=== PATIENT | female | born 1960 | race Caucasian/White ===

== ENCOUNTER 2018-01-31 14:13 | Inpatient (IN) | payer OTHER, SELFPAY ==
[2018-01-31] VITALS (12 sets, daily range): BP systolic 122–137; BP diastolic 64–93; PULSE 78–117; RESP 13–22; TEMP 36.3–38.4; O2SAT 98–100; BMI 18.4; BMI 17.1
[2018-01-31] MEDS: 0.9% Normal Saline 1,000 ML 999 ML IV ×2 (14:21)
[2018-01-31 14:26] LABS: Bedside Glucose 121 mg/dL (70-110)
[2018-01-31] MEDS: Acetaminophen 500 MG Tablet 1000 MG PO (14:41)
[2018-01-31 14:44] LABS: Absolute Lymphocyte Count 0.83 X10^3/ul (0.83-4.51); Absolute Neutrophil Count 15.2 X10^3/uL (2.0-7.7); Basophil# 0.02 X10^3/uL; Basophil% 0.1 % (0-1); Hematocrit 37.3 % (37-47); Hemoglobin 12.8 g/dl (12.0-15.0); Lymphocyte # 0.83 X10^3/ul (4.0); Lymphocyte % 4.9 % (19-41); Mean Corp Hgb Conc 34.3 g/gl (32-36); Mean Corpuscular Hgb 31.5 pg (27.0-32.0); Mean Corpuscular Volume 91.9 fL (81-99); Mean Platelet Vol. 11.1 fl (6.2-12.0); Monocyte# 0.62 X10^3/uL; Monocyte% 3.6 % (0-10); Neutrophil # 15.17 X10^3/uL (2.7-7.7); Neutrophil % 88.7 % (47-70); Platelet Count 142 K/mm3 (150-450); RBC Distribution Width CV 14.3 % (11.6-14.6); RBC Distribution Width SD 47.5 fl (35.1-43.9); Red Blood Count 4.06 M/mm3 (4.2-5.4); White Blood Count 17.1 K/mm3 (4.4-11.0)
[2018-01-31 14:45] LABS: POSITIVE COUNT YES; POSITIVE DIFFERENTIAL NO; POSITIVE MORPHOLOGY YES
[2018-01-31 14:48] LABS: Prothrombin Time (Protime)PT. 22.4 SECONDS (11.7-14.9)
[2018-01-31 14:49] LABS: Partial Thromboplast Time 39.7 Seconds (24.1-36.2)
[2018-01-31 15:00] LABS: Lactic Acid 1.8 mmol/L (0.4-2.0)
[2018-01-31 15:03] LABS: ALB/GLOB Ratio 0.8 RATIO (0.9-2.4); AST(SGOT) 157 U/L (15-37); Alanine Aminotransfer ALT/SGPT 116 U/L (13-56); Albumin, Serum 3.2 g/dL (3.2-5.0); Alkaline Phosphatase 108 U/L (45-117); Anion Gap 14 (5-15); BUN 32 mg/dL (7-18); BUN/Creat Ratio 22.9 RATIO (10-20); Calcium,Total 8.6 mg/dL (8.5-10.1); Chloride 100 mmol/L (98-107); EST Glomerular Filtration Rate 41 mL/min (>60); Est Glom Filt Rate - Afr Amer 50 mL/min (>60); Estimated Creatinine Clearance 33.02 ml/min; Globulin 4.2 g/dL (2.2-4.2); Glucose 120 mg/dL (74-106); Potassium 3.6 mmol/L (3.5-5.1); Protein, Total 7.4 g/dL (6.4-8.2); Sodium Level 136 mmol/L (136-145)
--- NOTE | 2018-01-31 15:16 | ED.VISSUMM ---
- ER Visit Summary Date of Service: 01/31/18 Chief Complaint: Fever History of Present Illness: The patient is a 57 F past medical history of a prior DVT on Coumadin, hypertension and prior breast CA with mastectomy. According to the friend no one heard from her from a couple of days. They sent the police for a well adult check and found her lying in bed. Squad brought her in was concern for dysarthria. She is also had a fever. Denies nausea or vomiting. Denies diarrhea. Physical Examination: Was informed middle-aged female looks older than her stated age. Blood pressure 137/93 temperature 100 and pulse ox 9 9% on room air. Clinically she is dehydrated with dry mucous membranes. HEENT exam otherwise unremarkable. Neck nontender. No lymphadenopathy. No meningismus. Lungs clear to auscultation bilaterally. Heart tachycardic rate about 105 no murmur. Abdomen soft and nontender. Normal bowel sounds no peritoneal signs. She is moving all 4 extremities. They are neurovascularly intact. Her right knee down her right foot has cellulitis. It is swollen and warm to touch. It is red. It does gary. Overall her skin has areas of bruising which she states is chronic. She also has redness on her upper extremity which she states is chronic also. Back exam is nontender. Neurologically she is awake and alert. She does have some mild dysarthria but otherwise her extremities appear to be neurovascularly intact. NIH score is 1. Test Results: Portal chest x-ray shows no acute abnormality. Normal cardiac silhouette. Read by myself. EKG sinus tachycardia rate of 102. No signs of ischemia. White count 17,100. Hemoglobin is 12. No bands. Electrolytes show a BUN of 32 creatinine 1.4 consistent with dehydration. Gap of 14. Liver enzymes slightly elevated ALT and AST otherwise unremarkable. She is on Coumadin her INR is 2.0. Troponin normal. Lactic acid normal 1.8. Emergency Department Course and Treatment: Patient treated with 2 L normal saline. P.o. Tylenol for fever. Reportedly per her she had a ampicillin allergy so she was placed on Rocephin and vancomycin for his cellulitis. Treatment Plan: Steve exam she is starting to feel little better. She received about 1 of the 2 L of normal saline. Is currently receiving both antibiotics. I have discussed with both her sisters and friends her diagnosis and admission. I very spoken to the hospitalist Dr. Viraj Silva rate about the patient in the admission. Disposition: Admission Impression: Acute right leg cellulitis Fever with leukocytosis. Sepsis Dehydration Anticoagulated with Coumadin This note was generated with [employer] dictation software. It may contain incorrect words, spelling, and punctuation that were not noted in review of the chart prior to signing ED Disposition - Plan for ED Patient: Chief Complaint: Neuro S/Sx Referrals: Diamond Sanchez MD [Primary Care Provider] -
--- NOTE | 2018-01-31 15:51 | PCM.HP.STD ---
Problem List (1) Sepsis Status: Acute (2) FRAN (acute kidney injury) Status: Acute (3) Cellulitis Status: Acute (4) Metabolic encephalopathy Status: Acute History of Present Illness Date of Admission: 01/31/18 Chief Complaint: sick. confused. The patient is a 57 year old F who has been feeling ill for the past 2 days. Patient has been weak as well and difficulty going to the bathroom. Patient said when she went to the bathroom she was unable to hold her urine long enough and did have to wet herself prior to make to the toilet. Patient notes increased redness of her right lower extremity. Patient states that she has she is a defect. Patient also has redness diffusely which is really unclear if this is new or old but daughter is at bedside seem to think that this is probably new. Patient was evaluated and then her right lower extremity was then more red and was treated cellulitis with vancomycin and ceftriaxone. Patient was clinically septic. Had right knee to 1.4 but no baseline available to compare to. [] Past Medical History Medical History: Medical History (Last Updated 01/31/18 @ 15:54 by Viraj Knight DO) VTE (venous thromboembolism) I82.90 Allergies ampicillin Allergy (Verified 01/31/18 14:26) Rash Home Medications: Ambulatory Orders Medication Instructions Recorded Gabapentin [Neurontin] 600 mg PO BID 01/31/18 Primidone [Mysoline] 50 - 100 mg PO BID 01/31/18 Spironolactone [Spironolactone] 25 mg PO DAILY 01/31/18 Warfarin Sodium [Warfarin Sodium] 15 mg PO DAILY 01/31/18 Surgical History: mastectomy, - - Skin graft from abdomen Psychiatric History: No pertinent psych hx Lives: Alone Smoking Status: Never smoker Tobacco Use: Non-smoker Alcohol: None Drugs: None - *Family History Maternal History Items: - - No breast cancer Review of Systems Constitutional: Reports: Chills, Fever. Denies: Anorexia Eyes: Denies: Blurred vision, Double vision HEENT: Denies: Head Aches, Sinus Congestion, Sinus Drainage Cardiovascular: Denies: Chest Pain, Palpitations Respiratory: Denies: Cough, Shortness of breath at rest, Sputum production Gastrointestinal: Reports: Diarrhea. Denies: Abdominal Pain, Constipation, Nausea, Vomiting Genitourinary: Reports: Incontinence. Denies: Dysuria Musculoskeletal: Denies: Joint Pain, Joint Tenderness Skin: Reports: - - Chronic rash and erythema involving her is a defects. Patient also with a rash diffusely which patient is not clear if this is new or old Neurological: Denies: Balance problems, Focal weakness Psychiatric: Denies: Anxiety, Depression Hematologic/ Lymphatic: Reports: Hx of blood clot. Denies: Easy Bruising, Easy Bleeding Comment: All review of systems are negative except as mentioned in the history of present illness and the other review of systems. VTE Information - Inpt Only VTE Present on Admission: No VTE Mechan Device Prophylaxis: None VTE Pharm Prophylaxis ordered?: Yes Patient Problems: Active and Suspected Problems Sepsis (Acute) FRAN (acute kidney injury) (Acute) Cellulitis (Acute) Metabolic encephalopathy (Acute) - Physical Exam General: Cooperative, No apparent distress, - - Slightly confused. Difficulty finding some words. HEENT: Atraumatic, PERRLA, EOMI, Normocephalic, - - No icterus Oral: Moist Mucosa, Dry Mucosa Neck: No Nodes, Thyroid Normal Size and Texture Lungs: Clear to auscultation, Normal air movement, No rhonchi, No wheeze Cardiovascular: Regular rate, Regular Rhythm, Normal S1, Normal S2, No murmurs Abdomen: Bowel Sounds Present, Soft, Non Tender, Non-Distended, No Hepato-splenomegaly Extremities: No edema, No Calf Tenderness Skin: - - Diffuse macular rash throughout. Most prominent on the right lower extremity below the knee with a little bit more density. But also noted on her upper extremities chest and abdomen. Seems to be sparing actually her skin grafts on her chest though there are some smaller lesions noted throughout but not confluent but pretty clear demarcation involving Musculoskeletal: No Tenderness to Palpation of Joints or Extremities, Cachexia Neurological: Cranial nerves II-XII grossly intact, Motor Exam 5/5 strength throughout Psych/Mental Status: Appropriate Vital Signs Temp Pulse Resp BP Pulse Ox 38.4 C H 104 H 18 122/74 H 98 01/31/18 14:26 01/31/18 15:24 01/31/18 15:24 01/31/18 15:24 01/31/18 15:24 Clinical Impression(s) from Imaging Studies Brain CT 01/31/18 14:27 IMPRESSION: Questionable area of decreased attenuation in the insular cortex of the right temporal lobe as well as a decreased sulcal markings in the left cerebral hemisphere. MRI is recommended for further evaluation. Several punctate calcifications in the brainstem as described. Electronically Signed: Stephen Jules MD at 15:20 EDT Tel [phone], Service support , Chest X-Ray 01/31/18 15:05 IMPRESSION: Hyperinflation. No acute abnormality is seen. Electronically Signed: Stephen Jules MD at 15:21 EDT Tel [phone], Service support , Assessment/Plan All Active Problems Sepsis (Acute) FRAN (acute kidney injury) (Acute) Cellulitis (Acute) Metabolic encephalopathy (Acute) 1. Sepsis Unclear etiology the patient will be treated empirically for cellulitis at this time. Blood cultures drawn in the emergency room Will check urinalysis and urine culture as well 2. Possible right lower extremity cellulitis Patient has a diffuse rash but most prominent on her right distal lower extremity Patient will be on vancomycin 3. Acute kidney injury, presumed Will hold the patient's spironolactone IV fluids Reevaluate in the morning 4. Presumed metabolic encephalopathy The patient is septic as well as dehydrated which is really could be the etiologies of her confusion However, the CAT scan showed an area in the temporal lobe as well as some punctate lesions in the brainstem Twitch him in order a stroke workup with an MRI of the brain, MRA of the head and neck, echocardiogram and neurology consultation. 5. Rash Patient saying that the much of this is chronic but having never seen her before and have no previous documentation I cannot verify that for sure Could be related with a drug rash, viral exanthem or some other allergic reaction Could be a leukocytoclastic vasculitis Check an OSBALDO 6. Venous thromboembolic disease INR is therapeutic at 2 Continue with Coumadin 7. DVT prophylaxis: Patient is anticoagulated Code Visit Inpatient E&M: 04620 Init Hosp L3
--- NOTE | 2018-01-31 16:55 | PCM.RX.CS ---
Consult Pharmacy has been consulted to manage selected antiobiotic: Vancomycin Type of Consult: New start Suspected Infection: Sepsis Prior Doses of Antibiotics Received/Current Regimen: VANCOMYCIN 750MG IV X1 IN ED 01/31/18 @1455 Labs: Sodium 136 mmol/L (136-145) 01/31/18 14:25 Potassium 3.6 mmol/L (3.5-5.1) 01/31/18 14:25 Chloride 100 mmol/L (98-107) 01/31/18 14:25 Carbon Dioxide 22.0 mmol/L (21.0-32.0) 01/31/18 14:25 Anion Gap 14 (5-15) 01/31/18 14:25 BUN 32 mg/dL (7-18) H 01/31/18 14:25 Creatinine 1.40 mg/dL (0.55-1.02) H 01/31/18 14:25 Est GFR (MDRD) Af Amer 50 mL/min (>60) L 01/31/18 14:25 Est GFR (MDRD) Non-Af 41 mL/min (>60) L 01/31/18 14:25 BUN/Creatinine Ratio 22.9 RATIO (10-20) H 01/31/18 14:25 Glucose 120 mg/dL (74-106) H 01/31/18 14:25 Weight used for dosin.8 kg Estimated Creatinine Clearance: 33ML/MIN Goal Trough: 15-20 mcg/mL Pharmacy Plan for Drug Dosing: PLAN/RECOMMENDATION 1. Start vancomycin 750mg IV Q24hrs to start 02/01/18 @1500 (24hrs from ED vancomycin admin) 2. Trough scheduled 02/02/18 @1430, prior to 3rd dose of vancomycin 3. Pharmacy Service will continue to monitor and adjust dosing as required.
[2018-01-31] MEDS: 0.9% Normal Saline 1,000 ML 150 ML IV ×2 (17:02→23:51)
[2018-01-31] MEDS: Aspirin 325 MG Tablet PO (17:05)
[2018-01-31 17:13] LABS: Erythrocyte Sedimentation Rate 82 mm/hr (0-30)
[2018-01-31] MEDS: Ondansetron 4 MG/2 ML Vial IV (19:56)
[2018-01-31] MEDS: Acetaminophen 325 MG Tablet 650 MG PO (21:08)
[2018-01-31] MEDS: Primidone 50 MG Tablet PO (21:08)
[2018-02-01] VITALS (11 sets, daily range): BP systolic 109–131; BP diastolic 63–71; PULSE 72–87; RESP 16–18; TEMP 36.5–37.3; O2SAT 98–100; BMI 17.1
[2018-02-01] MEDS: Acetaminophen 325 MG Tablet 650 MG PO ×3 (04:35→22:44)
[2018-02-01 06:40] LABS: International Normalized Ratio 3.1; Prothrombin Time (Protime)PT. 32.3 SECONDS (11.7-14.9)
[2018-02-01 06:44] LABS: Absolute Lymphocyte Count 0.56 X10^3/ul (0.83-4.51); Absolute Neutrophil Count 8.3 X10^3/uL (2.0-7.7); Basophil# 0.01 X10^3/uL; Basophil% 0.1 % (0-1); Hematocrit 33.3 % (37-47); Lymphocyte # 0.56 X10^3/ul (4.0); Lymphocyte % 6.2 % (19-41); Mean Corpuscular Hgb 30.6 pg (27.0-32.0); Mean Corpuscular Volume 92.5 fL (81-99); Mean Platelet Vol. 11.2 fl (6.2-12.0); Monocyte# 0.12 X10^3/uL; Monocyte% 1.3 % (0-10); Neutrophil # 8.27 X10^3/uL (2.7-7.7); Neutrophil % 92.1 % (47-70); Platelet Count 110 K/mm3 (150-450); RBC Distribution Width CV 14.6 % (11.6-14.6)
[2018-02-01 06:49] LABS: POSITIVE COUNT NO
[2018-02-01 06:50] LABS: Differential Indicated SCAN CRITERIA MET; POSITIVE DIFFERENTIAL YES; POSITIVE MORPHOLOGY YES
[2018-02-01 06:55] LABS: Anion Gap 15 (5-15); BUN 22 mg/dL (7-18); BUN/Creat Ratio 26.4 RATIO (10-20); Calcium,Total 7.4 mg/dL (8.5-10.1); Chloride 109 mmol/L (98-107); Cholesterol 143 mg/dL (200); Creatinine, Serum 0.83 mg/dL (0.55-1.02); EST Glomerular Filtration Rate 75 mL/min (>60); Est Glom Filt Rate - Afr Amer 90 mL/min (>60); Estimated Creatinine Clearance 51.71 ml/min; Glucose 98 mg/dL (74-106); High Density Lipoprotein 56 mg/dL; Potassium 3.6 mmol/L (3.5-5.1); Sodium Level 140 mmol/L (136-145); Triglycerides 92 mg/dL; Very Low Density Lipoprotein 18 mg/dL (5-40)
[2018-02-01 07:09] LABS: Differential Comment SCANNED
[2018-02-01 10:13] LABS: Mucous, Urine 0 SEEN /hpf (<or=2+); White Blood Cells 0 SEEN /hpf (0-5)
[2018-02-01 10:14] LABS: Color, Urine Yellow (Yellow); Glucose, Dipstick Normal (Normal); Ketone-Dipstick 5 mg/dl (Negative); Leukocyte Esterase-Dipstick 25 /ul (Negative); Nitrite-Dipstick Negative (Negative); Occult Blood-Urine 150 /ul (Negative); Protein-Dipstick 30 mg/dl (Negative); Specific Gravity, Urine 1.015 (1.002-1.030); Urine Bilirubin Dipstick Negative (Negative); Urine Clarity Clear (Clear); Urine Urobilinogen Normal (Normal)
[2018-02-01 10:22] LABS: Bacteria 1+ /hpf (None Seen); Red Blood Cells-Urine 0-5 SEEN /hpf (0-5); Squamous Epithelial Cells - UA 0-5 SEEN /hpf (5-10)
[2018-02-01] MEDS: Aspirin 81 MG TAB.CHEW PO (10:52)
[2018-02-01] MEDS: Primidone 50 MG Tablet PO ×2 (10:52→22:44)
[2018-02-01 10:54] LABS: Pathologist Review Reviewed
--- NOTE | 2018-02-01 11:39 | CON.PCM_ITS ---
Reason for Consult Date of Consultation: 02/01/18 Reason for Consultation: confusion History of Present Illness: The patient is a 57 year old F presents for confusion, has had an inflamed right leg, friends present who report she was normal until monday, monday became abnormal, much improved today. denies med errors. takes primidone for tremor and gabapentin for hot flashes as well as bp meds/ per admit h&p:The patient is a 57 year old F who has been feeling ill for the past 2 days. Patient has been weak as well and difficulty going to the bathroom. Patient said when she went to the bathroom she was unable to hold her urine long enough and did have to wet herself prior to make to the toilet. Patient notes increased redness of her right lower extremity. Patient states that she has she is a defect. Patient also has redness diffusely which is really unclear if this is new or old but daughter is at bedside seem to think that this is probably new. Patient was evaluated and then her right lower extremity was then more red and was treated cellulitis with vancomycin and ceftriaxone. Patient was clinically septic. Had right knee to 1.4 but no baseline available to compare to. Past Medical History Medical History: Medical History (Last Updated 02/01/18 @ 11:42 by Raghu Rao MD) Tremor R25.1 VTE (venous thromboembolism) I82.90 Hypertension I10 Allergies ampicillin Allergy (Verified 01/31/18 14:26) Rash Home Medications: Ambulatory Orders Medication Instructions Recorded Gabapentin [Neurontin] 600 mg PO BID 01/31/18 Primidone [Mysoline] 50 - 100 mg PO BID 01/31/18 Spironolactone [Spironolactone] 25 mg PO DAILY 01/31/18 Warfarin Sodium [Warfarin Sodium] 15 mg PO DAILY 01/31/18 Surgical History: mastectomy, - - Skin graft from abdomen Psychiatric History: No pertinent psych hx Lives: Alone Smoking Status: Never smoker Tobacco Use: Non-smoker Alcohol: None Drugs: None - *Family History Maternal History Items: - - No breast cancer Review of Systems Constitutional: Denies: Chills, Fever, Weight Change HEENT: Denies: Head Aches, Sinus Congestion, Sinus Drainage Cardiovascular: Denies: Chest Pain, Palpitations Respiratory: Denies: Cough, Shortness of breath at rest, Sputum production Gastrointestinal: Denies: Abdominal Pain, Nausea, Vomiting Genitourinary: Denies: Dysuria Musculoskeletal: Denies: Joint Pain, Joint Tenderness Skin: Denies: Rash, Wounds Neurological: Denies: Numbness, Tingling, Focal weakness Psychiatric: Denies: Anxiety, Depression, Homicidal Ideations, Suicidal Ideations Hematologic/ Lymphatic: Denies: Easy Bruising, Easy Bleeding Patient Problems: Active and Suspected Problems (Last Updated 02/01/18 @ 11:42 by Raghu Rao MD) Sepsis (Acute) FRAN (acute kidney injury) (Acute) Cellulitis (Acute) Metabolic encephalopathy (Acute) - Physical Exam General: Alert, Oriented x3, Cooperative HEENT: Atraumatic, PERRLA, EOMI, Normocephalic Neck: Supple, No JVD, Negative Carotid Bruits Lungs: Clear to auscultation, Normal air movement Cardiovascular: Regular rate, No murmurs Abdomen: Bowel Sounds Present, Soft, Non Tender Extremities: No edema, Capillary Refill Less than 3 Seconds, - - left leg erythema Skin: No rashes, No breakdown Musculoskeletal: No Tenderness to Palpation of Joints or Extremities Neurological: Cranial nerves II-XII grossly intact Psych/Mental Status: Normal Affect, Appropriate Vital Signs Temp Pulse Resp BP Pulse Ox 36.8 C 72 16 131/65 H 100 02/01/18 08:00 02/01/18 08:00 02/01/18 08:00 02/01/18 08:00 02/01/18 08:00 Oxygen Delivery Method Room Air Weight: 43.8 kg Body Mass Index (BMI) 17.1 Intake and Output for Last 24 Hours 01/30/18 01/31/18 02/01/18 23:59 23:59 23:59 Intake Total 2099 1565 / 1565 Balance 2099 1565 / 1565 Laboratory Tests Past 24 Hrs 02/01/18 02/01/18 02/01/18 05:48 05:48 05:48 WBC 9.0 RBC 3.60 L Hgb 11.0 L Hct 33.3 L MCV 92.5 MCH 30.6 MCHC 33.0 RDW 14.6 RDW Differential 50.0 H Plt Count 110 L MPV 11.2 Immature Gran % (Auto) 0.300 Neut % (Auto) 92.1 H Lymph % (Auto) 6.2 L [place] % (Auto) 1.3 Eos % (Auto) 0.0 Baso % (Auto) 0.1 Absolute Neuts (auto) 8.3 H Absolute Lymphs (auto) 0.56 L Total Counted Not Reportable Differential Comment SCANNED PT INR Sodium 140 Potassium 3.6 Chloride 109 H Carbon Dioxide 16.0 L Anion Gap 15 BUN 22 H Creatinine 0.83 Estim Creat Clear Calc 51.71 Est GFR (MDRD) Af Amer 90 Est GFR (MDRD) Non-Af 75 BUN/Creatinine Ratio 26.4 H Glucose 98 Calcium 7.4 L Triglycerides 92 Cholesterol 143 LDL Cholesterol 69 VLDL Cholesterol 18 HDL Cholesterol 56 Urine Color Urine Clarity Urine pH Ur Specific [place] Urine Protein Urine Glucose (UA) Urine Ketones Urine Occult Blood Urine Nitrite Urine Bilirubin Urine Urobilinogen Ur Leukocyte Esterase Urine RBC Urine WBC Ur Squamous Epith Cells Urine Bacteria Urine Mucus OSBALDO Screen Pending JANUARY-1 Antibody Pending SS-A/Ro IgG Antibody Pending SS-B/La IgG Antibody Pending Sm (Laura) Antibody Pending [employer] Antibody Pending Scl-70 Scleroderma Ab Pending Double Strand DNA Ab Pending Centromere B Antibody Pending 02/01/18 02/01/18 05:48 10:00 WBC RBC Hgb Hct MCV MCH MCHC RDW RDW Differential Plt Count MPV Immature Gran % (Auto) Neut % (Auto) Lymph % (Auto) [place] % (Auto) Eos % (Auto) Baso % (Auto) Absolute Neuts (auto) Absolute Lymphs (auto) Total Counted Differential Comment PT 32.3 H INR 3.1 Sodium Potassium Chloride Carbon Dioxide Anion Gap BUN Creatinine Estim Creat Clear Calc Est GFR (MDRD) Af Amer Est GFR (MDRD) Non-Af BUN/Creatinine Ratio Glucose Calcium Triglycerides Cholesterol LDL Cholesterol VLDL Cholesterol HDL Cholesterol Urine Color Yellow Urine Clarity Clear Urine pH 6.0 Ur Specific [place] 1.015 Urine Protein 30 H Urine Glucose (UA) Normal Urine Ketones 5 H Urine Occult Blood 150 H Urine Nitrite Negative Urine Bilirubin Negative Urine Urobilinogen Normal Ur Leukocyte Esterase 25 H Urine RBC 0-5 SEEN Urine WBC 0 SEEN Ur Squamous Epith Cells 0-5 SEEN Urine Bacteria 1+ Urine Mucus 0 SEEN OSBALDO Screen JANUARY-1 Antibody SS-A/Ro IgG Antibody SS-B/La IgG Antibody Sm (Laura) Antibody [employer] Antibody Scl-70 Scleroderma Ab Double Strand DNA Ab Centromere B Antibody Assessment/Plan All Active Problems (Last Updated 02/01/18 @ 11:42 by Raghu Rao MD) Sepsis (Acute) FRAN (acute kidney injury) (Acute) Cellulitis (Acute) Metabolic encephalopathy (Acute) encephalopathy, improved, likely due to cellulitis check primidone level no further neuro recs
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
--- NOTE | 2018-02-01 14:52 | CASEMGMT ---
Face to Face with patient for initial transition planning/care coordination assessment. RN MEAGAN introduced self and role at [facility], pt voices understanding and consents to assessment at this time. Pt is sitting up in bed in no distress at this time. Pt is A/Ox4 at this time and answers all questions appropriately at this time. Care providers, pharmacy, and demographics verified. See attached link. Pt voices no further concerns/needs at this time. Advised pt to ask for CM if any further questions/concerns/needs arise, voices understanding. CM to follow for any further discharge planning/needs. PLAN: [place] [facility]
--- NOTE | 2018-02-01 14:52 | PCM.RX.CS ---
Consult Pharmacy has been consulted to manage selected antiobiotic: Vancomycin Type of Consult: Follow-up Suspected Infection: Sepsis Labs: Sodium 140 mmol/L (136-145) 02/01/18 05:48 Potassium 3.6 mmol/L (3.5-5.1) 02/01/18 05:48 Chloride 109 mmol/L (98-107) H 02/01/18 05:48 Carbon Dioxide 16.0 mmol/L (21.0-32.0) L 02/01/18 05:48 Anion Gap 15 (5-15) 02/01/18 05:48 BUN 22 mg/dL (7-18) H 02/01/18 05:48 Creatinine 0.83 mg/dL (0.55-1.02) 02/01/18 05:48 Est GFR (MDRD) Af Amer 90 mL/min (>60) 02/01/18 05:48 Est GFR (MDRD) Non-Af 75 mL/min (>60) 02/01/18 05:48 BUN/Creatinine Ratio 26.4 RATIO (10-20) H 02/01/18 05:48 Glucose 98 mg/dL (74-106) 02/01/18 05:48 Goal Trough: 15-20 mcg/mL Pharmacy Plan for Drug Dosing: The patient was initiated on vancomycin 750mg IV q24hrs after an initial dose of 750mg was given in the ED 01/31 @1455. At that time, the patient has a SCr of 1.4 (est CrCl~33ml/min). Upon daily review this afternoon, the patient had an improvement in SCr to 0.83 (est CrCl~52mL/min). Given this significant change in creatinine, the patient's regimen was changed to 500mg IV to Q12hrs to start this afternoon in place of the original 750mg IV Q24hrs. The pharmacist contacted nursing, and the initial dose was not yet given. The trough time will remain the same. PLAN/RECOMMENDATIONS 1. Change vancomycin to 500mg Q12hrs to start 02/01/18 @1500 2. Trough still scheduled for 02/02/18 @1430, prior to 4th total dose 3. Pharmacy Service will continue to monitor and adjust dosing as required.
[2018-02-01] MEDS: Cefazolin 1 GM/50 ML BAG IV (22:45)
[2018-02-02] VITALS (12 sets, daily range): BP systolic 120–131; BP diastolic 66–70; PULSE 80–120; RESP 16–18; TEMP 36.7–37.2; O2SAT 97–100; BMI 17.1
[2018-02-02] MEDS: Cefazolin 1 GM/50 ML BAG IV ×3 (05:05→23:06)
[2018-02-02 06:40] LABS: Absolute Lymphocyte Count 0.52 X10^3/ul (0.83-4.51); Basophil# 0.01 X10^3/uL; Basophil% 0.2 % (0-1); Differential Indicated SCAN CRITERIA MET; Eosinophil# 0.05 X10^3/uL; Eosinophils% 0.8 % (0-5); Hemoglobin 10.8 g/dl (12.0-15.0); Lymphocyte # 0.52 X10^3/ul (4.0); Lymphocyte % 8.7 % (19-41); Mean Corp Hgb Conc 33.8 g/gl (32-36); Mean Corpuscular Hgb 30.8 pg (27.0-32.0); Mean Corpuscular Volume 91.2 fL (81-99); Monocyte# 0.39 X10^3/uL; Monocyte% 6.5 % (0-10); Neutrophil # 4.98 X10^3/uL (2.7-7.7); Neutrophil % 83.6 % (47-70); POSITIVE COUNT NO; POSITIVE DIFFERENTIAL YES; POSITIVE MORPHOLOGY NO; Platelet Count 121 K/mm3 (150-450); RBC Distribution Width CV 14.7 % (11.6-14.6); RBC Distribution Width SD 49.3 fl (35.1-43.9); Red Blood Count 3.51 M/mm3 (4.2-5.4)
[2018-02-02 06:41] LABS: International Normalized Ratio 2.9; Prothrombin Time (Protime)PT. 30.6 SECONDS (11.7-14.9)
[2018-02-02 07:00] LABS: Differential Comment SCANNED
[2018-02-02 07:04] LABS: ALB/GLOB Ratio 0.6 RATIO (0.9-2.4); AST(SGOT) 72 U/L (15-37); Alanine Aminotransfer ALT/SGPT 75 U/L (13-56); Albumin, Serum 2.4 g/dL (3.2-5.0); Alkaline Phosphatase 101 U/L (45-117); Anion Gap 12 (5-15); BUN 13 mg/dL (7-18); BUN/Creat Ratio 18.5 RATIO (10-20); Calcium,Total 8.1 mg/dL (8.5-10.1); Chloride 110 mmol/L (98-107); EST Glomerular Filtration Rate 91 mL/min (>60); Est Glom Filt Rate - Afr Amer 110 mL/min (>60); Estimated Creatinine Clearance 61.31 ml/min; Globulin 3.8 g/dL (2.2-4.2); Glucose 88 mg/dL (74-106); Potassium 3.1 mmol/L (3.5-5.1); Protein, Total 6.2 g/dL (6.4-8.2); Sodium Level 141 mmol/L (136-145)
[2018-02-02] MEDS: Spironolactone 25 MG Tablet PO (09:51)
[2018-02-02] MEDS: Aspirin 81 MG TAB.CHEW PO (09:51)
[2018-02-02] MEDS: Primidone 50 MG Tablet PO ×2 (09:51→23:06)
[2018-02-02] MEDS: Acetaminophen 325 MG Tablet 650 MG PO ×2 (12:14→20:43)
--- NOTE | 2018-02-02 13:30 | PCM.PROGNOTE ---
<Axel Harding - Last Filed: 02/02/18 13:30> Patient Problems: Active and Suspected Problems (Last Updated 02/01/18 @ 11:42 by Raghu Rao MD) Sepsis (Acute) FRAN (acute kidney injury) (Acute) Cellulitis (Acute) Metabolic encephalopathy (Acute) Subjective: Patient is resting comfortably in chair at bedside. No fevers or chills, no night sweats, overall feels slightly improved. Her right leg is still somewhat edematous, hot, mildly painful. She does have some pain with walking and is concerned about going back to live in her apartment where she has to climb stairs. Her mentation seems to be improved as she is answering questions appropriately and were quickly today. Today she also requested that we examine her ear as she has been having some pain in her right ear. - Physical Exam General: Alert, Oriented x3, Cooperative HEENT: Atraumatic, PERRLA, EOMI, Normocephalic, - - right TM erythematous. Neck: Supple, No JVD, Negative Carotid Bruits Lungs: Clear to auscultation, Normal air movement Cardiovascular: Regular rate, No murmurs Abdomen: Bowel Sounds Present, Soft, Non Tender Extremities: No edema, Capillary Refill Less than 3 Seconds, - - Right lower extremity cellulitic changes, erythema, warmth, swelling, very small petechia within the area of erythema. Minimal improvement since yesterday. Tender to palpation Skin: No rashes, No breakdown Musculoskeletal: No Tenderness to Palpation of Joints or Extremities Neurological: Cranial nerves II-XII grossly intact Psych/Mental Status: Normal Affect, Appropriate, Alert and oriented to time, place, person, mood and affect Vital Signs Temp Pulse Resp BP Pulse Ox 98.9 F 84 17 129/70 H 99 02/02/18 08:00 02/02/18 11:07 02/02/18 08:00 02/02/18 08:00 02/02/18 08:00 Oxygen Delivery Method Room Air Weight: 96 lb 8.999 oz Body Mass Index (BMI) 17.1 Intake and Output for Last 24 Hours 01/31/18 02/01/18 02/02/18 23:59 23:59 23:59 Intake Total 2099 2164 / 2164 336 / 336 Balance 2099 2164 / 2164 336 / 336 Microbiology Past 72 Hours 02/01/18 10:00 Urine Culture - Preliminary Urine, Clean Catch Culture exhibits no growth. Laboratory Tests Past 24 Hrs 02/02/18 02/02/18 02/02/18 06:13 06:13 06:13 WBC 6.0 RBC 3.51 L Hgb 10.8 L Hct 32.0 L MCV 91.2 MCH 30.8 MCHC 33.8 RDW 14.7 H RDW Differential 49.3 H Plt Count 121 L MPV 11.0 Immature Gran % (Auto) 0.200 Neut % (Auto) 83.6 H Lymph % (Auto) 8.7 L [place] % (Auto) 6.5 Eos % (Auto) 0.8 Baso % (Auto) 0.2 Absolute Neuts (auto) 5.0 Absolute Lymphs (auto) 0.52 L Total Counted Not Reportable Differential Comment SCANNED PT 30.6 H INR 2.9 Sodium 141 Potassium 3.1 L Chloride 110 H Carbon Dioxide 19.0 L Anion Gap 12 BUN 13 Creatinine 0.70 Estim Creat Clear Calc 61.31 Est GFR (MDRD) Af Amer 110 Est GFR (MDRD) Non-Af 91 BUN/Creatinine Ratio 18.5 Glucose 88 Calcium 8.1 L Total Bilirubin 0.30 AST 72 H ALT 75 H Alkaline Phosphatase 101 Total Protein 6.2 L Albumin 2.4 L Globulin 3.8 Albumin/Globulin Ratio 0.6 L Medical Necessity - Tobacco Use Smoking Status: Never smoker Tobacco Use: Non-smoker Assessment/Plan All Active Problems (Last Updated 02/01/18 @ 11:42 by aRghu Rao MD) Sepsis (Acute) FARN (acute kidney injury) (Acute) Cellulitis (Acute) Metabolic encephalopathy (Acute) 1. Acute sepsis 2/2 RLE cellulitis - suspect streptococcal -continue Ancef. Slowly improving. No fever or white count at this time. She has had cellulitis of this leg in the past, will look for significant improvement before planning to change to p.o. with discharge. 2. Acute metabolic encephalopathy - per Neuro MRI small aneurysm is incidental and not clinically relevant. Change in mental status 2/2 infection. Overall improved. 3. FRAN 2/2 sepsis - resolved. 4. CMTC - congenital, chronic rashes, chronic proximal joint pain, rheumatoid panel pending. 5. Mild normocytic anemia - trend. 6. Thrombocytopenia - trend 7. 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 Hold tonights dose. 8. Acute otitis media-Ancef will cover for this appropriately. 9. Essential tremor - primidone 10. Hypokalemia - restart aldactone. DVT ppx: warfarin therapeutic DC planning: pending pt further improvement. This patient was seen by Axle Harding PA-C under the supervision of Doctor Pooja. <Pooja,[place] - Last Filed: 02/02/18 15:39> - Physical Exam Vital Signs Temp Pulse Resp BP Pulse Ox 98.6 F 88 18 121/66 H 97 02/02/18 14:30 02/02/18 14:30 02/02/18 14:30 02/02/18 14:30 02/02/18 14:30 Oxygen Delivery Method Room Air Weight: 43.8 kg Body Mass Index (BMI) 17.1 Intake and Output for Last 24 Hours 01/31/18 02/01/18 02/02/18 23:59 23:59 23:59 Intake Total 2100 / 2100 2164 / 2164 656 / 656 Output Total 400 / 400 Balance 2099 / 2100 2164 / 2164 256 / 256 Microbiology Past 72 Hours 02/01/18 10:00 Urine Culture - Preliminary Urine, Clean Catch Culture exhibits no growth. Laboratory Tests Past 24 Hrs 02/02/18 02/02/18 02/02/18 06:13 06:13 06:13 WBC 6.0 RBC 3.51 L Hgb 10.8 L Hct 32.0 L MCV 91.2 MCH 30.8 MCHC 33.8 RDW 14.7 H RDW Differential 49.3 H Plt Count 121 L MPV 11.0 Immature Gran % (Auto) 0.200 Neut % (Auto) 83.6 H Lymph % (Auto) 8.7 L [place] % (Auto) 6.5 Eos % (Auto) 0.8 Baso % (Auto) 0.2 Absolute Neuts (auto) 5.0 Absolute Lymphs (auto) 0.52 L Total Counted Not Reportable Differential Comment SCANNED PT 30.6 H INR 2.9 Sodium 141 Potassium 3.1 L Chloride 110 H Carbon Dioxide 19.0 L Anion Gap 12 BUN 13 Creatinine 0.70 Estim Creat Clear Calc 61.31 Est GFR (MDRD) Af Amer 110 Est GFR (MDRD) Non-Af 91 BUN/Creatinine Ratio 18.5 Glucose 88 Calcium 8.1 L Total Bilirubin 0.30 AST 72 H ALT 75 H Alkaline Phosphatase 101 Total Protein 6.2 L Albumin 2.4 L Globulin 3.8 Albumin/Globulin Ratio 0.6 L Assessment/Plan Patient was seen and examined. I agree with his interval history, physical exam and assessment and plan as documented by JOSH Anderson. Patient feels improved, denies any fever or chills or worsening shortness of breath. Complains of right ear pain. Also complains of white oating on tongue Still has right lower extremity swelling and redness, slightly improved. Vitals are stable. Labs appear improved - Hypokalemia, K 3.1, replaced Meds reviewed -continue with cefazolin IV Code Visit Inpatient E&M: [id number] Subs Hosp L2
[2018-02-02] MEDS: NYSTATIN 500,000 UNIT/5 ML UDC 500000 UNIT PO ×2 (17:32→23:06)
[2018-02-02 18:29] LABS: ANTINUCLEAR ANTIBODIES DIRECT Negative (Negative)
[2018-02-02 22:10] LABS: Color, Urine Yellow (Yellow); Glucose, Dipstick Normal (Normal); Ketone-Dipstick Negative (Negative); Leukocyte Esterase-Dipstick Negative /ul (Negative); Nitrite-Dipstick Negative (Negative); Occult Blood-Urine 150 /ul (Negative); Protein-Dipstick 30 mg/dl (Negative); Urine Bilirubin Dipstick Negative (Negative); Urine Clarity Clear (Clear); Urine Urobilinogen Normal (Normal); Urine pH 6.5 (5.0 - 8.0)
[2018-02-03] VITALS (10 sets, daily range): BP systolic 116–132; BP diastolic 61–72; PULSE 69–109; RESP 14–18; TEMP 36.8–37.2; O2SAT 95–100; BMI 17.1
[2018-02-03 06:03] LABS: Absolute Lymphocyte Count 0.77 X10^3/ul (0.83-4.51); Absolute Neutrophil Count 6.1 X10^3/uL (2.0-7.7); Basophil# 0.01 X10^3/uL; Basophil% 0.1 % (0-1); Eosinophil# 0.08 X10^3/uL; Hematocrit 32.4 % (37-47); Lymphocyte # 0.77 X10^3/ul (4.0); Mean Corpuscular Hgb 30.8 pg (27.0-32.0); Mean Corpuscular Volume 90.8 fL (81-99); Mean Platelet Vol. 10.8 fl (6.2-12.0); Monocyte# 0.72 X10^3/uL; Monocyte% 9.4 % (0-10); Neutrophil # 6.08 X10^3/uL (2.7-7.7); Neutrophil % 79.2 % (47-70); Platelet Count 143 K/mm3 (150-450); RBC Distribution Width CV 14.5 % (11.6-14.6); RBC Distribution Width SD 48.3 fl (35.1-43.9); Red Blood Count 3.57 M/mm3 (4.2-5.4); White Blood Count 7.7 K/mm3 (4.4-11.0)
[2018-02-03 06:05] LABS: POSITIVE COUNT NO; POSITIVE DIFFERENTIAL NO; POSITIVE MORPHOLOGY NO
[2018-02-03] MEDS: Cefazolin 1 GM/50 ML BAG IV ×3 (06:07→21:19)
[2018-02-03] MEDS: Acetaminophen 325 MG Tablet 650 MG PO ×3 (06:08→22:24)
[2018-02-03 06:11] LABS: International Normalized Ratio 1.8; Prothrombin Time (Protime)PT. 21.1 SECONDS (11.7-14.9)
[2018-02-03 06:25] LABS: Anion Gap 11 (5-15); BUN 11 mg/dL (7-18); BUN/Creat Ratio 17.4 RATIO (10-20); Calcium,Total 8.4 mg/dL (8.5-10.1); Chloride 108 mmol/L (98-107); Creatinine, Serum 0.63 mg/dL (0.55-1.02); EST Glomerular Filtration Rate 102 mL/min (>60); Est Glom Filt Rate - Afr Amer 124 mL/min (>60); Estimated Creatinine Clearance 68.12 ml/min; Glucose 93 mg/dL (74-106); Potassium 3.8 mmol/L (3.5-5.1); Sodium Level 141 mmol/L (136-145)
[2018-02-03] MEDS: NYSTATIN 500,000 UNIT/5 ML UDC 500000 UNIT PO ×4 (09:17→21:19)
[2018-02-03] MEDS: Primidone 50 MG Tablet PO ×2 (09:17→21:19)
[2018-02-03] MEDS: Aspirin 81 MG TAB.CHEW PO (09:17)
[2018-02-03] MEDS: Spironolactone 25 MG Tablet PO (09:17)
[2018-02-03] MEDS: Gabapentin 600 MG Tablet PO ×2 (09:19→21:19)
--- NOTE | 2018-02-03 14:12 | PCM.PROGNOTE ---
<Axel Harding - Last Filed: 02/03/18 14:12> Patient Problems: Active and Suspected Problems (Last Updated 02/01/18 @ 11:42 by Raghu Rao MD) Sepsis (Acute) FRAN (acute kidney injury) (Acute) Cellulitis (Acute) Metabolic encephalopathy (Acute) Subjective: Overall the patient states that she is feeling better everyday. However her leg does not seem very improved. It is still painful at rest and to walk on, still swollen, red, and hot. She has no fever or chills. No cough, sob. She is ambulatory but with some difficulty due to the leg. She thinks the rashes on the rest of her body have improved. - Physical Exam General: Alert, Oriented x3, Cooperative HEENT: Atraumatic, PERRLA, EOMI, Normocephalic Neck: Supple, No JVD, Negative Carotid Bruits Lungs: Clear to auscultation, Normal air movement Cardiovascular: Regular rate, No murmurs Abdomen: Bowel Sounds Present, Soft, Non Tender Extremities: Capillary Refill Less than 3 Seconds, - - RLE edema, redness, warmth, tenderness to palp Skin: No rashes, No breakdown Musculoskeletal: No Tenderness to Palpation of Joints or Extremities Neurological: Cranial nerves II-XII grossly intact Psych/Mental Status: Normal Affect, Appropriate, Alert and oriented to time, place, person, mood and affect Vital Signs Temp Pulse Resp BP Pulse Ox 98.9 F 99 18 120/61 95 02/03/18 08:20 02/03/18 12:02 02/03/18 08:20 02/03/18 08:20 02/03/18 08:20 Oxygen Delivery Method Room Air Weight: 96 lb 8.999 oz Body Mass Index (BMI) 17.1 Intake and Output for Last 24 Hours 02/01/18 02/02/18 02/03/18 23:59 23:59 23:59 Intake Total 2164 / 2164 1547 / 1547 495 / 495 Output Total 400 / 400 Balance 2164 / 2164 1147 / 1147 495 / 495 Microbiology Past 72 Hours 02/02/18 21:27 Urine Culture - Preliminary Urine, Clean Catch Culture exhibits no growth. 02/01/18 10:00 Urine Culture - Final Urine, Clean Catch Culture exhibits no growth. Laboratory Tests Past 24 Hrs 08/02/02/18 02/03/18 05:48 21:27 05:20 WBC RBC Hgb Hct MCV MCH MCHC RDW RDW Differential Plt Count MPV Immature Gran % (Auto) Neut % (Auto) Lymph % (Auto) [place] % (Auto) Eos % (Auto) Baso % (Auto) Absolute Neuts (auto) Absolute Lymphs (auto) Total Counted PT INR Sodium 141 Potassium 3.8 Chloride 108 H Carbon Dioxide 22.0 Anion Gap 11 BUN 11 Creatinine 0.63 Estim Creat Clear Calc 68.12 Est GFR (MDRD) Af Amer 124 Est GFR (MDRD) Non-Af 102 BUN/Creatinine Ratio 17.4 Glucose 93 Calcium 8.4 L Urine Color Yellow Urine Clarity Clear Urine pH 6.5 Ur Specific [place] 1.010 Urine Protein 30 H Urine Glucose (UA) Normal Urine Ketones Negative Urine Occult Blood 150 H Urine Nitrite Negative Urine Bilirubin Negative Urine Urobilinogen Normal Ur Leukocyte Esterase Negative OSBALDO Screen Negative JANUARY-1 Antibody Not Reportable SS-A/Ro IgG Antibody Not Reportable SS-B/La IgG Antibody Not Reportable Sm (Laura) Antibody Not Reportable TSA SCREENER Antibody Not Reportable Scl-70 Scleroderma Ab Not Reportable Double Strand DNA Ab Not Reportable Centromere B Antibody Not Reportable 02/03/18 02/03/18 05:20 05:20 WBC 7.7 RBC 3.57 L Hgb 11.0 L Hct 32.4 L MCV 90.8 MCH 30.8 MCHC 34.0 RDW 14.5 RDW Differential 48.3 H Plt Count 143 L MPV 10.8 Immature Gran % (Auto) 0.300 Neut % (Auto) 79.2 H Lymph % (Auto) 10.0 L [place] % (Auto) 9.4 Eos % (Auto) 1.0 Baso % (Auto) 0.1 Absolute Neuts (auto) 6.1 Absolute Lymphs (auto) 0.77 L Total Counted Not Reportable PT 21.1 H INR 1.8 Sodium Potassium Chloride Carbon Dioxide Anion Gap BUN Creatinine Estim Creat Clear Calc Est GFR (MDRD) Af Amer Est GFR (MDRD) Non-Af BUN/Creatinine Ratio Glucose Calcium Urine Color Urine Clarity Urine pH Ur Specific [place] Urine Protein Urine Glucose (UA) Urine Ketones Urine Occult Blood Urine Nitrite Urine Bilirubin Urine Urobilinogen Ur Leukocyte Esterase OSBALDO Screen JANUARY-1 Antibody SS-A/Ro IgG Antibody SS-B/La IgG Antibody Sm (Laura) Antibody TSA SCREENER Antibody Scl-70 Scleroderma Ab Double Strand DNA Ab Centromere B Antibody Medical Necessity - Tobacco Use Smoking Status: Never smoker Tobacco Use: Non-smoker Assessment/Plan All Active Problems (Last Updated 02/01/18 @ 11:42 by Raghu Rao MD) Sepsis (Acute) FRAN (acute kidney injury) (Acute) Cellulitis (Acute) Metabolic encephalopathy (Acute) 1. Acute sepsis 2/2 RLE cellulitis - suspect streptococcal -continue Ancef. Slowly improving. No fever or white count at this time. She has had cellulitis of this leg in the past, will look for significant improvement before planning to change to p.o. with discharge. blood and urine cxs negative. 2. Acute metabolic encephalopathy - per Neuro MRI small aneurysm is incidental and not clinically relevant. Change in mental status 2/2 infection. Overall improved. 3. FRAN 2/2 sepsis - resolved. 4. CMTC - congenital, chronic rashes, chronic proximal joint pain, rheumatoid panel pending. 5. Mild normocytic anemia - trend. 6. Thrombocytopenia - stable 7. 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 coumadin restarted 8. Acute otitis media-Ancef will cover for this appropriately. 9. Essential tremor - primidone 10. Hypokalemia - normal now. DVT ppx: warfarin therapeutic DC planning: pending pt further improvement. This patient was seen by Axel Harding PA-C under the supervision of Doctor Patton. <Sabi Patton - Last Filed: 02/03/18 17:30> - Physical Exam Vital Signs Temp Pulse Resp BP Pulse Ox 98.3 F 69 16 116/62 100 02/03/18 14:20 02/03/18 15:15 02/03/18 14:20 02/03/18 14:20 02/03/18 14:20 Oxygen Delivery Method Room Air Weight: 43.8 kg Body Mass Index (BMI) 17.1 Intake and Output for Last 24 Hours 02/01/18 02/02/18 02/03/18 23:59 23:59 23:59 Intake Total 2164 / 2164 1547 / 1547 495 / 495 Output Total 400 / 400 Balance 2164 / 2164 1147 / 1147 495 / 495 Microbiology Past 72 Hours 02/02/18 21:27 Urine Culture - Preliminary Urine, Clean Catch Culture exhibits no growth. 02/01/18 10:00 Urine Culture - Final Urine, Clean Catch Culture exhibits no growth. Laboratory Tests Past 24 Hrs 02/01/18 02/02/18 02/03/18 05:48 21:27 05:20 WBC RBC Hgb Hct MCV MCH MCHC RDW RDW Differential Plt Count MPV Immature Gran % (Auto) Neut % (Auto) Lymph % (Auto) [place] % (Auto) Eos % (Auto) Baso % (Auto) Absolute Neuts (auto) Absolute Lymphs (auto) Total Counted PT INR Sodium 141 Potassium 3.8 Chloride 108 H Carbon Dioxide 22.0 Anion Gap 11 BUN 11 Creatinine 0.63 Estim Creat Clear Calc 68.12 Est GFR (MDRD) Af Amer 124 Est GFR (MDRD) Non-Af 102 BUN/Creatinine Ratio 17.4 Glucose 93 Calcium 8.4 L Urine Color Yellow Urine Clarity Clear Urine pH 6.5 Ur Specific [place] 1.010 Urine Protein 30 H Urine Glucose (UA) Normal Urine Ketones Negative Urine Occult Blood 150 H Urine Nitrite Negative Urine Bilirubin Negative Urine Urobilinogen Normal Ur Leukocyte Esterase Negative OSBALDO Screen Negative JANUARY-1 Antibody Not Reportable SS-A/Ro IgG Antibody Not Reportable SS-B/La IgG Antibody Not Reportable Sm (Laura) Antibody Not Reportable TSA SCREENER Antibody Not Reportable Scl-70 Scleroderma Ab Not Reportable Double Strand DNA Ab Not Reportable Centromere B Antibody Not Reportable 02/03/18 02/03/18 05:20 05:20 WBC 7.7 RBC 3.57 L Hgb 11.0 L Hct 32.4 L MCV 90.8 MCH 30.8 MCHC 34.0 RDW 14.5 RDW Differential 48.3 H Plt Count 143 L MPV 10.8 Immature Gran % (Auto) 0.300 Neut % (Auto) 79.2 H Lymph % (Auto) 10.0 L [place] % (Auto) 9.4 Eos % (Auto) 1.0 Baso % (Auto) 0.1 Absolute Neuts (auto) 6.1 Absolute Lymphs (auto) 0.77 L Total Counted Not Reportable PT 21.1 H INR 1.8 Sodium Potassium Chloride Carbon Dioxide Anion Gap BUN Creatinine Estim Creat Clear Calc Est GFR (MDRD) Af Amer Est GFR (MDRD) Non-Af BUN/Creatinine Ratio Glucose Calcium Urine Color Urine Clarity Urine pH Ur Specific [place] Urine Protein Urine Glucose (UA) Urine Ketones Urine Occult Blood Urine Nitrite Urine Bilirubin Urine Urobilinogen Ur Leukocyte Esterase OSBALDO Screen JANUARY-1 Antibody SS-A/Ro IgG Antibody SS-B/La IgG Antibody Sm (Laura) Antibody TSA SCREENER Antibody Scl-70 Scleroderma Ab Double Strand DNA Ab Centromere B Antibody Assessment/Plan Patient was seen and examined. I agree with his interval history, physical exam and assessment and plan as documented by JOSH Anderson. Patient feels improved, still has left lower extremity swelling with differential warmth. On day 3 of cefazolin IV` Oral thrush on tongue is improving. Vitals are stable. Labs appear improved Meds reviewed Will continue on cefazolin IV Code Visit Inpatient E&M: 32154 Subs Hosp L2
[2018-02-04] VITALS (10 sets, daily range): BP systolic 129–145; BP diastolic 67–77; PULSE 82–101; RESP 16–18; TEMP 36.5–36.9; O2SAT 94–99
[2018-02-04] MEDS: Cefazolin 1 GM/50 ML BAG IV ×3 (05:00→21:54)
[2018-02-04] MEDS: NYSTATIN 500,000 UNIT/5 ML UDC 500000 UNIT PO ×4 (08:26→21:54)
[2018-02-04] MEDS: Primidone 50 MG Tablet PO ×2 (08:27→21:54)
[2018-02-04] MEDS: Aspirin 81 MG TAB.CHEW PO (08:27)
[2018-02-04] MEDS: Spironolactone 25 MG Tablet PO ×2 (08:27→14:25)
[2018-02-04] MEDS: Gabapentin 600 MG Tablet PO ×2 (08:27→21:54)
[2018-02-04] MEDS: Acetaminophen 325 MG Tablet 650 MG PO ×3 (08:43→22:01)
[2018-02-04 11:19] LABS: Phenobarbital,Serum 4 ug/mL (15-40); Primidone, Serum 3.3 ug/mL (5.0-12.0)
--- NOTE | 2018-02-04 12:48 | PCM.PROGNOTE ---
<Axle Harding - Last Filed: 02/04/18 12:48> Patient Problems: Active and Suspected Problems (Last Updated 02/01/18 @ 11:42 by Raghu Rao MD) Sepsis (Acute) FRAN (acute kidney injury) (Acute) Cellulitis (Acute) Metabolic encephalopathy (Acute) Subjective: Overall patient states she feels that she is slightly improving, feels the rash is slightly improved, but she still having significant pain with ambulation and she is worried about going home. She is also worried that her ankle does not seem improved her. No fevers or chills. - Physical Exam General: Alert, Oriented x3, Cooperative HEENT: Atraumatic, PERRLA, EOMI, Normocephalic Neck: Supple, No JVD, Negative Carotid Bruits Lungs: Clear to auscultation, Normal air movement Cardiovascular: Regular rate, No murmurs Abdomen: Bowel Sounds Present, Soft, Non Tender Extremities: No edema, Capillary Refill Less than 3 Seconds, - - Tender to palpation over the right erythematous areas. Swelling does seem mildly improved, erythema starting to slightly regress away from the borders. Still slightly swollen, erythema is localized more over the mid anterior lateral region where there may be an old wound. Skin: No rashes, No breakdown Musculoskeletal: No Tenderness to Palpation of Joints or Extremities Neurological: Cranial nerves II-XII grossly intact Psych/Mental Status: Normal Affect, Appropriate, Alert and oriented to time, place, person, mood and affect Vital Signs Temp Pulse Resp BP Pulse Ox 98.5 F 100 16 135/67 H 99 02/04/18 08:10 02/04/18 11:23 02/04/18 08:10 02/04/18 08:10 02/04/18 08:10 Oxygen Delivery Method Room Air Weight: 96 lb 8.999 oz Body Mass Index (BMI) 17.1 Intake and Output for Last 24 Hours 02/02/18 02/03/18 02/04/18 23:59 23:59 23:59 Intake Total 1547 / 1547 1133 / 1133 170 / 170 Output Total 400 / 400 Balance 1147 / 1147 1133 / 1133 170 / 170 Microbiology Past 72 Hours 02/02/18 21:27 Urine Culture - Preliminary Urine, Clean Catch Culture exhibits no growth. 02/01/18 10:00 Urine Culture - Final Urine, Clean Catch Culture exhibits no growth. Laboratory Tests Past 24 Hrs 02/01/18 12:05 Primidone 3.3 L Phenobarbital 4 L Medical Necessity - Tobacco Use Smoking Status: Never smoker Tobacco Use: Non-smoker Assessment/Plan All Active Problems (Last Updated 02/01/18 @ 11:42 by Raghu Rao MD) Sepsis (Acute) FRAN (acute kidney injury) (Acute) Cellulitis (Acute) Metabolic encephalopathy (Acute) 1. Acute sepsis 2/2 RLE cellulitis - suspect streptococcal -continue Ancef. Slowly improving. No fever or white count at this time. She has had cellulitis of this leg in the past, will look for significant improvement before planning to change to p.o. with discharge. blood and urine cxs negative. -She is making very slow progress will continue to monitor on Ancef ?1 more day. If no significant improvement tomorrow will consult infectious disease. 2. Acute metabolic encephalopathy -resolved. Per Neuro MRI small aneurysm is incidental and not clinically relevant. Change in mental status 2/2 infection. Overall improved. 3. FRAN 2/2 sepsis - resolved. 4. CMTC - congenital, chronic rashes, chronic proximal joint pain, rheumatoid panel pending. May complicate skin healing. 5. Mild normocytic anemia - trend. 6. Thrombocytopenia - stable 7. 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 coumadin restarted 8. Acute otitis media-Ancef will cover for this appropriately. 9. Essential tremor - primidone 10. Hypokalemia - normal now. DVT ppx: warfarin therapeutic DC planning: pending pt further improvement. This patient was seen by Axel Harding PA-C under the supervision of Doctor Patton. <PoojaDunreith - Last Filed: 02/04/18 16:14> - Physical Exam Vital Signs Temp Pulse Resp BP Pulse Ox 98.1 F 97 16 145/72 H 99 02/04/18 14:10 02/04/18 14:10 02/04/18 14:10 02/04/18 14:10 02/04/18 14:10 Oxygen Delivery Method Room Air Weight: 43.8 kg Body Mass Index (BMI) 17.1 Intake and Output for Last 24 Hours 02/02/18 02/03/18 02/04/18 23:59 23:59 23:59 Intake Total 1547 / 1547 1133 / 1133 1055 / 1055 Output Total 400 / 400 Balance 1147 / 1147 1133 / 1133 1055 / 1055 Microbiology Past 72 Hours 02/02/18 21:27 Urine Culture - Preliminary Urine, Clean Catch Culture exhibits no growth. 02/01/18 10:00 Urine Culture - Final Urine, Clean Catch Culture exhibits no growth. Laboratory Tests Past 24 Hrs 02/01/18 02/04/18 02/04/18 12:05 13:00 13:00 PT 20.9 H INR 1.8 Magnesium 1.8 TSH Primidone 3.3 L Phenobarbital 4 L 02/04/18 13:00 PT INR Magnesium TSH 1.39 Primidone Phenobarbital Assessment/Plan Patient was seen and examined. I agree with his interval history, physical exam and assessment and plan as documented by JOSH Anderson. Patient feels improved, still has left lower extremity swelling with differential warmth, very slow improvement. Has difficulty ambulating. Concerned about discharge as she lives alone On day 4 of cefazolin IV` Oral thrush on tongue is improving. Vitals are stable. Labs appear improved; INR is subtherapeutic - will give one time lovenox to cover Meds reviewed Will continue on cefazolin IV, if not improved, will get ID consult. Encouraged ambulation Code Visit Inpatient E&M: 11932 Subs Hosp L2
[2018-02-04 13:20] LABS: International Normalized Ratio 1.8; Prothrombin Time (Protime)PT. 20.9 SECONDS (11.7-14.9)
[2018-02-04 14:01] LABS: Magnesium 1.8 mg/dL (1.6-2.6)
[2018-02-04] MEDS: Enoxaparin 40 MG/0.4 ML Syringe SC (14:25)
[2018-02-04 14:51] LABS: Thyroid Stim Hormone (TSH) 1.39 uIU/mL (0.358-3.74)
[2018-02-05] VITALS (7 sets, daily range): BP systolic 123–143; BP diastolic 67–72; PULSE 79–124; RESP 18; TEMP 36.5–37.1; O2SAT 96–99
[2018-02-05] MEDS: Cefazolin 1 GM/50 ML BAG IV (05:02)
[2018-02-05] MEDS: Acetaminophen 325 MG Tablet 650 MG PO ×2 (05:10→15:35)
[2018-02-05 05:53] LABS: International Normalized Ratio 2.4; Prothrombin Time (Protime)PT. 26.3 SECONDS (11.7-14.9)
[2018-02-05] MEDS: Aspirin 81 MG TAB.CHEW PO (10:04)
[2018-02-05] MEDS: Primidone 50 MG Tablet PO (10:04)
[2018-02-05] MEDS: Gabapentin 600 MG Tablet PO (10:05)
[2018-02-05] MEDS: NYSTATIN 500,000 UNIT/5 ML UDC 500000 UNIT PO ×2 (10:54→15:34)
--- NOTE | 2018-02-05 11:54 | DCINST_ITS ---
- Discharge Diagnoses Current Active Problems: Current Active and Chronic Problems (Last Updated 02/01/18 @ 11:42 by Raghu Rao MD) Sepsis (Acute) FRAN (acute kidney injury) (Acute) Cellulitis (Acute) Metabolic encephalopathy (Acute) You will use the following diet at home:: No restrictions Your food should be the consistency of: Regular Your liquids should be the consistency of: Regular/Thin Discharge Activity: Return to Normal Activity, - - off work through 02/09, begin outpatient physical therapy tomorrow Allergies/Adverse Reactions: Allergies sulfamethoxazole [From Bactrim] Allergy (Verified 02/03/18 16:35) Hives trimethoprim [From Bactrim] Allergy (Verified 02/03/18 16:35) Hives Medications to take at Discharge Gabapentin [Neurontin] 600 mg PO BID 01/31/18 Primidone [Mysoline] 50 - 100 mg PO BID 01/31/18 Spironolactone 25 mg PO DAILY 01/31/18 Warfarin Sodium 15 mg PO DAILY 01/31/18 Doxycycline 100 mg PO BID #11 cap 02/05/18 Nystatin 500,000 unit PO 4X/DAY udc 02/05/18 The following prescriptions were given: Doxycycline 100 mg PO BID #11 cap Orders to be completed after discharge: Prothrombin Time w/INR Time Frame: 3 Days, Location: Laboratory Primary Care Physician: Diamond aSnchez MD [Primary Care Provider] - Please follow up with your Primary Care Physician in: 1 week Test Results: Test results from this visit will be discussed in further detail at your follow- up appointment, if applicable. Proposed Discharge Date: 02/05/18
--- NOTE | 2018-02-05 15:34 | PCM.DC.SUM ---
<Axel Harding - Last Filed: 02/05/18 15:34> Discharge Date and Diagnosis - Problem List Patient Problems: Active and Suspected Problems (Last Updated 02/01/18 @ 11:42 by Raghu Rao MD) Sepsis (Acute) FRAN (acute kidney injury) (Acute) Cellulitis (Acute) Metabolic encephalopathy (Acute) Date of Admission: 01/31/18 Date of Discharge: 02/05/18 - Primary Discharge Diagnosis Active and Suspected Problems (Last Updated 02/01/18 @ 11:42 by Raghu Rao MD) Sepsis (Acute) 2/2 Acute cellulitis RLE FRAN (acute kidney injury) (Acute) Acute metabolic encephalopathy secondary to above Acute otitis media See MTC Mild normocytic anemia Thrombocytopenia History of DVT Essential tremor Hypokalemia Hospital Course and Treatment Imaging Results: CT/Brain/Head without Contrast IMPRESSION: Questionable area of decreased attenuation in the insular cortex of the right temporal lobe as well as a decreased sulcal markings in the left cerebral hemisphere. MRI is recommended for further evaluation. Several punctate calcifications in the brainstem as described. RAD/Chest 1 View (Portable) IMPRESSION: Hyperinflation. No acute abnormality is seen. Echo: Interpretation Summary Normal LV size. Left ventricular systolic function is normal. The estimated ejection fraction is 55 %. No evidence for diastolic dysfunction. Mild (1+) eccentric mitral valve insufficiency. 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 MRI/MRA Neck without Contrast IMPRESSION: There is mild atherosclerotic plaque formation of the origin of the right and left internal carotid arteries with less than 50% cross sectional diameter stenosis. Consults: Neuro - Rao Operations: None Procedures: 2-D Echocardiogram Summary of Care Provided: Physical exam on day of discharge: General: Resting comfortably NAD Psych: A/Ox3 normal affect HEENT: PEARRLA AT NC Neck: Supple NT CV: RRR no m/t/r/g/h Resp: CTA Abd: [id number] Soft NT no guarding or rigidity Ext: DP2+= significant improvement in edema of the right lower extremity particularly around the ankle. Erythema persists particularly around small wound site, possibly some purulence under the skin. No drainage. Warmth has resolved. Erythema is receding away from the demarcations. Skin: W/D normal turgor Lymph/Heme: No active bleeding or adenopathy Neuro: CN2-12 intact Hospital course: The patient is a 57 year old F with a history of DVT, on warfarin, therapeutic INR, CMT C, chronic anemia, thrombocytopenia, essential tremor, hypokalemia, who presented to the emergency room with chief complaint of confusion and feeling ill for 2 days. She had a very erythematous, warm, swollen right lower extremity consistent with cellulitis, BMP suggesting acute kidney injury, with sepsis criteria met with a fever, leukocytosis, tachycardia. She was admitted to PCU. A CT of the brain was obtained and was concerning for a change in the right temporal lobe. A stroke workup was initiated with a neurology consultation. MRI, MRA were negative echocardiogram was unremarkable. There was an incidental finding of a 3 mm aneurysm which neurology felt was insignificant. Her change in mental status was attributed to acute metabolic encephalopathy secondary to her infection and FRAN. She was initially started on vancomycin, her rash was consistent with a streptococcal infection and her antibiotics were changed to Keflex. She had very slow improvement in her erythema, and swelling. She did feel significantly improved daily. There was a very small area that may have been an open wound at one point possibly secondary to a razor, that appeared to possibly have some pus underneath. For this reason for discharge she was changed to doxycycline. She completed 5 days of IV antibiotics while here and will have 5 more days for total of 10 days of therapy. Blood culture was negative, urine culture was negative. She had significant pain with ambulation and some weakness. She has not homebound and still very active at work, so outpatient physical therapy was advised for her. Also of note she had some persistent tachycardia especially with light exertion throughout her stay, and persistently but mildly elevated blood pressure. She was started on Lopressor. She will need to discuss these changes with her PCP. Her echo was unremarkable, her rhythm was normal sinus, her TSH was negative, and her magnesium was normal. She was discharged home in stable condition. This patient was seen by Axel Harding PA-C under the supervision of Doctor Justin. [] Discharge Diet: Low fat/ Low Cholesterol, 2000 mg Sodium Diet Discharge Activity: Return to Normal Activity, - - off work through 02/09, begin outpatient physical therapy tomorrow Home Medications: Medications to take at Discharge Gabapentin [Neurontin] 600 mg PO BID 01/31/18 Primidone [Mysoline] 50 - 100 mg PO BID 01/31/18 Spironolactone 25 mg PO DAILY 01/31/18 Warfarin Sodium 15 mg PO DAILY 01/31/18 Doxycycline 100 mg PO BID #11 cap 02/05/18 Metoprolol Tartrate 12.5 mg PO BID #30 tab 02/05/18 Nystatin 500,000 unit PO 4X/DAY udc 02/05/18 Following Prescrptions Were Given to Patient: Doxycycline 100 mg PO BID #11 cap Metoprolol Tartrate 12.5 mg PO BID #30 tab Primary Care Physician: Diamond Sanchez MD [Primary Care Provider] - Please follow up with your Primary Care Physician in: 1 week Disposition: Home Minutes spent on discharge:: 40 Patient Condition:: Stable Medical Necessity - Tobacco Use Smoking Status: Never smoker Tobacco Use: Non-smoker Meaningful Use Info Meaningful Use Diagnoses (Choose all that apply): None applicable <AmayakarlyYuli Robert - Last Filed: 02/05/18 16:42> Discharge Date and Diagnosis - Primary Discharge Diagnosis Active and Suspected Problems (Last Updated 02/01/18 @ 11:42 by Raghu Rao MD) Sepsis (Acute) FRAN (acute kidney injury) (Acute) Cellulitis (Acute) Metabolic encephalopathy (Acute) Hospital Course and Treatment Summary of Care Provided: Patient seen under my supervision by Axel Harding PA-C The patient is a 57 year old F with a history of DVT, on Coumadin, chronic anemia, thrombocytopenia, essential tremor and hypokalemia as well as cutaneous murmur to telangiectasia. She was admitted by the ED with a complaint of confusion and feeling ill for 2 days and she had a warm, swollen, erythematous right lower extremity consistent with cellulitis. She was admitted and managed for sepsis due to cellulitis and AK I. On account of confusion, she was also managed for acute metabolic encephalopathy and a CT of the brain and MRI of the brain done were negative. Echocardiogram was also unremarkable. Acuteness of metabolic encephalopathy was therefore thought to be due to the right lower extremity cellulitis and FRAN. She was started on vancomycin which was subsequently changed to Keflex. She had 5 days of IV antibiotics and right lower extremity swelling and redness 1 down significantly. Blood culture and urine cultures were negative. Patient remained stable and was discharged home on 02/05/2018 with a 5 day prescription for doxycycline p.o. 100 mg twice daily. Patient seen and examined prior to discharge. She was noted to be tachycardic the day before, with heart rate going up into the 130s-140s. EKG done just showed sinus tachycardia. An EKG was done today which showed sinus tachycardia with nonspecific ST changes. Echo was totally normal with normal EF and no evidence of hypo-akinesia. TSH was normal. Patient was therefore started on low-dose of Lopressor 12.5 mg twice daily to help control the heart rate and elevated blood pressure. She is to follow-up with her primary care doctor. TSH and magnesium as well as potassium also normal. Patient was seen and examined prior to discharge. She had no complaints and felt well. She denied any fever or chills, any cough or chest pain, shortness of breath, abdominal pain, any diarrhea vomiting. Review of systems otherwise negative. On examination Vitals: Vital Signs Height 5 ft 2.99 in Weight: 96 lb 8.999 oz Weight in Pounds 96.6 lbs Pulse Ox 99 Temperature 97.7 F Pulse Rate 124 Respiratory Rate 18 Blood Pressure 143/68 Blood Pressure Position Semi-Fowlers []General: Alert, Oriented x3, Cooperative HEENT: Atraumatic, PERRLA, EOMI, Normocephalic Neck: Supple, No JVD, Negative Carotid Bruits Lungs: Clear to auscultation, Normal air movement Cardiovascular: Regular rate, No murmurs Abdomen: Bowel Sounds Present, Soft, Non Tender Extremities: No edema, Capillary Refill Less than 3 Seconds, - -RLE mild redness, tenderness and differential warmth. Area of erythema demarcated, is contained within the demarcated outline., Small pocket of pus over lateral aspect of RLE. Skin: No rashes, No breakdown Musculoskeletal: No Tenderness to Palpation of Joints or Extremities Neurological: Cranial nerves II-XII grossly intact Psych/Mental Status: Normal Affect, Appropriate, Alert and oriented to time, place, person, mood and affect Plan as discussed above. She is follow-up with the primary care doctor in 1 week. She is complete a 5 day course of p.o. doxycycline 100 mg twice daily. Code Visit Inpatient E&M: 74661 Disch Hosp
== END 2018-02-05 17:10 | disposition home or self-care (01) | DRG 871 ==
LOC: ED 15:05 → PCU 15:39
PROVIDERS: Internal Medicine; Physician Assistant; Psychiatry & Neurology Neurology; Emergency Provider Emergency Medicine; Family Provider Internal Medicine; PCP Internal Medicine; Visit Provider Student in an Organized Health Care Education/Training Program
DX: A41.9 Sepsis, unspecified organism (principal); G93.41 Metabolic encephalopathy; L03.115 Cellulitis of right lower limb; N17.9 Acute kidney failure, unspecified; R64 Cachexia; Z68.1 Body mass index [BMI] 19.9 or less, adult; B37.0 Candidal stomatitis; E87.6 Hypokalemia; G25.0 Essential tremor; Z86.718 Personal history of other venous thrombosis and embolism; D69.6 Thrombocytopenia, unspecified; D64.9 Anemia, unspecified; H66.90 Otitis media, unspecified, unspecified ear; R21 Rash and other nonspecific skin eruption; Z79.01 Long term (current) use of anticoagulants; I10 Essential (primary) hypertension; Z85.3 Personal history of malignant neoplasm of breast; Z90.11 Acquired absence of right breast and nipple
CPT/HCPCS: 36415; 70450; 70544; 70547; 70551; 71045; 80048; 80053; 80061; 80184; 80188; 81001; 81002; 82962; 83605; 83735; 84443; 84484; 85025; 85610; 85652; 85730; 86038; 86225; 86235; 87040; 87086; 93005; 93306; 97110; 97116; 97162; 97166; 97530; 97802; 99285; J7030; J7040; J7050; A4216; J0696; J2405

== ENCOUNTER 2018-03-10 16:30 | Emergency (ER) | payer OTHER, SELFPAY ==
[2018-03-10 16:33] VITALS: BP 150/80; PULSE 86; RESP 18; TEMP 36.6; O2SAT 99; BMI 17.7
--- NOTE | 2018-03-10 16:49 | ED.VISSUMM ---
- ER Visit Summary Date of Service: 03/10/18 Chief Complaint: Cellulitis History of Present Illness: The patient is a 58 F with possible cellulitis of the right lower extremity. Patient was admitted 1 month ago with sepsis secondary to right lower extremity cellulitis. She been off oral antibiotics for the past 2 weeks. She did note slight increase in redness around the right ankle for the past couple of days and had a small area of open wound with clear drainage today. She has not had fever or chills. Patient is currently on Coumadin secondary to a history of blood clot. Physical Examination: Vital signs are unremarkable. She is afebrile. Patient sitting upright in bed no acute distress. She is nontoxic appearing. Head neck examination unremarkable. Heart is regular rate and rhythm. Lung sounds are clear. Abdomen is soft nontender. Right lower extremity examination was chronic venous skin changes to the lower portion of the right lower leg. There is mild erythema at the right ankle but not significant warmth. There is no significant edema. She is a small (approximate 1/2 cm diameter) wound with clear fluid drainage on the medial portion of the ankle. Strong distal pulses are noted. Test Results: CBC is unremarkable other than hemoglobin 11.3. Chemistry studies normal. INR is therapeutic at 2.1. Right ankle x-rays reveal no evidence of acute process. Calcifications of the lower leg soft tissue was noted. Blood cultures have been sent. Emergency Department Course and Treatment: Because the patient had just been admitted with sepsis from right lower extremity cellulitis, workup was pursued at this time. Test results are discussed with patient and family at bedside. At this time we will error on the side of caution and treat her with a course of doxycycline. I also recommended follow-up with the wound center. Patient was told that she will be contacted if her blood cultures are positive. If she worsens she is to return for repeat evaluation. Treatment Plan: [] Disposition: Discharge Impression: Early cellulitis right lower extremity This note was generated with [employer] dictation software. It may contain incorrect words, spelling, and punctuation that were not noted in review of the chart prior to signing ED Disposition - Plan for ED Patient: Disposition: Home or Assisted Living Chief Complaint: Cellulitis Instructions: ED Infec Skin Cellulitis Prescriptions: Doxycycline 100 mg PO BID #14 capsule Referrals: Diamond Sanchez MD [Primary Care Provider] - Additional Instructions: Follow-up with the Wound Center. [phone] for appointment.
[2018-03-10] MEDS: 0.9% Normal Saline 1,000 ML 100 ML IV (17:08)
--- NOTE | 2018-03-10 17:10 | RAD_ITS ---
STUDY: X-RAY - RIGHT ANKLE REASON FOR EXAM: Female, 58 years old. Infection, cellulitis. TECHNIQUE: 3 view(s) of the ankle. COMPARISON: None. FINDINGS: There is no fracture or dislocation. Joint spaces are well-maintained. There is no soft tissue swelling. Extensive calcifications are noted in the soft tissues of the lower leg. Primary differential considerations: Chronic venous insufficiency, less likely soft tissue hemangioma or dermatomyositis. RAD/Ankle min 3 Views IMPRESSION: 1. No acute process. 2. Diffuse calcifications of the lower leg, consider chronic venous insufficiency. Differential considerations are noted above. Electronically Signed: Chloé Shine MD at 18:04 EDT Tel , Service support ,
[2018-03-10 17:16] LABS: Absolute Lymphocyte Count 1.38 X10^3/ul (0.83-4.51); Absolute Neutrophil Count 2.7 X10^3/uL (2.0-7.7); Basophil# 0.04 X10^3/uL; Basophil% 0.9 % (0-1); Eosinophil# 0.13 X10^3/uL; Eosinophils% 2.8 % (0-5); Hematocrit 35.6 % (37-47); Hemoglobin 11.3 g/dl (12.0-15.0); Lymphocyte # 1.38 X10^3/ul (4.0); Lymphocyte % 30.1 % (19-41); Mean Corp Hgb Conc 31.7 g/gl (32-36); Mean Corpuscular Hgb 29.8 pg (27.0-32.0); Mean Corpuscular Volume 93.9 fL (81-99); Mean Platelet Vol. 9.9 fl (6.2-12.0); Monocyte% 6.5 % (0-10); Neutrophil # 2.74 X10^3/uL (2.7-7.7); Neutrophil % 59.7 % (47-70); POSITIVE COUNT NO; POSITIVE DIFFERENTIAL NO; POSITIVE MORPHOLOGY NO; Platelet Count 234 K/mm3 (150-450); RBC Distribution Width CV 14.9 % (11.6-14.6); RBC Distribution Width SD 50.4 fl (35.1-43.9); Red Blood Count 3.79 M/mm3 (4.2-5.4); White Blood Count 4.6 K/mm3 (4.4-11.0)
[2018-03-10 17:22] LABS: International Normalized Ratio 2.1; Prothrombin Time (Protime)PT. 23.6 SECONDS (11.7-14.9)
[2018-03-10 17:27] LABS: Anion Gap 8 (5-15); BUN 14 mg/dL (7-18); BUN/Creat Ratio 15.7 RATIO (10-20); Calcium,Total 9.4 mg/dL (8.5-10.1); Chloride 103 mmol/L (98-107); Creatinine, Serum 0.89 mg/dL (0.55-1.02); EST Glomerular Filtration Rate 69 mL/min (>60); Est Glom Filt Rate - Afr Amer 83 mL/min (>60); Estimated Creatinine Clearance 47.97 ml/min; Glucose 84 mg/dL (74-106); Potassium 3.9 mmol/L (3.5-5.1); Sodium Level 137 mmol/L (136-145)
--- NOTE | 2018-03-10 18:58 | ED.DEP ---
ED Disposition - Plan for ED Patient: Disposition: Home or Assisted Living Chief Complaint: Cellulitis Instructions: ED Infec Skin Cellulitis Prescriptions: Doxycycline 100 mg PO BID #14 capsule Referrals: Diamond Sanchez MD [Primary Care Provider] - Additional Instructions: Follow-up with the Wound Center. [phone] for appointment.
[2018-03-10] MEDS: Doxycycline 100 MG CAPSULE PO (19:09)
[2018-03-10 19:20] VITALS: BP 135/85; PULSE 78; RESP 15; O2SAT 97
--- NOTE | 2018-03-10 19:21 | ED.RN ---
PT GIVEN WRITTEN AND VERBAL DISCHARGE INSTRUCTIONS AND VERBALIZES UNDERSTANDING. PT EDUCATED ON HOME GOIGN PRESCRIPTIONS AND TO TAKE ALL OF HER ANTIBIOTIC. RIGHT LOWER LEG WRAPPED WITH TELFA AND GAUZE CLING WRAP. PT IV D/C SITE COVERED WITH GAUZE AND PAPER TAPE. PRESSURE APPLIED DUE TO PT BEING ANTICOAGULATED. PT DRESSES SELF AND AMBUALTES OUT OF DEPT VIA WALKER WITH FAMILY MEMBER.
== END 2018-03-10 19:23 | disposition home or self-care (01) ==
PROVIDERS: Emergency Provider Emergency Medicine; Family Provider Internal Medicine; PCP Internal Medicine
DX: L03.115 Cellulitis of right lower limb (principal); I10 Essential (primary) hypertension; Z86.19 Personal history of other infectious and parasitic diseases; Z86.718 Personal history of other venous thrombosis and embolism; Z79.01 Long term (current) use of anticoagulants; Z79.899 Other long term (current) drug therapy
CPT/HCPCS: 36415; 73610; 80048; 85025; 85610; 87040; 96360; 96361; 99284; J7030; A4216

== ENCOUNTER 2018-03-21 11:21 | Outpatient (RCR) | payer OTHER, SELFPAY | END 2018-04-11 23:59 | LOC: WC 11:21 | PROVIDERS: Family Provider Internal Medicine; PCP Internal Medicine; Visit Provider Internal Medicine | DX: Z09 Encounter for follow-up examination after completed treatment for conditions other than malignant neoplasm (principal) ==

== ENCOUNTER 2018-04-13 15:00 | Outpatient (RCR) | payer OTHER, SELFPAY ==
--- NOTE | 2018-02-20 15:11 | HP.PTEVAL ---
Patient's Visit Information GERI CALVILLO is a 58 year old F referred to Physical Therapy by JOSH Anderson with a diagnosis of CELLULITIS, FRAN AND SEPSIS.. Date of Evaluation: 02/20/18 Physical Therapist: Fior Gordon - Visit Plan Frequency: 2-3x /Week Duration: 4-6 Weeks Plan: POSTURE CORRECTION/STRENGTHENING, INSTRUCTION IN APPROPRIATE BODY MECHANICS AND ACTIVITY MODIFICATIONS. DLS STARTING WITH A NEUTRAL SPINE PROGRESSING ROM TOLERATED. PIPER LE ROM, STRETCHING AND STRENGTHENING. HEP INSTRUCTION. 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 UP AND DOWN ALL THE TIME. CURRENTLY OFF WORK WITH A TENTATIVE RTW DATE OF FEB 26 2018. FOLLOW UP SCHEDULED WITH DOCTOR THAT SAME DATE. Disability: NO. Present symptoms: RIGHT LEG, ANKLE AND FOOT PAIN. MAINLY THE ANKLE. NO NUMBNESS OR TINGLING. HAVING SWELLING AND SOME SEEPING. SOME GENERALIZED INTERMITTENT HIP PAIN. ALSO HAVING LEFT SHOULDER PAIN OFF AN ON. Present since: MONJan 2018 - CELLULITIS. JUL 2017 - BLOOD CLOT RIGHT LEG ALSO. VERY REMOTE HISTORY OF RIGHT LEG BACTERIAL INFECTION . Pain Scale: WORST 6/10, LEAST 2/10 ( RIGHT ANKLE). OTHER PAINS ARE MORE MILD. Currently: 2/10. Commenced as a result of: POSSIBLY A CUT UNTREATED THIS EPISODE. Symptoms at onset: RIGHT KNEE DOWN LEG TO FOOT. VERY SWOLLEN AND PAINFUL. Worse: STANDING, WALKING - ANYTHING WEIGHT BEARING ON THE RIGHT LE. Better: ELEVATING RIGHT LE. NON-WEIGHT BEARING. Disturbed sleep: YES. Previous history/Previous treatment: PATIENT REPORTS SHE HAD OT AND PT AT THE HOSPITAL THIS EPISODE. SHE STATES SHE DIDN'T THINK SHE COULD COME IN TO OUTPATIENT THERAPY BEFORE NOW. SHE STATES SHE TRIES TO MOVE HER FOOT SOME TO KEEP IT A LITTLE LIMBER BUT IT DOESN'T WORK REAL WELL. NOT SPECIFICALLY DOING ANY HOME EX'S. DISCHARGE FROM THE HOSPITAL January. Gait: HAS BEEN USING A FWW AND A ROLLATOR. Accidents: NO BUT PATIENT DOES REPORT SHE FELL IN THE BATHROOM MONDAY AND SHE HIT HER KNEE - IT DIDN'T EVEN BLEED. DOCTOR IS NOT AWARE. Unexplained weight loss: NO. Imaging: PATIENT REPORTS SHE HAS HAD MULTIPLE TESTS SINCE JAN 31 2018 AND NOTHING SIGNIFICANT SHOWED UP ON THE TESING BUT THEY DID SEE BRAIN CHANGES THAT ARE NOT NEW. PMH: SHE REPORTS SHE WAS BORN WITH A SKIN CONDITION RESULTING IN RIGHT UE BEING SMALLER THAN RIGHT AND RIGHT LE BEING THINNER THAN LEFT ALTHOUGH RIGHT LEG IS LONGER THAN LEFT. HTN, TREMORS LEFT HAND. HEART MURMER. H/O BREAST CANCER 1998 - TREATED WITH MASECTOMY AND CHEMOTHERAPY - NO RADIATION. Recent major surgery: MANY SURGERIES THROUGHOUT THE YEARS DUE TO BREAST IMPLANT ABOUT 5 YEARS AGO. NO CVA. NO HEART ATTACK. NOT DIABETIC. OTHER: PATIENT REPORTS SHE WAS ABLE TO WALK NORMALLY PRIOR TO JAN 31 2018. ALSO - MOTHER PASTED AWAY LAST WEEK. PATIENT REPORTS SHE ONLY WALKS WHEN SHE HAS TO BECAUSE WHEN SHE PUTS HER FOOT DOWN IT HURTS HER LEG. SHE SAW DR. HULL'S NURSE PRACTITIONER SHANIKA MURRY LAST MONDAY FOR MEDICATION PRESCRIPTION AND INSTRUCTION IN SELF WOUND CARE. PATIENT IS ON BLOOD THINNERS NOW AND HAS BEEN SINCE EARLIER THIS YEAR FOR BLOOD CLOT. - Objective THIS PT RECOMMENDED PATIENT CALL DR. HULL'S OFFICE TO LET THEM KNOW SHE FELL AND DISCUSS WHAT SHE IS TREATING HER SCRAPE FROM THE FALL WITH. PATIENT IS AGREEABLE. THIS PATIENT AMBULATES INDEP'LY INTO PT WITH ANTALGIC GAIT PATTERN WITH A FWW. SHE WALKS WITH INCREASED TRUNK FLEXION AND IS WEIGHT BEARING ON HER RIGHT FOREFOOT ONLY WITH A BENT RIGHT KNEE. SHE IS ABLE TO INDEP'LY TRANSFER FROM SIT TO STAND MAINLY BEARING WEIGHT ON HER LLE. HER LLE ROM AND STRENGTH IS WFL. SHE HAS RIGHT KNEE ROM IN SUPINE WITH A HEEL SLIDE FROM MINUS 46 DEG EXTENSION TO 124 DEG FLEXION. SHE ONLY HAS ABOUT 10 DEGREES OF AROM IN HER RIGHT ANKLE FROM 65 DEG PLANTAR FLEXION TO 55 DEGREES. HER PASSIVE RIGHT ANKLE ROM IS ALSO LIMITED TO ABOUT 12 DEGREES WITH PROM INTO DORSIFLEXION CAUSING INCREASED CALF PAIN. SHE HAS A BANDAID ON HER KNEE AND HER RIGHT LOWER LEG IS NOT VISIBLE DUE TO BANDAGING. THER ACT: INSTRUCTED PATIENT IN QUAD SETS IN SUPINE, DECREASED PROPPING OF RIGHT KNEE IN FLEXION, ACTIVE KNEE EXTENSION IN STANDING AND GENTLE TOWEL STRETCHING FOR PASSIVE RIGHT ANKLE DORSIFLEXION STRETCH. PATIENT COMMUNICATED AND DEMONSTRATED A GOOD UNDERSTANDING FOR FREQUENT GENTLE STRETCHING THROUGHOUT THE DAY - 10 TO 20 REPS EVERY ONE TO TWO HOURS AND TOLERATED EX WELL IN THE CLIINIC TODAY. - Goals Goal 1:: DECREASE C/O RIGHT LE PAIN Goal Time Frame: 4-6 Weeks Goal 2:: IMPROVE FUNCTIONAL ROM OF RIGHT LE Goal Time Frame: 4-6 Weeks Goal 3:: IMPROVE FUNCTIONAL STRENGTH OF RIGHT LE Goal Time Frame: 4-6 Weeks Goal 4:: INDEP AND SAFE GAIT ON ALL SURFACES WITH LEAST ASSISTIVE DEVICE. Goal Time Frame: 4-6 Weeks Goal 5:: INDEP HEP Goal Time Frame: 4-6 Weeks - Rehabilitation Potential Rehabilitation Potential: Fair - Anticipated Interventions Patient/Client Instruction: Educate patient on: Condition, Plan of Care, Risk Factors, Benefits of Fitness Program For the Purpose of:: To improve self management Therapeutic Exercise to Include: Strength training, Endurance training, Balance training, Body mechanics, Postural training, Flexibilty training, Gait and locomotor training, Passive ROM, Active ROM, Dynamic Lumbar Stabilization For the Purpose of:: To decrease pain, To increase ROM, To improve muscle performance and motor function, To improve ability to perform ADL's, To increase tolerance to activity/condition/position, To improve ability of physical actions for home/community/work/leisure, To improve gait and locomotor functions Functional Training to Include: Gait training For the Purpose of:: To increase tolerance to activity/condition/position, To improve ability of physical actions for home/community/work/leisure, To improve gait and locomotor functions Thank you for the opportunity to evaluate your patient. For Medicare and Medicare HMO plans, please review the plan of care and approve it. It will need to be FAXED BACK to us at [phone] for Medicare purposes. Please let me know if there are questions or concerns regarding this plan of care. Physician Signature: Date:
--- NOTE | 2018-02-20 15:28 | HP.OTEVAL ---
Patient's Visit Information GERI CALVILLO is a 58 year old F, referred to Occupational Therapy by JOSH Anderson, with a diagnosis of Cellulitis; sepsis. Date of Evaluation: 02/20/18 Occupational Therapist: Radha Cabrera - Subjective Subjective: Arrived and noted had infection in R lower leg and foot. Went into ER 01/31/18 and noted she stay Monday to Monday. She noted she has skin disorder, acuitis hugonda tangengial. 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 - Pain Right Foot 2 Pain Intensity Range: 2, 7 - ROM Shoulder: WFL Elbow: WFL Forearm: WFL Wrist: WFL MP: WFL PIP: WFL DIP: WFL - Strength Shoulder: flexion R 4/5, L 4+/5 Elbow: bicep R 4/5, L 4+/5 ; tricep R 4/5, L 4+/5 Wrist: R 4/5, L 4+/5 Suction Drum Drier Operator: R 38, L 51 Lateral Pinch: R 10, L 11 Tripod Pinch: R 13, L 10 Tip-to-Tip Pinch: R 5, L 9 Strength Comments: supraspinatus: R 4/5, L 4+/5. Unable to test infraspinatus due to limited balance at this time due to LE. Noted increased pain in R Ue due to over use and this has been baseline per Pt. report for many years . R sided weakness t/o rotator cuff. That is baseline per Pt. report. HEP provided. Call questions/concerns. - Edema Other: WNL - Sensation Sensation Comments: Denies numbness or tingling; WFL. - DASH-Disabilities of Arm, Shoulder& Hand DASH Sum: 66 - Rehabilitation General Assessment: Arrived 02/20/18 for OT evaluation. She is completing all ADL/IADls with need for seated breaks to manage LLE pain. She reports being baseline for all ADl/IADls and only limitation is R LE which will be treated by PT. Strength and ROM is WFL. She has previous R shoulder pain which is baseline. DASH score she based off balance and noted it is often roula balance issue than UE issue. HEP provided during evaluation for B UE and contact information provided for questions/concerns. She reports being fatigued but also noted that is a little worse but close to baseline. PT evaluation today for LE. She declines need for OT and notes she is at baseline for ADl/IADls and will not be picked up. She has been educated if she has change in status she is to call with questions/concerns and a new order will be needed for further evaluation. Rehabilitation Potential: Good - Anticipated Interventions Anticipated Interventions: Home Program Other Interventions: Will not be picking up at this time. She is completing all ADL/IADls at or near baseline and exhibits increased need for PT for gait related concerns. - Visit Plan General Plan: She will not be picked up at this time as close to baseline with all ADL/IADls despite balance limitation due to LE. She has increased weakness t/o LE and fx mobility deficits in which PT will be addressing. Limited insurance of 45 visits for combined OT/PT visits per year. She will likely need increased PT related visits due to cellulitis and if change in status occur can be reassessed. TEXT: Thank you for the opportunity to evaluate your patient. For Medicare and Medicare HMO plans, please review the plan of care and approve it. It will need to be FAXED BACK to us at [phone] for Medicare purposes. Please let me know if there are questions or concerns regarding this plan of care. Physician Signature: Date:
--- NOTE | 2018-03-16 11:26 | HP.PTREVAL ---
JOSH Anderson, It has been my pleasure to treat GERI CALVILLO over the last 10 visits for CELLULITIS, FRAN AND SEPSIS.. Please see the progress note below for an update on the physical therapy plan of care! Subjective: PATIENT REPORTS THEY ARE PRETTY SURE SHE DOESN'T HAVE SEPSIS AT THIS POINT BUT THEY ARE STILL MONITORING THE SAMPLE. PATIENT REPORTS SHE STILL DOESN'T FEEL LIKE SHE CAN DRIVE BECAUSE OF THE PAIN BUT SHE HAS BEEN RELEASED TO DRIVE BY THE GUEST SERVICES ASSOCIATE KHANH MURRY TO DRIVE AND SHE IS GOING TO TEST IT OUT THIS WEEK. PATIENT REPORTS SHE IS STILL PLANNING TO RETURN TO WORK MONDAY. PATIENT REPORTS SHE THINKS IF SHE GETS TOO TIRED AT WORK SHE WILL BE ABLE TO GO HOME. SHE IS ON RESTRICTION FROM PROLONGED STANDING. SHE REPORTS KHANH MURRY CNP DOES NOT SEE A REASON FOR HER TO NOT GO BACK TO WORK. PATIENT PLANS TO USE THE CANE AT WORK NEEDED. PATIENT REPORTS SHE WENT MOST OF THE DAY IN HER APPARTMENT WITHOUT THE CANE OR WALKER AND DID OK. APPOINTMENT WITH [facility] MONDAY. PATIENT REPORTS SHE DOES NOT FEEL COMFORTABLE STANDING IN THE SHOWER YET. PATIENT REPORTS SHE STILL HAS LEFT SHOULDER PAIN OFF AND ON AND THAT STARTED BEFORE THIS EPISODE WITH SEPSIS. Objective/Function: THIS PATIENT AMBULATES INDEP'LY INTO PT WITH A STRAIGHT CANE, GOOD CADANCE AND GOOD BALANCE AND SEQUENCING. SHE IS ALSO ABLE TO DEMONSTRRATE INDEP AND SAFE GAIT ON LEVEL SURFACES AND UP AND DOWN STEPS WITH ONE HR. WITHOUT THE CANE SHE WIDENS HER BASE OF SUPPORT BUT MAINTAINS GOOD BALANCE. SHE IS ABLE TO INDEP'LY TRANSFER FROM SIT TO STAND WITHOUT UE ASSIST. HER LLE ROM AND STRENGTH IS WFL. SHE HAS RIGHT KNEE ROM IN SUPINE WITH A HEEL SLIDE FROM FULL EXTENSION TO 132 DEG FLEXION. SHE IS NOW ABLE TO DORSIFLEX ACTIVELY TO NEUTRAL AND GET +2 DEGREES PASSIVELY. PASSIVE TESTING PROVOKES STRETCHING ONLY NOT PAIN IN THE CALF NOW. SHE HAS APPROX 50% DECREASED RIGHT ANKLE INVERSION COMPARED TO LEFT AND 10% DECREASED EVERSION. -40 DEG RIGHT AND -25 DEG LEFT KNEE EXT WITH SUPINE HAMSTRING ROM WITH HIP 90 DEG. LLE STRENGTH AND ROM IS WFL. RIGHT LE STRENGTH: HIP 4/5, KNEE EXT 4/5, KNEE FLEX 4/5, ANKLE DORSIFLEX 3+/5 IN AVAILABLE ROM - PROVOKED FLEETING MILD RIGHT LAT ANKLE PAIN, PLANTAR FLEX 4-/5 IN AVAILABLE RANGE. PATIENT IS NOW ABLE TO SINGLE LEG STANCE ON THE RIGHT LE X > 5 SEC WITHOUT C/O INCREASED PAIN. PATIENT CONTINUES TO HAVE EDEMA IN THE RIGHT LE BUT IT IS IMPROVING ESPECIALLY IN HER FOOT AND ANKLE. INSTRUCTED PATIENT TO ADDRESS LEFT UE PAIN WITH HER DOCTOR NEEDED AND AVOID INCREASING LEFT SHOULDER PAIN IN PT. Plan Plan: CONT PT DECREASING TO 2 TIMES A WEEK X 4 WEEKS WHILE PATIENT TRIES TO SUCCESSFULLY TRANSITION BACK TO WORK FOR POSTURE CORRECTION/STRENGTHENING, INSTRUCTION IN APPROPRIATE BODY MECHANICS AND ACTIVITY MODIFICATIONS. DLS STARTING WITH A NEUTRAL SPINE PIPER LE ROM, STRETCHING AND STRENGTHENING. FURTHER HEP INSTRUCTION. Goals Goal 1:: DECREASE C/O RIGHT LE PAIN Goal Time Frame: 4-6 Weeks Goal Progress: Progressing Goal 2:: IMPROVE FUNCTIONAL ROM OF RIGHT LE Goal Time Frame: 4-6 Weeks Goal Progress: Progressing Goal 3:: IMPROVE FUNCTIONAL STRENGTH OF RIGHT LE Goal Time Frame: 4-6 Weeks Goal Progress: Progressing Goal 4:: INDEP AND SAFE GAIT ON ALL SURFACES WITH LEAST ASSISTIVE DEVICE. Goal Time Frame: 4-6 Weeks Goal Progress: Progressing Goal 5:: INDEP HEP Goal Time Frame: 4-6 Weeks Goal Progress: Progressing Anticipated Interventions Patient/Client Instruction: Educate patient on: Condition, Plan of Care, Risk Factors, Benefits of Fitness Program For the Purpose of:: To improve self management Therapeutic Exercise to Include: Strength training, Endurance training, Balance training, Body mechanics, Postural training, Flexibilty training, Gait and locomotor training, Passive ROM, Active ROM, Dynamic Lumbar Stabilization For the Purpose of:: To decrease pain, To increase ROM, To improve muscle performance and motor function, To improve ability to perform ADL's, To increase tolerance to activity/condition/position, To improve ability of physical actions for home/community/work/leisure, To improve gait and locomotor functions Functional Training to Include: Gait training For the Purpose of:: To increase tolerance to activity/condition/position, To improve ability of physical actions for home/community/work/leisure, To improve gait and locomotor functions Please do not hesitate to contact me at [phone] by phone or if you have questions or concerns regarding this new plan of care! Sincerely, Fior Gordon
--- NOTE | 2018-04-13 15:56 | HP.PTDCSUM ---
HP - PT D/C Summary It has been my pleasure to treat GERI CALVILLO under orders from JOSH Anderson, for the diagnosis of CELLULITIS, FRAN AND SEPSIS. for a total of 18 visit(s). Discharge Date: Please see the following information for a summary of their discharge status. - Subjective Subjective: PATIENT REPORTS SHE IS NO LONGER USING THE CANE OR ANY ASSISTIVE DEVICES. PATIENT REPORTS THAT EARLIER THIS WEEK SHE HAD A LITTLE BIT OF RIGHT ANKLE PAIN BUT NO MORE THAN 1/10. PATIENT REPORTS SHE DOES STILL GET RIGHT HIP PAIN UP TO 2/10 WALKING AND LEFT NECK/SHOULDER PAIN BUT THIS IS SOMETHING SHE HAD BEFORE THE SEPSIS. ABLE TO STAND TO SHOWER NOW. DRIVING. PATIENT IS PLANNING TO JOIN [facility] HERE AT [employer] WITHIN THE NEXT WEEK TO CONTINUE EXERCISING INDEP'LY. - Pain R lateral ankle Pain Intensity (Out of 10): 0 R hip Pain Intensity (Out of 10): 0 - Overall Improvement % Improvement: 93 - Objective Objective/Function: ALL GOALS HAVE BEEN MET. UPON EXAM: RIGHT KNEE ROM IN SUPINE WITH A HEEL SLIDE FROM FULL EXTENSION TO 128 DEG FLEXION. SHE IS NOW ABLE TO DORSIFLEX ACTIVELY TO +2 DEG AND PASSIVELY I AM ONLY ABLE TO GET ANOTHER DEGREE OR TWO WITH PASSIVE TESTING PROVOKING STRETCHING ONLY AND NOT PAIN IN THE CALF. SHE HAS APPROX 40% DECREASED RIGHT ANKLE INVERSION COMPARED TO LEFT AND 10% DECREASED EVERSION. -35 DEG RIGHT AND -25 DEG LEFT KNEE EXT WITH SUPINE HAMSTRING ROM WITH HIP 90 DEG. LLE STRENGTH AND ROM IS WFL. RIGHT LE STRENGTH: HIP 4/5, KNEE EXT 4/5, KNEE FLEX 4/5, ANKLE DORSIFLEX 3+/5 IN AVAILABLE ROM. PLANTAR FLEX 4-/5 IN AVAILABLE RANGE. PATIENT IS NOW ABLE TO SINGLE LEG STANCE ON THE RIGHT LE X > 30 SEC WITHOUT C/O INCREASED PAIN. PATIENT CONTINUES TO HAVE EDEMA IN THE RIGHT LE AND THERE IS ACTUALLY MORE SWELLING IN HER KNEE TODAY WHICH MAY EXPLAIN THE DECREASE IN RIGHT KNEE FLEX ROM COMPAIRED TO LAST RE-CHECK. SHE REPORTS THIS SWELLING IS A CHRONIC PROBLEM STARTING IN CHILDHOOD. LEFT SCORE HAS IMPROVED FROM 39 TO 64 - Goals Goal 1:: DECREASE C/O RIGHT LE PAIN Goal Progress: Goal Met Goal 2:: IMPROVE FUNCTIONAL ROM OF RIGHT LE Goal Progress: Goal Met Goal 3:: IMPROVE FUNCTIONAL STRENGTH OF RIGHT LE Goal Progress: Goal Met Goal 4:: INDEP AND SAFE GAIT ON ALL SURFACES WITH LEAST ASSISTIVE DEVICE. Goal Progress: Goal Met Goal 5:: INDEP HEP Goal Progress: Goal Met - Plan Plan: D/C TO INDEP EX AT THIS TIME. PATIENT AGREEABLE. - D/C Information If there are questions or concerns regarding this patient's physical therapy, please feel free to call me at [phone]. Thank you for the referral of this patient. Sincerely, Fior Gordon
== END 2018-04-13 19:00 | disposition home or self-care (01) ==
LOC: PT 15:00
PROVIDERS: Family Provider Internal Medicine; PCP Internal Medicine; Visit Provider Physician Assistant
DX: L03.90 Cellulitis, unspecified (principal); S37.009D Unspecified injury of unspecified kidney, subsequent encounter; A41.9 Sepsis, unspecified organism
CPT/HCPCS: 97110; 97116; 97162; 97163; 97164; 97166; 97530

== ENCOUNTER → 2018-10-15 | Outpatient (CLI) | payer OTHER, SELFPAY ==
[2018-10-15 09:18] LABS: International Normalized Ratio 2.2; Prothrombin Time (Protime)PT. 24.8 SECONDS (11.7-14.9)
== END | disposition home or self-care (01) ==
LOC: LABSPEC 09:05
PROVIDERS: PCP Internal Medicine; Visit Provider Internal Medicine
DX: Z86.718 Personal history of other venous thrombosis and embolism (principal)
CPT/HCPCS: 85610

== ENCOUNTER → 2019-04-11 16:59 | Outpatient (CLI) | payer OTHER, SELFPAY ==
[2019-04-11 17:23] LABS: International Normalized Ratio 2.2; Prothrombin Time (Protime)PT. 24.7 SECONDS (11.7-14.9)
== END ==
PROVIDERS: Family Provider Internal Medicine; PCP Internal Medicine; Visit Provider Internal Medicine
DX: Z86.718 Personal history of other venous thrombosis and embolism (principal)
CPT/HCPCS: 85610

== ENCOUNTER 2020-08-21 12:07 | Outpatient (RCR) | payer OTHER, SELFPAY ==
[2020-08-21] MEDS: COVID-19 VACC, MRNA(PFIZER)/PF 30 MCG/0.3 ML SYRINGE IM (18:00)
[2020-09-11] MEDS: COVID-19 VACC, MRNA(PFIZER)/PF 30 MCG/0.3 ML SYRINGE IM (17:36)
== END 2020-11-17 23:59 ==
LOC: IMMUN 12:07
PROVIDERS: PCP Internal Medicine; Visit Provider Family Medicine
DX: Z23 Encounter for immunization (principal)
CPT/HCPCS: 0001A; 0002A; 91300

== ENCOUNTER 2020-09-29 09:55 | Emergency (ER) | payer OTHER, SELFPAY ==
[2020-09-29 09:56] VITALS: BP 143/81; PULSE 85; RESP 16; TEMP 36.4; O2SAT 100; BMI 18.2
--- NOTE | 2020-09-29 10:16 | EKG12_ITS ---
Test Reason : Blood Pressure : / mmHG Vent. Rate : 075 BPM Atrial Rate : 075 BPM P-R Int : 118 ms QRS Dur : 078 ms QT Int : 370 ms P-R-T Axes : 074 056 050 degrees QTc Int : 413 ms Normal sinus rhythm Nonspecific ST and T wave abnormality Abnormal ECG Confirmed by LUZ MARIA MARY, ZACK ([id number]), associate editor CRISTINO CHRISTIANSON ([id number]) on 10/02/2020 8:02:34 AM Referred By: YAMIL Confirmed By:KYUNG LOERA MD
--- NOTE | 2020-09-29 10:17 | ED.VIS.GEN ---
History of Present Illness Chief Complaint: Syncope Informant: Patient Onset: Today Narrative: Presents for syncopal episode while at work. States was not feeling well for couple days states had mild loose stools. No fevers cough chest pains nausea or vomiting. States urine frequency however states drinking more water. Denies history of diabetes. States had symptoms years ago. She states she is on gabapentin for pain. She states she did have mild increase in her back today and did have pain while standing when symptoms occurred. Currently denies back pain or any radicular symptoms. She is on warfarin for history of DVT last check this past Monday stating slightly elevated. Denies falls or head injuries. She was lowered to the ground. Prior similar symptoms: Yes Past Medical History - Allergies and Home Meds Allergies/Adverse Reactions: Allergies sulfamethoxazole [From Bactrim] Allergy (Verified 09/29/20 10:00) Hives trimethoprim [From Bactrim] Allergy (Verified 09/29/20 10:00) Hives Primary Care Physician: Diamond Sanchez MD [Primary Care Provider] - Past Medical History: - - Hypertension, back pain, DVT Surgical History: mastectomy, - - Skin graft from abdomen Smoking Status: Never smoker - Family History Maternal Family History: Reports: - - No breast cancer Review of Systems General: Denies: Chills, Fever, Sweats Eyes: Denies: Visual changes - bilaterally, Diplopia ENT: Denies: Rhinorrhea, Sore throat Cardiovascular: Denies: Chest pain, Palpitations Respiratory: Denies: Dyspnea, Cough, Dyspnea on exertion Gastrointestinal: Reports: Diarrhea. Denies: Abdominal pain, Nausea, Vomiting, Melena, Hematochezia Genitourinary: Reports: Frequency. Denies: Dysuria, Hematuria Musculoskeletal: Denies: Back pain, Extremity Pain Skin: Denies: Rash, Wounds Neurological: Denies: Headache, Weakness, Numbness Physical Exam Vital Signs/Narrative: Vital Signs Temp Pulse Resp BP Pulse Ox 09/29/20 09:56 97.6 F L 85 16 143/81 H 100 Inital Vital Signs reviewed: Yes General: Well nourished, Well developed, No Acute Distress Head: Normocephalic, Atraumatic Eyes: Perrl, EOMI ENT: No rhinorrhea, Dry mucous membranes Neck: Supple, Nontender Cardiovascular: Regular rate, Regular rhythm, No murmurs Respiratory: No distress, CTA bilaterally, Chest nontender Abdomen: Soft, Nontender, Nondistended, Normal bowel sounds Back: Nontender, Normal Inspection Extremities: Nontender, No edema Skin: Normal color, No rash Neurological: Alert, Oriented x3, Cranial nerves II-XII grossly intact, Normal Strength, Normal Sensation Psychological: Normal affect, Normal Mood Diagnostic/Tx/Re-eval Clinical Impression(s) from Imaging Studies Chest X-Ray 09/29/20 11:08 IMPRESSION: COPD. The lungs are clear. Electronically Signed: Félix Cordero MD at 11:24 EDT Tel , Service support , Abnormal Lab Results 09/29/20 09/29/20 09/29/20 09:46 09:46 09:46 WBC 4.5 RBC 4.68 Hgb 14.8 Hct 44.3 MCV 94.7 MCH 31.6 MCHC 33.4 RDW Std Deviation 46.5 H RDW Coeff of Pradeep 13.4 Plt Count 189 MPV 11.2 Immature Gran % (Auto) 0.400 Neut % (Auto) 72.1 H Lymph % (Auto) 20.4 Garvin % (Auto) 5.5 Eos % (Auto) 0.7 Baso % (Auto) 0.9 Absolute Neuts (auto) 3.3 Absolute Lymphs (auto) 0.92 Nucleated RBC % 0 PT 29.7 H INR 2.9 Sodium 135 L Potassium 4.1 Chloride 101 Carbon Dioxide 26.0 Anion Gap 8 BUN 15 Creatinine 1.08 H Estim Creat Clear Calc 39.61 Est GFR (MDRD) Af Amer 66 Est GFR (MDRD) Non-Af 55 L BUN/Creatinine Ratio 13.9 Glucose 109 H Calcium 9.7 Urine Color Urine Clarity Urine pH Ur Specific [place] Urine Protein Urine Glucose (UA) Urine Ketones Urine Occult Blood Urine Nitrite Urine Bilirubin Urine Urobilinogen Ur Leukocyte Esterase Urine RBC Urine WBC Ur Squamous Epith Cells Urine Bacteria Urine Mucus 09/29/20 12:25 WBC RBC Hgb Hct MCV MCH MCHC RDW Std Deviation RDW Coeff of Pradeep Plt Count MPV Immature Gran % (Auto) Neut % (Auto) Lymph % (Auto) Garvin % (Auto) Eos % (Auto) Baso % (Auto) Absolute Neuts (auto) Absolute Lymphs (auto) Nucleated RBC % PT INR Sodium Potassium Chloride Carbon Dioxide Anion Gap BUN Creatinine Estim Creat Clear Calc Est GFR (MDRD) Af Amer Est GFR (MDRD) Non-Af BUN/Creatinine Ratio Glucose Calcium Urine Color Yellow Urine Clarity Clear Urine pH 6.5 Ur Specific [place] 1.010 Urine Protein 15 H Urine Glucose (UA) Normal Urine Ketones 5 H Urine Occult Blood 25 H Urine Nitrite Negative Urine Bilirubin Negative Urine Urobilinogen Normal Ur Leukocyte Esterase Negative Urine RBC 0 SEEN Urine WBC 0-5 SEEN Ur Squamous Epith Cells 0 SEEN Urine Bacteria 0 SEEN Urine Mucus 0 SEEN - EKG Initial EKG Interpretation: Sinus Rhythm - Sinus rate of 75, no ST changes, no T wave changes. QTc 413. Artifacts noted. - Medical Decision Making Patient nontoxic no focal deficits. With her history concern for vasovagal syncope due to her back pain. EKG was normal. Labs were normal. Urine negative. With her loose stools yesterday Covid testing obtained also negative. She is able ambulate with no return of symptoms. INR therapeutic at 2.9. There is no falls or head injuries. Discharge with outpatient follow-up with strict return precautions. All questions were answered. ED Disposition - Plan for ED Patient: Disposition: Home or Assisted Living Diagnosis: Vasovagal syncope Instructions: ED Fainting, Vagal Reaction Referrals: Diamond Sanchez MD [Primary Care Provider] - 3-5 Days
[2020-09-29 10:57] LABS: Absolute Lymphocyte Count 0.92 X10^3/uL (0.83-4.51); Absolute Neutrophil Count 3.3 X10^3/uL (2.0-7.7); Basophil# 0.04 X10^3/uL; Basophil% 0.9 % (0-1); Eosinophil# 0.03 X10^3/uL; Eosinophils% 0.7 % (0-5); Hematocrit 44.3 % (37-47); Hemoglobin 14.8 g/dL (12.0-15.0); Lymphocyte # 0.92 X10^3/ul (0.83-4.51); Lymphocyte % 20.4 % (19-41); Mean Corp Hgb Conc 33.4 g/dL (32-36); Mean Corpuscular Hgb 31.6 pg (27.0-32.0); Mean Corpuscular Volume 94.7 fL (81-99); Mean Platelet Vol. 11.2 fl (6.2-12.0); Monocyte# 0.25 X10^3/uL; Monocyte% 5.5 % (0-10); NRBC Flagged by Analyzer 0 % (0-5); Neutrophil # 3.26 X10^3/uL (2.7-7.7); Neutrophil % 72.1 % (47-70); Platelet Count 189 K/mm3 (150-450); RBC Distribution Width CV 13.4 % (11.6-14.6); RBC Distribution Width SD 46.5 fl (35.1-43.9); Red Blood Count 4.68 M/mm3 (4.2-5.4); White Blood Count 4.5 K/mm3 (4.4-11.0)
[2020-09-29] MEDS: 0.9% Normal Saline 1,000 ML 1000 ML IV (10:57)
[2020-09-29 11:06] LABS: International Normalized Ratio 2.9; Prothrombin Time (Protime)PT. 29.7 SECONDS (11.7-14.9)
--- NOTE | 2020-09-29 11:08 | RAD_ITS ---
STUDY: X-RAY CHEST REASON FOR EXAM: Female, 60 years old. Fatigue and weakness TECHNIQUE: Single AP portable view of the chest. COMPARISON: 01/31/2018 FINDINGS: There are surgical clips overlying the right hemithorax. There is hyperinflation of the lungs consistent with chronic obstructive lung disease (COPD). The lungs are clear. There is no demonstrated pleural abnormality. Normal size heart. Normal mediastinum and abimael. Normal visualized pulmonary arteries. Normal visualized aortic arch and descending thoracic aorta. Normal visualized thoracic spine. Normal visualized ribs, clavicles, and shoulders. There is no demonstrated abnormality of the visualized soft tissue structures of the upper abdomen. RAD/Chest 1 View (Portable) IMPRESSION: COPD. The lungs are clear. Electronically Signed: Félix Cordero MD at 11:24 EDT Tel , Service support ,
[2020-09-29 11:11] LABS: Anion Gap 8 (5-15); BUN 15 mg/dL (7-18); BUN/Creat Ratio 13.9 RATIO (10-20); Calcium,Total 9.7 mg/dL (8.5-10.1); Chloride 101 mmol/L (98-107); Creatinine, Serum 1.08 mg/dL (0.55-1.02); EST Glomerular Filtration Rate 55 mL/min (>60); Est Glom Filt Rate - Afr Amer 66 mL/min (>60); Estimated Creatinine Clearance 39.61 ml/min; Glucose 109 mg/dL (74-106); Potassium 4.1 mmol/L (3.5-5.1); Sodium Level 135 mmol/L (136-145)
[2020-09-29 12:16] VITALS: BP 134/66; PULSE 82; RESP 18; O2SAT 100
[2020-09-29 12:43] LABS: Bacteria 0 SEEN /hpf (None Seen); Mucous, Urine 0 SEEN /hpf (<or=2+); Red Blood Cells-Urine 0 SEEN /hpf (0-5); Squamous Epithelial Cells - UA 0 SEEN /hpf (5-10)
[2020-09-29 12:44] LABS: Color, Urine Yellow (Yellow); Glucose, Dipstick Normal (Normal); Ketone-Dipstick 5 mg/dl (Negative); Leukocyte Esterase-Dipstick Negative /ul (Negative); Nitrite-Dipstick Negative (Negative); Occult Blood-Urine 25 /ul (Negative); Protein-Dipstick 15 mg/dl (Negative); Urine Bilirubin Dipstick Negative (Negative); Urine Clarity Clear (Clear); Urine Urobilinogen Normal (Normal); Urine pH 6.5 (5.0 - 8.0)
[2020-09-29 12:53] LABS: White Blood Cells 0-5 SEEN /hpf (0-5)
[2020-09-29 13:22] VITALS: BP 131/67; PULSE 85; RESP 16; O2SAT 98
[2020-09-29 14:01] VITALS: BP 117/64; PULSE 88; RESP 19; TEMP 36.6; O2SAT 100
== END 2020-09-29 14:04 | disposition home or self-care (01) ==
PROVIDERS: Emergency Provider Emergency Medicine; PCP Internal Medicine
DX: R55 Syncope and collapse (principal); R19.7 Diarrhea, unspecified; R35.0 Frequency of micturition; I10 Essential (primary) hypertension; J44.9 Chronic obstructive pulmonary disease, unspecified; Z86.718 Personal history of other venous thrombosis and embolism; Z79.01 Long term (current) use of anticoagulants; Z79.899 Other long term (current) drug therapy
CPT/HCPCS: 71045; 80048; 81001; 85025; 85610; 87426; 90471; 93005; 96360; 96361; 99285; J7030; A4216

== ENCOUNTER 2021-01-01 11:30 | Inpatient (IN) | payer OTHER, SELFPAY ==
[2021-01-01] VITALS (9 sets, daily range): BP systolic 101–140; BP diastolic 55–81; PULSE 77–100; RESP 12–18; TEMP 36.7–39.1; O2SAT 96–98; BMI 19.5; BMI 18.1
--- NOTE | 2021-01-01 11:40 | ED.RN ---
pt states she was in bed today because she thought it was monday, coworkers called sisters. Sisters stated she was weak when trying to get her to bathroom and pt said they thought she fainted and they called EMS.
--- NOTE | 2021-01-01 11:48 | RAD_ITS ---
STUDY: X-RAY CHEST REASON FOR EXAM: Female, 60 years old. Fever, ?Pneumonia TECHNIQUE: Single AP portable view of the chest. COMPARISON: Comparison is made with prior examination of 09/29/2020. FINDINGS: The patient is status post right mastectomy and right axillary node dissection. The lungs are clear and expanded. There is no demonstrated pleural abnormality. Normal size heart. Normal mediastinum and abimael. Normal visualized pulmonary arteries. Normal visualized aortic arch and descending thoracic aorta. Normal visualized thoracic spine. Normal visualized ribs, clavicles, and shoulders. There is no demonstrated abnormality of the visualized soft tissue structures of the upper abdomen. RAD/Chest 1 View (Portable) IMPRESSION: Normal x-ray examination of the chest. Electronically Signed: Stephen Jules MD at 12:46 EDT , Service support ,
--- NOTE | 2021-01-01 11:48 | CT_ITS ---
STUDY: CT BRAIN WITHOUT CONTRAST REASON FOR EXAM: Female, 60 years old. Fall, trauma on Coumadin RADIATION DOSAGE (If Supplied By Facility): CTDIvol = ( 38.43 ) mGy, DLP = ( 698.28 ) mGycm TECHNIQUE: Transaxial CT imaging of the brain was performed without administration of intravenous contrast material. Individualized dose optimization techniques were used for this CT. COMPARISON: Comparison is made with prior examination dated 02/01/2008. FINDINGS: Normal soft tissue structures. Normal calvarium. There is mild cerebral atrophy with widening of the extra-axial spaces and ventricular dilatation. Normal white matter tracts of the cerebral hemispheres. Normal basal ganglia and thalami. Punctate calcifications in the sidney and right cerebellar peduncle suggestive of possible vascular malformation. This is unchanged. Normal cerebellum. There is no intracranial hemorrhage. There are no findings of an acute ischemic infarction. Normal visualized paranasal sinuses. CT/Brain/Head without Contrast IMPRESSION: Chronic involutional changes of the brain. Electronically Signed: Stephen Jules MD at 14:32 EDT , Service support ,
--- NOTE | 2021-01-01 11:49 | EKG12_ITS ---
Test Reason : FALL Blood Pressure : / mmHG Vent. Rate : 099 BPM Atrial Rate : 099 BPM P-R Int : 118 ms QRS Dur : 076 ms QT Int : 344 ms P-R-T Axes : 068 052 -27 degrees QTc Int : 441 ms Sinus rhythm with occasional Premature ventricular complexes Nonspecific ST and T wave abnormality Abnormal ECG Confirmed by BRANDT MARY, BROWN ([id number]), editorial writer CRISTINO CHRISTIANSON ([id number]) on 01/05/2021 10:17:31 AM Referred By: CHALINO Confirmed By:BROWN CARLTON MD
--- NOTE | 2021-01-01 11:52 | EDS_ITS ---
HPI History of Present Illness Chief Complaint: Fall Informant: patient Narrative Narrative: Patient presents with generalized weakness. Patient states she did fall outside after tripping about a week ago. She hit the left side of her head but had no loss of consciousness. She was feeling fine ever since then. She went to work yesterday. She does recall being very cold and chilled last night. It sounds like she may have had rigors. She did not show up for work this morning. Work called her sisters who came over to her house. The patient was very weak and could not stand on her own so they called EMS. Patient states that when her sisters were there she thought this was Monday but she now knows it Monday. She really does not have a lot of complaints except that she feels very weak. She is denying coughing. She does feel dry and want something to drink. She has no abdominal pain. Denies any notable urinary symptoms. She has a contusion on her left thigh but denies any sore areas rashes or infections. She had Covid vaccinations a while ago. She has no known exposures to recent infections. Nothing is making her symptoms better or worse. History is mildly limited. Sometimes the patient has a little trouble with word finding. But I find no other neurologic deficit. Past history includes high blood pressure and prior DVT. Medications are reviewed. I am not 100% sure this is a complete list though. She is on Coumadin. Allergy to sulfa Prior surgeries include abdominal surgery that sounds like it was for possible cosmetic reasons or diastases. She denies intra-abdominal surgery though. [facility] Medical History (Updated 01/01/21 @ 15:20 by Analisa Geronimo) Breast cancer Hypertension Non-smoker Osteopenia Tremor VTE (venous thromboembolism) Home Medications gabapentin 300 mg PO BREAKFAST 01/31/18 [History Last Taken 01/29/18] primidone 100 mg PO TID 01/31/18 [History Last Taken 01/29/18] spironolactone 25 mg PO DAILY 01/31/18 [History Last Taken 01/29/18] warfarin 15 mg PO MOTUTHFRSA 01/31/18 [History Last Taken 01/31/18] calcium carbonate 500 mg PO DAILY 03/10/18 [History Last Taken Unknown] multivitamin with folic acid [Thera] 1 tab PO DAILY 03/10/18 [History Last Taken Unknown] omega 4-ugo-xbh-fish oil [Fish Oil] 500 mg PO DAILY 03/10/18 [History Last Taken Unknown] gabapentin 600 mg PO QHS 09/29/20 [History Last Taken Unknown] warfarin 20 mg PO SUWE 09/29/20 [History Last Taken Unknown] Allergy/AdvReac Type Severity Reaction Status Date / Time sulfamethoxazole Allergy Hives Verified 01/01/21 11:34 [From Bactrim] trimethoprim [From Bactrim] Allergy Hives Verified 01/01/21 11:34 Social History Smoking Status: Never smoker ROS ROS ED Review of Systems ROS Unobtainable: other Details: Occasional difficulty with word finding. Constitutional Constitutional ED: Reports chills, fever(s) and subjective Eyes Eyes: Denies blurry vision ENT ENT ED: Denies rhinorrhea or sore throat Cardiovascular Cardiovascular: Denies chest pain or palpitations Respiratory/Chest Respiratory/Chest: Denies cough, dyspnea, dyspnea on exertion or sputum Gastrointestinal Gastrointestinal: Denies abdominal pain, nausea or vomiting Genitourinary Genitourinary ED: Denies dysuria or hematuria Musculoskeletal Musculoskeletal: Denies arthralgias, myalgias or neck pain Integumentary Reports other Details: Slight abrasion to left scalp from her fall days to a week ago. Slight contusion left thigh. ; Denies abscess or rash Neurologic Neurologic: Denies headache(s), paresthesias or weakness Allergic/Immunologic Allergic/Immunologic ED: Denies urticaria EXAM Physical Exam Const Vital Signs: 01/01/21 11:31 01/01/21 11:35 01/01/21 12:59 Temperature 102.4 F H 100 F H Temperature Source Temporal Oral Pulse Rate 100 99 Respiratory Rate 18 15 Respiratory Effort Normal Non-Labored Respiratory Depth Normal Respiratory Pattern Normal Blood Pressure 122/81 H 113/56 L Blood Pressure Mean 94 75 Pulse Ox 97 96 Oxygen Delivery Method Room Air Room Air 01/01/21 13:00 01/01/21 14:16 Temperature 100 F H 99.6 F H Temperature Source Oral Temporal Pulse Rate 99 92 Respiratory Rate 15 12 Respiratory Effort Respiratory Depth Respiratory Pattern Blood Pressure 113/56 L 101/80 Blood Pressure Mean 75 87 Pulse Ox 96 97 Oxygen Delivery Method Room Air Room Air Constitutional Narrative: Patient is awake and alert. She looks dry. She is very responsive. She is thin. No labored breathing. General Appearance ED: NAD JOSSELINE MANJARREZ Narrative: Patient has a very small abrasion on the left upper forehead area. No significant contusion. Mucous membranes are quite dry. Eyes PERRL Eyes Narrative: Pupils are about 2 mm and equal. They are reactive. No notable photophobia. General Eye ED: Negative for scleral icterus Neck supple General: Negative for tenderness Chest Wall inspection of chest normal Resp normal respiratory effort and clear to auscultation bilaterally Auscultation: Negative for rales, rhonchi or wheezes Cardio regular rhythm Rate: tachycardic and other Other Details: Borderline tachycardic rate at about 100. GI normal to inspection, nondistended, normoactive bowel sounds and non-tender GI Narrative: Abdomen shows well-healed scar across the base and lower vertical. Benign exam. Palpation: soft Back/Spine no CVA tenderness Extremity Extremity Narrative: Left leg is slightly larger than the right. They are not tender. No sign of cellulitis. Color is also slightly different. Patient states that both of these bindings are normal and have been there ever since her DVT. Neuro oriented x3 Neuro Narrative: Patient is alert. 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 No focal deficit in terms of weakness or numbness. However she occasionally has trouble organizing her thoughts and finding the right word to explain things. Sensorium / Orientation: alert Psych mental status grossly normal Skin no rashes or lesions noted Skin Narrative: Skin is warm but I see no rash. She does have a slight contusion on the left proximal lateral thigh. But there is no tenderness. MDM MDM MDM Narrative Medical decision making narrative: Despite the patient's symptoms and significant weakness, her work-up is not showing any acute process. She does have a slight white count that could support the diagnosis of infection. However we are not seeing signs of infection on her x-ray or urine. There is no clinical signs of infection. INR is therapeutic at 2.8 her last is normal. I talked with her sister. Her sister help with this patient off the toilet ross use she is just too weak to stand. Patient feels a little better but she still feels too weak. She lives alone at home. I cannot send her home when she is not able to get up and move and stand safely on her own. I have hospitalist on page. Blood cultures and urine cultures were sent off. Patient did have a scratch from her cat recently but she has a single red abrasion on the anterior portion of her right knee but no sign of cellulitis or proximal lymphadenopathy. With the patient's heart rate, temperature, white count and suspected infection clinically she does meet sepsis criteria. Lab Data Attestation: I reviewed the patient's lab results. Labs: Laboratory Results - last 24 hr 01/01/21 01/01/21 01/01/21 11:40 11:40 11:40 WBC 12.2 H RBC 3.96 L Hgb 12.7 Hct 37.6 MCV 94.9 MCH 32.1 H MCHC 33.8 RDW Std Deviation 47.1 H RDW Coeff of Pradeep 13.6 Plt Count 162 MPV 12.0 Immature Gran % (Auto) 0.400 Neut % (Auto) 86.7 H Lymph % (Auto) 7.3 L [place] % (Auto) 5.1 Eos % (Auto) 0.1 Baso % (Auto) 0.4 Absolute Neuts (auto) 10.6 H Absolute Lymphs (auto) 0.89 Nucleated RBC % 0 PT 24.4 H INR 2.3 Sodium 140 Potassium 3.6 Chloride 106 Carbon Dioxide 24.0 Anion Gap 10 BUN 18 Creatinine 1.10 H Estim Creat Clear Calc 41.56 Est GFR (MDRD) Af Amer 65 Est GFR (MDRD) Non-Af 54 L BUN/Creatinine Ratio 16.4 Glucose 131 H Lactic Acid Calcium 9.0 Total Bilirubin 0.60 AST 133 H ALT 80 H Alkaline Phosphatase 112 Troponin I High Sens 10.5 Total Protein 6.7 Albumin 3.5 Globulin 3.2 Albumin/Globulin Ratio 1.1 Urine Color Urine Clarity Urine pH Ur Specific [place] Urine Protein Urine Glucose (UA) Urine Ketones Urine Occult Blood Urine Nitrite Urine Bilirubin Urine Urobilinogen Ur Leukocyte Esterase Urine RBC Urine WBC Ur Squamous Epith Cells Urine Bacteria Urine Mucus 01/01/21 01/01/21 12:00 12:55 WBC RBC Hgb Hct MCV MCH MCHC RDW Std Deviation RDW Coeff of Pradeep Plt Count MPV Immature Gran % (Auto) Neut % (Auto) Lymph % (Auto) [place] % (Auto) Eos % (Auto) Baso % (Auto) Absolute Neuts (auto) Absolute Lymphs (auto) Nucleated RBC % PT INR Sodium Potassium Chloride Carbon Dioxide Anion Gap BUN Creatinine Estim Creat Clear Calc Est GFR (MDRD) Af Amer Est GFR (MDRD) Non-Af BUN/Creatinine Ratio Glucose Lactic Acid 1.5 Calcium Total Bilirubin AST ALT Alkaline Phosphatase Troponin I High Sens Total Protein Albumin Globulin Albumin/Globulin Ratio Urine Color Yellow Urine Clarity Clear Urine pH 8.0 Ur Specific [place] 1.015 Urine Protein 100 H Urine Glucose (UA) Normal Urine Ketones Negative Urine Occult Blood 50 H Urine Nitrite Negative Urine Bilirubin Negative Urine Urobilinogen Normal Ur Leukocyte Esterase Negative Urine RBC 0 SEEN Urine WBC 0-5 SEEN Ur Squamous Epith Cells 0-5 SEEN Urine Bacteria 0 SEEN Urine Mucus 0 SEEN Radiography Diagnostic Testing: Radiology Impression Brain CT 01/01/21 11:48 IMPRESSION: Chronic involutional changes of the brain. Electronically Signed: Stephen Jules MD at 14:32 EDT , Service support , Chest X-Ray 01/01/21 11:48 IMPRESSION: Normal x-ray examination of the chest. Electronically Signed: Stephen Jules MD at 12:46 EDT , Service support , Discharge Plan Dx/Rx/DC Orders Clinical Impression: Sepsis, Fever, Unable to ambulate Disposition Disposition: Acute Care [facility]
[2021-01-01 12:12] LABS: Absolute Lymphocyte Count 0.89 X10^3/uL (0.83-4.51); Absolute Neutrophil Count 10.6 X10^3/uL (2.0-7.7); Basophil# 0.05 X10^3/uL; Basophil% 0.4 % (0-1); Eosinophil# 0.01 X10^3/uL; Eosinophils% 0.1 % (0-5); Hematocrit 37.6 % (37-47); Hemoglobin 12.7 g/dL (12.0-15.0); Lymphocyte # 0.89 X10^3/ul (0.83-4.51); Lymphocyte % 7.3 % (19-41); Mean Corp Hgb Conc 33.8 g/dL (32-36); Mean Corpuscular Hgb 32.1 pg (27.0-32.0); Mean Corpuscular Volume 94.9 fL (81-99); Monocyte# 0.62 X10^3/uL; Monocyte% 5.1 % (0-10); NRBC Flagged by Analyzer 0 % (0-5); Neutrophil # 10.57 X10^3/uL (2.7-7.7); Neutrophil % 86.7 % (47-70); Platelet Count 162 K/mm3 (150-450); RBC Distribution Width CV 13.6 % (11.6-14.6); RBC Distribution Width SD 47.1 fl (35.1-43.9); Red Blood Count 3.96 M/mm3 (4.2-5.4); White Blood Count 12.2 K/mm3 (4.4-11.0)
[2021-01-01] MEDS: Acetaminophen 325 MG Tablet 650 MG PO ×2 (12:20→20:03)
[2021-01-01] MEDS: 0.9% Normal Saline 1,000 ML 1000 ML IV (12:20)
[2021-01-01 12:29] LABS: International Normalized Ratio 2.3; Prothrombin Time (Protime)PT. 24.4 SECONDS (11.7-14.9)
[2021-01-01 12:39] LABS: ALB/GLOB Ratio 1.1 RATIO (0.9-2.4); AST(SGOT) 133 U/L (15-37); Alanine Aminotransfer ALT/SGPT 80 U/L (13-56); Albumin, Serum 3.5 g/dL (3.2-5.0); Alkaline Phosphatase 112 U/L (45-117); Anion Gap 10 (5-15); BUN 18 mg/dL (7-18); BUN/Creat Ratio 16.4 RATIO (10-20); Chloride 106 mmol/L (98-107); EST Glomerular Filtration Rate 54 mL/min (>60); Est Glom Filt Rate - Afr Amer 65 mL/min (>60); Estimated Creatinine Clearance 41.56 ml/min; Globulin 3.2 g/dL (2.2-4.2); Glucose 131 mg/dL (74-106); Potassium 3.6 mmol/L (3.5-5.1); Protein, Total 6.7 g/dL (6.4-8.2); Sodium Level 140 mmol/L (136-145); Troponin-I HS 10.5 pg/mL (3.0-53.7)
[2021-01-01 12:45] LABS: Lactic Acid 1.5 mmol/L (0.4-1.9)
[2021-01-01 13:00] LABS: Bacteria 0 SEEN /hpf (None Seen); Mucous, Urine 0 SEEN /hpf (<or=2+); Red Blood Cells-Urine 0 SEEN /hpf (0-5)
[2021-01-01] MEDS: Ceftriaxone 1 GM/50 ML BAG IV (13:03)
[2021-01-01 13:05] LABS: Color, Urine Yellow (Yellow); Glucose, Dipstick Normal (Normal); Ketone-Dipstick Negative (Negative); Leukocyte Esterase-Dipstick Negative /ul (Negative); Nitrite-Dipstick Negative (Negative); Occult Blood-Urine 50 /ul (Negative); Protein-Dipstick 100 mg/dl (Negative); Specific Gravity, Urine 1.015 (1.002-1.030); Urine Bilirubin Dipstick Negative (Negative); Urine Clarity Clear (Clear); Urine Urobilinogen Normal (Normal)
[2021-01-01 13:18] LABS: Squamous Epithelial Cells - UA 0-5 SEEN /hpf (5-10); White Blood Cells 0-5 SEEN /hpf (0-5)
--- NOTE | 2021-01-01 13:29 | ED.RN ---
sister and pt report chronic genetic condition- skin appears mottled on right side of body and chest. swelling to lips.
--- NOTE | 2021-01-01 16:03 | MRI_ITS ---
STUDY: MRI BRAIN WITHOUT CONTRAST REASON FOR EXAM: Female, 60 years old. AMS/ syncope/slurred speech TECHNIQUE: Standardized multiplanar fat and water weighted pulse sequences were obtained. COMPARISON: CT of the brain 01/01/2021 MRI of the brain 01/31/2018 FINDINGS: Mild atrophy and periventricular white matter ischemic changes without mass effect or restricted diffusion.. Old lacunar infarct involving the body of the left caudate nucleus Normal thalami. There is no extra-axial fluid accumulation. Normal flow voids within the major intracranial circulation suggesting patency by spin echo criteria. Normal sella turcica, pituitary gland, infundibular stalk, optic chiasm and hypothalamus. Normal tectal plate and pineal gland. Normal midbrain, sidney and medulla. Normal cerebellum. Normal basal cisterns. Normal bilateral temporal bones. Normal bilateral internal auditory canals. Postsurgical changes of left orbit.. Minor mucosal thickening of the bilateral maxillary ethmoid and sphenoid sinuses. Normal calvarium and skull base. Normal visualized soft tissue structures. Normal visualized upper cervical spine. No significant change since prior exam MRI/Brain without Contrast IMPRESSION: Mild atrophy and periventricular white matter ischemic changes without evidence for acute infarct.. Old lacunar infarct involving the body of the left caudate nucleus Electronically Signed: Morris Ojeda MD at 21:43 EDT , Service support ,
--- NOTE | 2021-01-01 16:04 | PCM.HP.STD ---
HPI - General General Date of Admission: 01/01/21 HPI Narrative GERI CALVILLO, is a 60 F with history of hypertension breast cancer in remission, VTE came to ER for fever, increased weakness and fall about 3 days ago. Patient had fall when she tripped over a rug and hit her forehead about 3 days ago and at that time she did not had loss of consciousness. Yesterday evening she felt ill with generalized weakness. She could not go to work in the morning and therefore her workplace called her to check. Her sister present in the room says she also passed out in the bathroom for about 5 seconds but did not fall or hit her head. She denies nausea, vomiting but has headache. Denies cough or shortness of breath, abdominal pain, new lower intact symptoms including dysuria. No change in bowel movement. As per her sister she is on her baseline mental status and speech which is sluggish with some stuttering and slurring. No focal weakness or sensory loss. She will was last admitted in January 2018 for sepsis secondary to right lower extremity, FRAN with acute metabolic encephalopathy. During that admission, work-up for stroke was negative. 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 She also had ER visit in September [address] head does not show any acute intracranial abnormality. Chest x-ray no acute change. Basic labs shows mild leukocytosis mainly neutrophilia and INR in therapeutic range as patient is on warfarin for DVT of right leg about 6 months ago [facility] Medical History Breast cancer Hypertension Non-smoker Osteopenia Tremor VTE (venous thromboembolism) Home Medications gabapentin 300 mg PO BID 01/31/18 [History Last Taken 12/31/20] primidone 100 mg PO TID 01/31/18 [History Last Taken 12/31/20] spironolactone 25 mg PO DAILY 01/31/18 [History Last Taken 12/31/20] warfarin 15 mg PO MOTUTHFRSA 01/31/18 [History Last Taken 12/31/20] calcium carbonate 500 mg PO DAILY 03/10/18 [History Last Taken 12/31/20] multivitamin with folic acid [Thera] 1 tab PO DAILY 03/10/18 [History Last Taken 12/31/20] omega 1-wsl-wve-fish oil [Fish Oil] 500 mg PO DAILY 03/10/18 [History Last Taken 12/31/20] fluticasone propionate 2 spray INTRANASAL DAILY 01/01/21 [History Last Taken Unknown] warfarin 20 mg PO SUWE 01/01/21 [History Last Taken 12/30/20] Allergy/AdvReac Type Severity Reaction Status Date / Time sulfamethoxazole Allergy Hives Verified 01/01/21 11:34 [From Bactrim] trimethoprim [From Bactrim] Allergy Hives Verified 01/01/21 11:34 Social History Smoking Status: Never smoker ROS ROS Narrative Constitutional: Reports fatigue and weakness. Mild sick looking. HEENT: Oral mucosa dry. Reports systems reviewed and no addt'l complaints, except as documented Respiratory/Chest: Denies shortness of breath with exertion Gastrointestinal: Denies coffee ground emesis, hematemesis or vomiting Genitourinary: Denies burning urination. No increased frequency or urgency. Musculoskeletal: Does not report joint pain and limited range of motion Neurologic: Denies seizure-like activity skin: No ulcer. Extremities: Generalized reddish discoloration face and upper body, chronic Endocrinology: Reports systems reviewed and no addt'l complaints, except as documented Hematologic/Lymphatic: Reports systems reviewed and no addt'l complaints, except as documented Rest 12 ROS are negative except as mentioned in HPI Vital Signs Vital Signs Vital Signs: 01/01/21 11:31 01/01/21 11:35 01/01/21 12:59 Temperature 102.4 F H 100 F H Temperature Source Temporal Oral Pulse Rate 100 99 Respiratory Rate 18 15 Respiratory Effort Normal Non-Labored Respiratory Depth Normal Respiratory Pattern Normal Blood Pressure 122/81 H 113/56 L Blood Pressure Mean 94 75 Pulse Ox 97 96 Oxygen Delivery Method Room Air Room Air 01/01/21 13:00 01/01/21 14:16 01/01/21 15:39 Temperature 100 F H 99.6 F H 99.2 F H Temperature Source Oral Temporal Temporal Pulse Rate 99 92 90 Respiratory Rate 15 12 16 Respiratory Effort Respiratory Depth Respiratory Pattern Blood Pressure 113/56 L 101/80 111/60 Blood Pressure Mean 75 87 77 Pulse Ox 96 97 97 Oxygen Delivery Method Room Air Room Air Room Air Weight Weight: 106 lb 11.26 oz Body Mass Index (BMI) 19.5 Physical Exam Narrative Physical exam General: Alert, Oriented x3, Cooperative HEENT: Atraumatic, PERRLA, EOMI, Normocephalic Oral: No Gingival or Mucosal Lesions/ Ulcerations Neck: Supple, No JVD, Negative Carotid Bruits Lungs: Air entry equal in bilateral lung bases. No crepitation/rhonchi Cardiovascular: Regular rate, Regular Rhythm, Normal S1, Normal S2, No murmurs Abdomen: Bowel Sounds Present, Soft, Non Tender, Non-Distended. Surgical scar dolly in abdomen, donor area for Mammoplasty. : No renal angle tenderness. No suprapubic tenderness. Extremities: Mild pedal edema, Capillary Refill Less than 3 Seconds Skin: No rashes, No breakdown Musculoskeletal: Mild swelling of the right leg, more than the left leg. No Tenderness to Palpation of Joints or Extremities Neurological: Cranial nerves II-XII grossly intact, Deep Tendon Reflexes 2+/4. Meningeal signs negative. Babinski signs negative. Muscle strength 5/5 at major joints Psych/Mental Status: Normal Affect, Appropriate. Results Lab / Micro Data Result Diagrams: 01/01/21 11:40 01/01/21 11:40 Labs: Laboratory Results - last 24 hr 01/01/21 11:40: WBC 12.2 H, RBC 3.96 L, Hgb 12.7, Hct 37.6, MCV 94.9, MCH 32.1 H, MCHC 33.8, RDW Std Deviation 47.1 H, RDW Coeff of Pradeep 13.6, Plt Count 162, MPV 12.0, Immature Gran % (Auto) 0.400, Neut % (Auto) 86.7 H, Lymph % (Auto) 7.3 L, [place] % (Auto) 5.1, Eos % (Auto) 0.1, Baso % (Auto) 0.4, Absolute Neuts (auto) 10.6 H, Absolute Lymphs (auto) 0.89, Nucleated RBC % 0 01/01/21 11:40: Sodium 140, Potassium 3.6, Chloride 106, Carbon Dioxide 24.0, Anion Gap 10, BUN 18, Creatinine 1.10 H, Estim Creat Clear Calc 41.56, Est GFR (MDRD) Af Amer 65, Est GFR (MDRD) Non-Af 54 L, BUN/Creatinine Ratio 16.4, Glucose 131 H, Calcium 9.0, Total Bilirubin 0.60, AST 133 H, ALT 80 H, Alkaline Phosphatase 112, Troponin I High Sens 10.5, Total Protein 6.7, Albumin 3.5, Globulin 3.2, Albumin/Globulin Ratio 1.1 01/01/21 11:40: PT 24.4 H, INR 2.3 01/01/21 12:00: Lactic Acid 1.5 01/01/21 12:55: Urine Color Yellow, Urine Clarity Clear, Urine pH 8.0, Ur Specific [place] 1.015, Urine Protein 100 H, Urine Glucose (UA) Normal, Urine Ketones Negative, Urine Occult Blood 50 H, Urine Nitrite Negative, Urine Bilirubin Negative, Urine Urobilinogen Normal, Ur Leukocyte Esterase Negative, Urine RBC 0 SEEN, Urine WBC 0-5 SEEN, Ur Squamous Epith Cells 0-5 SEEN, Urine Bacteria 0 SEEN, Urine Mucus 0 SEEN Micro: Microbiology 01/01/21 12:50 Mucosa - Nose SARS-CoV-2 Antigen (Rapid) - Final Radiology Impression Brain CT 01/01/21 11:48 IMPRESSION: Chronic involutional changes of the brain. Electronically Signed: Stephen Jules MD at 14:32 EDT , Service support , Chest X-Ray 01/01/21 11:48 IMPRESSION: Normal x-ray examination of the chest. Electronically Signed: Stephen Jules MD at 12:46 EDT , Service support , Assessment & Plan Assessment/Plan (1) Fever: (2) Syncope: PLAN: This 60-year-old female is being admitted for work-up for fever, generalized weakness and syncope 1. Fever of unclear source (SIRS, tachycardia, leukocytosis and fever): Patient is being admitted in PCU. Normal lactic acid. Patient is started on Rocephin. I discussed with ID Dr. Conner and agree with starting empirically on IV Rocephin and Zithromax. Chest x-ray normal. UA negative. Respiratory panel, PCR for HSV, CMV and panel for EBV ordered. Transaminases elevated AST 133, ALT 80. There is no convincing symptoms and signs of meningitis. MRI brain without contrast ordered. 2. 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 2 HS?troponins orders. She had echo in January 2018 for stroke work-up and EF 55% with mild eccentric MR. 3. History of breast cancer in remission status breast reconstruction 4 recent DVT on warfarin: INR is therapeutic. Continue home dose and monitor INR daily 5. Essential tremor Charges/Coding Visit Charges Inpatient E&M: 28052 Init Hosp L3
[2021-01-01 16:05] LABS: Magnesium 1.9 mg/dL (1.6-2.6)
[2021-01-01 17:49] LABS: Troponin-I HS 9.3 pg/mL (3.0-53.7)
[2021-01-01 19:32] LABS: Troponin-I HS 9.3 pg/mL (3.0-53.7)
[2021-01-01] MEDS: Vancomycin IV 1,000 MG/200 ML BAG 200 MG IV (20:00)
[2021-01-01] MEDS: Ondansetron 4 MG/2 ML Vial IV (20:08)
--- NOTE | 2021-01-01 23:05 | PCM.RX.CS ---
Consult Pharmacy has been consulted to manage selected antiobiotic: Vancomycin Type of Consult: New start Suspected Infection: Other Prior Doses of Antibiotics Received/Current Regimen: Medications Vancomycin HCl (Vancomycin) 1,000 mg in 200 mls @ 200 mls/hr IV Q24H AV Discontinued Medications Vancomycin HCl (Vancomycin) 1,000 mg in 200 mls @ 200 mls/hr IV X1 ONE Stop: 01/01/21 17:59 Last Admin: 01/01/21 21:00 Dose: Infused Labs: Sodium 140 mmol/L (136-145) 01/01/21 11:40 Potassium 3.6 mmol/L (3.5-5.1) 01/01/21 11:40 Chloride 106 mmol/L (98-107) 01/01/21 11:40 Carbon Dioxide 24.0 mmol/L (21.0-32.0) 01/01/21 11:40 Anion Gap 10 (5-15) 01/01/21 11:40 BUN 18 mg/dL (7-18) 01/01/21 11:40 Creatinine 1.10 mg/dL (0.55-1.02) H 01/01/21 11:40 Est GFR (MDRD) Af Amer 65 mL/min (>60) 01/01/21 11:40 Est GFR (MDRD) Non-Af 54 mL/min (>60) L 01/01/21 11:40 BUN/Creatinine Ratio 16.4 RATIO (10-20) 01/01/21 11:40 Glucose 131 mg/dL (74-106) H 01/01/21 11:40 Microbiology: Microbiology 01/01/21 17:25 Mucosa - Nose Respiratory Panel (PCR) - Final 01/01/21 12:50 Mucosa - Nose SARS-CoV-2 Antigen (Rapid) - Final Weight used for dosin.9 kg Estimated Creatinine Clearance: 42 Goal Trough: 15-20 mcg/mL Pharmacy Plan for Drug Dosing: Pharmacy Service will continue to monitor and adjust dosing as required. Follow-Up Labs: Trough Vancomycin Labs to be done on [date and time ordered]: 01/03/21 @1930
[2021-01-02] VITALS (7 sets, daily range): BP systolic 103–123; BP diastolic 51–74; PULSE 77–95; RESP 12–18; TEMP 36.7–36.9; O2SAT 97–98
[2021-01-02] MEDS: 0.9% Normal Saline 1,000 ML 150 ML IV (03:59)
[2021-01-02 07:14] LABS: Absolute Lymphocyte Count 0.72 X10^3/uL (0.83-4.51); Basophil# 0.02 X10^3/uL; Basophil% 0.2 % (0-1); Eosinophil# 0.02 X10^3/uL; Eosinophils% 0.2 % (0-5); Hematocrit 31.4 % (37-47); Hemoglobin 10.4 g/dL (12.0-15.0); Lymphocyte # 0.72 X10^3/ul (0.83-4.51); Lymphocyte % 8.6 % (19-41); Mean Corp Hgb Conc 33.1 g/dL (32-36); Mean Corpuscular Hgb 31.4 pg (27.0-32.0); Mean Corpuscular Volume 94.9 fL (81-99); Mean Platelet Vol. 11.4 fl (6.2-12.0); Monocyte# 0.54 X10^3/uL; Monocyte% 6.5 % (0-10); NRBC Flagged by Analyzer 0 % (0-5); Neutrophil # 7.02 X10^3/uL (2.7-7.7); Platelet Count 119 K/mm3 (150-450); RBC Distribution Width CV 13.8 % (11.6-14.6); RBC Distribution Width SD 47.8 fl (35.1-43.9); Red Blood Count 3.31 M/mm3 (4.2-5.4); White Blood Count 8.4 K/mm3 (4.4-11.0)
[2021-01-02] MEDS: Acetaminophen 325 MG Tablet 650 MG PO (07:43)
[2021-01-02] MEDS: Multivitamins,Ther W-Minerals Tablet 1 TABLET PO (07:44)
[2021-01-02] MEDS: Primidone 50 MG Tablet 100 MG PO ×2 (07:44→11:27)
[2021-01-02] MEDS: Calcium (Elemental) 500 MG Tablet PO (07:44)
--- NOTE | 2021-01-02 08:00 | TELEMED_ITS ---
[facility] has confirmed receipt of a request for visit. This document confirms receipt of the order initiating the consult. To find the results of the consultation, please view the patient's reports for the scanned Telemed Consult.
[2021-01-02] MEDS: 0.9% Saline Lock 10 ML Syringe IV (08:07)
[2021-01-02] MEDS: Ondansetron 4 MG/2 ML Vial IV (08:07)
[2021-01-02 08:12] LABS: ALB/GLOB Ratio 0.9 RATIO (0.9-2.4); AST(SGOT) 63 U/L (15-37); Alanine Aminotransfer ALT/SGPT 59 U/L (13-56); Albumin, Serum 2.8 g/dL (3.2-5.0); Alkaline Phosphatase 81 U/L (45-117); Anion Gap 7 (5-15); BUN 12 mg/dL (7-18); Chloride 111 mmol/L (98-107); Creatinine, Serum 0.71 mg/dL (0.55-1.02); EST Glomerular Filtration Rate 89 mL/min (>60); Est Glom Filt Rate - Afr Amer 108 mL/min (>60); Estimated Creatinine Clearance 58.26 ml/min; Glucose 98 mg/dL (74-106); Potassium 3.6 mmol/L (3.5-5.1); Protein, Total 5.8 g/dL (6.4-8.2); Sodium Level 139 mmol/L (136-145)
--- NOTE | 2021-01-02 08:28 | PCM.RX.CS ---
Consult Pharmacy has been consulted to manage selected antiobiotic: Vancomycin Type of Consult: Follow-up Labs: Sodium 139 mmol/L (136-145) 01/02/21 07:00 Potassium 3.6 mmol/L (3.5-5.1) 01/02/21 07:00 Chloride 111 mmol/L (98-107) H 01/02/21 07:00 Carbon Dioxide 21.0 mmol/L (21.0-32.0) 01/02/21 07:00 Anion Gap 7 (5-15) 01/02/21 07:00 BUN 12 mg/dL (7-18) 01/02/21 07:00 Creatinine 0.71 mg/dL (0.55-1.02) 01/02/21 07:00 Est GFR (MDRD) Af Amer 108 mL/min (>60) 01/02/21 07:00 Est GFR (MDRD) Non-Af 89 mL/min (>60) 01/02/21 07:00 BUN/Creatinine Ratio 17.0 RATIO (10-20) 01/02/21 07:00 Glucose 98 mg/dL (74-106) 01/02/21 07:00 Microbiology: Microbiology 01/01/21 17:25 Mucosa - Nose Respiratory Panel (PCR) - Final 01/01/21 12:50 Mucosa - Nose SARS-CoV-2 Antigen (Rapid) - Final Goal Trough: 15-20 mcg/mL Pharmacy Plan for Drug Dosing: DAILY ASSESSMENT Current Vancomcyin Dose: 1000MG IV Q24H Number of Doses Received: 0 (1 INITIAL) Current Renal Function: 0.71 / 58ML/MIN Renal Function Trend: SIGNIFICANT IMPROVEMENT FROM YESTERDAY Lab/Micro: PENDING Any Change in Vanc Plan: Due to improved renal function, pt now qualifies for 500mg iv q12hr dosing. Will change dose and start new scheduled dosing this morning. Pending Level: 01/03/21 @1930 Pharmacy Service will continue to monitor and adjust dosing as required.
[2021-01-02] MEDS: Vancomycin IV 500 MG/100 ML BAG 100 MG IV (09:20)
[2021-01-02] MEDS: Fluticasone 0.05% 1 SPRAY NASAL.SRY 2 SPRAY NASAL (09:23)
[2021-01-02] MEDS: Spironolactone 25 MG Tablet PO (09:25)
[2021-01-02] MEDS: Gabapentin 300 MG Capsule PO (09:25)
--- NOTE | 2021-01-02 12:00 | CASEMGMT ---
MITCHELL RHODES Assessment: Face to Face with pt for initial transition planning/care coordination assessment. MITCHELL RHODES introduced self and role at [facility], pt voices understanding and consents to assessment. Pt is A/O x4 and answers all questions appropriately at this time. Pt lying in bed in no distress. Care providers, pharmacy, and demographics verified/updated. Admitting Dx: fever, gen weakness PCP: Laura Specialists: Pt denies having any specialists. [facility]erred [facility]acy: [facility] Insurance: [employer] Prescription Benefit: yes LW/HPOA: Pt denies having LW/DPOA LNOK:Kelly Kimball, sister Living Arrangements: Pt lives alone in a second story apartment with 15-16 steps to enter with rail. Pt states she was I in ADL's and denies concerns at home. Transportation: Pt drives self and denies concerns with transportation. DME/HHC/SNF: Pt has a cane at home but does not use. She denies hx of HHC or SNF stays. Pt states no concerns with going home at time of dc. Pt states no further concerns/needs. CM to follow. Advised pt to ask CM if any further question/concerns/needs arise, voices understanding. Pt Goal: Home Plan:Home
--- NOTE | 2021-01-02 14:04 | PCM.DC ---
Discharge Instructions Diet Discharge Diet: No restrictions Activity Discharge Activity: Return to Normal Activity and May Not Drive Weight Bearing Status: Weight bearing as tolerated Dressing / Incision Call your doctor if you observe: Fever of 101 or Higher, Numbness or Tingling, Inability to urinate, Shortness of breath, Dizziness, Fainting spells, Swelling in the ankles, Chest pain, Increased palpitations (irregular heartbeat) and Calf discomfort Follow Up Care Test Results: Test results from this visit will be discussed in further detail at your follow-up appointment, if applicable. Discharge Plan Admission Admit Date/Time: 01/01/21 15:20 Primary Reason for Your Visit: Fever and headache probably viral fever Attending Provider: Bird He Primary Care Provider: Diamond Sanchez Consulting Providers: Tyrell Conner Discharge Orders/Prescriptions Prescriptions: New atorvastatin 40 mg Tablet 40 mg PO QHS Qty: 30 RF: 0 gabapentin 300 mg Capsule 300 mg PO BID Qty: 0 RF: 0 Continued primidone 50 MG tablet 100 mg PO TID RF: 0 spironolactone 25 MG tablet 25 mg PO DAILY RF: 0 warfarin 5 MG tablet 15 mg PO MOTUTHFRSA RF: 0 calcium carbonate 500 MG tablet 500 mg PO DAILY RF: 0 Fish Oil 500 MG capsule,delayed release(DR/EC) 500 mg PO DAILY RF: 0 multivitamin with folic acid [Thera] 1 TABLET tablet 1 tab PO DAILY RF: 0 warfarin 5 mg tablet 20 mg PO SUWE RF: 0 fluticasone propionate 50 mcg/actuation spray,suspension 2 spray INTRANASAL DAILY RF: 0 Discontinued gabapentin 300 MG capsule 300 mg PO BID RF: 0 Referrals / Follow Up: Diamond Sanchez MD [Primary Care Provider] - Within 1 Week Saul Walker MD [STAFF PHYSICIAN] - Within 2 Weeks Disposition Disposition (needs filled in before D/C Order can be placed): Home, Self Care
--- NOTE | 2021-01-02 14:26 | PCM.DC.SUM ---
Providers Date of Admission: 01/01/21 Primary Care Physician: Dr. Diamond Sanchez MD Consultations 01/01/21 16:42 Consult: Infectious Disease Routine Consulting Provider: Tyrell Conner Reason for Consult: Fever of unclear source EMERGENT Consult: No MD Notified: Yes Date Notified: 01/01/21 Time Notified: 16:00 Method of Notification: Verbal Reason For Visit: FEVER GEN WEAKNESS Diagnosis Discharge Diagnosis (1) Fever: Status: Acute Code(s): R50.9 - Fever, unspecified (2) Syncope: Status: Acute Code(s): R55 - Syncope and collapse Medications at Discharge Home Medications primidone 100 mg PO TID 01/31/18 spironolactone 25 mg PO DAILY 01/31/18 warfarin 15 mg PO MOTUTHFRSA 01/31/18 Fish Oil 500 mg PO DAILY 03/10/18 calcium carbonate 500 mg PO DAILY 03/10/18 multivitamin with folic acid [Thera] 1 tab PO DAILY 03/10/18 fluticasone propionate 2 spray INTRANASAL DAILY 01/01/21 warfarin 20 mg PO SUWE 01/01/21 atorvastatin 40 mg PO QHS #30 tab 01/02/21 gabapentin 300 mg PO BID #0 cap 01/02/21 Hospital Course Summary of Care Provided Hospital Course: This 60-year-old female is being admitted for work-up for fever, generalized weakness and syncope 1. Fever of unclear source (SIRS, tachycardia, leukocytosis and fever) probably viral fever: Patient is being admitted in PCU. Normal lactic acid. Empirically patient was started on Rocephin and vancomycin which was discontinued after she did not had fever. I discussed with ID Dr. Conner today and agree with discontinuing antibiotics. Chest x-ray normal. UA negative. Urine culture showed no growth. Respiratory panel negative. Blood cultures x2 are pending. Virus panel for HSV, CMV and EBV are pending. Improvement in the transaminases. There is no no convincing symptoms and signs of meningitis. MRI brain without contrast was done which showed no acute infarct or bleed but old lacunar infarct involving the body of the left caudate nucleus. SOC neurologist consult was done. We agreed that patient does not need any further work-up as there is less clinical probability of seizure and patient's vague history of chronic headache aggravated during humid or rainy season. Patient is advised to take Tylenol for mild headache and Motrin 400 mg q. 8 hourly as needed for moderate to severe headache. Patient first MRI in 2018 was negative therefore might have subclinical stroke in between. Fasting profile reported normal, LDL 79, HDL 66 but with report of subclinical old lacunar infarct, patient agreed for taking atorvastatin. Prescription for atorvastatin given. Patient already on warfarin. Patient takes Neurontin, tapering down to 300 mg twice daily for headache. 2. Syncope, exact etiology unclear possible vasovagal/neurocardiogenic: desk monitor shows sinus rhythm. 2 HS?troponins negative. She had echo in January 2018 for stroke work-up and EF 55% with mild eccentric MR. Orthostatic blood pressure is normal x2. 3. History of breast cancer in remission status breast reconstruction 4 recent DVT on warfarin: INR is therapeutic. Continue home dose a 5. Essential tremor on primidone Discharge medication reconciliation done. Discharge follow-up instructions completed. Discharge process discussed with the patient and all questions were answered to patient's satisfaction. Follow-up with PCP and neurologist, Dr. NARAYANAN in 2 weeks. Patient was admitted as inpatient but was discharged because of sooner recovery than expected at time of admission. Total time spent, exact 35 minutes on discharge meds reconciliation, examination, coordination of care with nurses and ancillary staff, review of imaging and blood test and discussion with the patient on follow-up instructions Clinical Impression(s) from Imaging Studies Brain CT 01/01/21 11:48 IMPRESSION: Chronic involutional changes of the brain. Electronically Signed: Stephen Jules MD at 14:32 EDT , Service support , Chest X-Ray 01/01/21 11:48 IMPRESSION: Normal x-ray examination of the chest. Electronically Signed: Stephen Jules MD at 12:46 EDT , Service support , Brain MRI 01/01/21 16:03 IMPRESSION: Mild atrophy and periventricular white matter ischemic changes without evidence for acute infarct.. Old lacunar infarct involving the body of the left caudate nucleus Physical Exam Narrative Seen and examined. No fever after admission. Patient walked around the nursing station did not feel wobbly, distal cream but mild headache. Has chronic headache which aggravates more during humid/rainy weather. Physical exam General: Alert, Oriented x3, Cooperative HEENT: Atraumatic, PERRLA, EOMI, Normocephalic Oral: No Gingival or Mucosal Lesions/ Ulcerations Neck: Supple, No JVD, Negative Carotid Bruits Lungs: Air entry equal in bilateral lung bases. No crepitation/rhonchi Cardiovascular: Regular rate, Regular Rhythm, Normal S1, Normal S2, No murmurs Abdomen: Bowel Sounds Present, Soft, Non Tender, Non-Distended. Surgical scar dolly in abdomen, donor area for Mammoplasty. : No renal angle tenderness. No suprapubic tenderness. Extremities: Mild pedal edema, Capillary Refill Less than 3 Seconds Skin: No rashes, No breakdown Musculoskeletal: Mild swelling of the right leg, more than the left leg. No Tenderness to Palpation of Joints or Extremities Neurological: Cranial nerves II-XII grossly intact, Deep Tendon Reflexes 2+/4. Meningeal signs negative. Babinski signs negative. Muscle strength 5/5 at major joints Psych/Mental Status: Normal Affect, Appropriate. Weight / BMI Weight Weight: 96 lb 8.999 oz Body Mass Index (BMI) 18.1 ABG / Lab / Microbiology Data Result Diagrams: 01/02/21 07:00 01/02/21 07:00 Laboratory: Laboratory Results - last 24 hr 01/01/21 11:40: Magnesium 1.9 01/01/21 16:55: Troponin I High Sens 9.3 01/01/21 18:20: Troponin I High Sens 9.3 01/02/21 07:00: WBC 8.4, RBC 3.31 L, Hgb 10.4 L, Hct 31.4 L, MCV 94.9, MCH 31.4, MCHC 33.1, RDW Std Deviation 47.8 H, RDW Coeff of Pradeep 13.8, Plt Count 119 L, MPV 11.4, Immature Gran % (Auto) 0.500, Neut % (Auto) 84.0 H, Lymph % (Auto) 8.6 L, [place] % (Auto) 6.5, Eos % (Auto) 0.2, Baso % (Auto) 0.2, Absolute Neuts (auto) 7.0, Absolute Lymphs (auto) 0.72 L, Nucleated RBC % 0 01/02/21 07:00: Sodium 139, Potassium 3.6, Chloride 111 H, Carbon Dioxide 21.0, Anion Gap 7, BUN 12, Creatinine 0.71, Estim Creat Clear Calc 58.26, Est GFR (MDRD) Af Amer 108, Est GFR (MDRD) Non-Af 89, BUN/Creatinine Ratio 17.0, Glucose 98, Calcium 8.0 L, Total Bilirubin 0.50, AST 63 H, ALT 59 H, Alkaline Phosphatase 81, Total Protein 5.8 L, Albumin 2.8 L, Globulin 3.0, Albumin/Globulin Ratio 0.9, TSH 1.10 Microbiology: Microbiology 01/01/21 12:55 Urine, Catheterized Urine Culture - Preliminary Culture exhibits no growth. 01/01/21 17:25 Mucosa - Nose Respiratory Panel (PCR) - Final 01/01/21 12:50 Mucosa - Nose SARS-CoV-2 Antigen (Rapid) - Final Radiography Diagnostic Testing: Radiology Impression Brain CT 01/01/21 11:48 IMPRESSION: Chronic involutional changes of the brain. Electronically Signed: Stephen Jules MD at 14:32 EDT , Service support , Brain MRI 01/01/21 16:03 IMPRESSION: Mild atrophy and periventricular white matter ischemic changes without evidence for acute infarct.. Old lacunar infarct involving the body of the left caudate nucleus Electronically Signed: Morris Ojeda MD at 21:43 EDT , Service support , D/C Instructions Discharge Diet: No restrictions Weight Bearing Status: Weight bearing as tolerated Call your doctor if you observe: Fever of 101 or Higher, Numbness or Tingling, Inability to urinate, Shortness of breath, Dizziness, Fainting spells, Swelling in the ankles, Chest pain, Increased palpitations (irregular heartbeat) and Calf discomfort Meaningful Use Info Meaningful Use Diagnoses (Choose all that apply): None applicable Discharge Plan Admission Admit Date/Time: 01/01/21 15:20 Primary Reason for Your Visit: Fever and headache probably viral fever Attending Provider: Bird He Primary Care Provider: Diamond Sanchez Consulting Providers: Tyrell Conner Discharge Orders/Prescriptions Prescriptions: New atorvastatin 40 mg Tablet 40 mg PO QHS Qty: 30 RF: 0 gabapentin 300 mg Capsule 300 mg PO BID Qty: 0 RF: 0 Continued primidone 50 MG tablet 100 mg PO TID RF: 0 spironolactone 25 MG tablet 25 mg PO DAILY RF: 0 warfarin 5 MG tablet 15 mg PO MOTUTHFRSA RF: 0 calcium carbonate 500 MG tablet 500 mg PO DAILY RF: 0 Fish Oil 500 MG capsule,delayed release(DR/EC) 500 mg PO DAILY RF: 0 multivitamin with folic acid [Thera] 1 TABLET tablet 1 tab PO DAILY RF: 0 warfarin 5 mg tablet 20 mg PO SUWE RF: 0 fluticasone propionate 50 mcg/actuation spray,suspension 2 spray INTRANASAL DAILY RF: 0 Discontinued gabapentin 300 MG capsule 300 mg PO BID RF: 0 Referrals / Follow Up: Diamond Sanchez MD [Primary Care Provider] - Within 1 Week Saul Narayanan MD [STAFF PHYSICIAN] - Within 2 Weeks Disposition Disposition (needs filled in before D/C Order can be placed): Home, Self Care Charges/Coding Visit Charges Inpatient E&M: 60826 Disch Hosp
[2021-01-02 14:36] LABS: Cholesterol 163 mg/dL (200); High Density Lipoprotein 66 mg/dL; Triglycerides 92 mg/dL; Very Low Density Lipoprotein 18 mg/dL (5-40)
[2021-01-11 20:07] LABS: HSV 1 By PCR Negative (Negative)
[2021-01-11 21:02] LABS: CMV by PCR Negative (Negative); EBV Acute VCA IgM < 36.0 U/mL (0.0-35.9); EBV Nuclear Antigen IgG 76.9 U/mL (0.0-17.9); HSV 2 By PCR Negative (Negative)
== END 2021-01-02 15:57 | disposition home or self-care (01) | DRG 872 ==
LOC: ED 15:07 → PCU 15:31
PROVIDERS: Admitting Provider Internal Medicine; Emergency Provider Emergency Medicine; PCP Internal Medicine; Visit Provider Internal Medicine
DX: A41.9 Sepsis, unspecified organism (principal); R55 Syncope and collapse; G25.0 Essential tremor; S70.12XA Contusion of left thigh, initial encounter; W18.09XA Striking against other object with subsequent fall, initial encounter; Y93.9 Activity, unspecified; Y92.9 Unspecified place or not applicable; I10 Essential (primary) hypertension; M85.80 Other specified disorders of bone density and structure, unspecified site; Z85.3 Personal history of malignant neoplasm of breast; Z86.718 Personal history of other venous thrombosis and embolism; Z86.73 Personal history of transient ischemic attack (TIA), and cerebral infarction without residual deficits; Z79.01 Long term (current) use of anticoagulants; Z79.899 Other long term (current) drug therapy
CPT/HCPCS: 36415; 70450; 70551; 71045; 80053; 80061; 81001; 83605; 83735; 84443; 84484; 85025; 85610; 86664; 86665; 87040; 87086; 87426; 87496; 87529; 87633; 93005; 97162; 97166; 99285; J7030; A4216; J0696; J2405

== ENCOUNTER → 2021-04-21 16:39 | Outpatient (CLI) | payer OTHER, SELFPAY | PROVIDERS: PCP Internal Medicine; Visit Provider Family Medicine | DX: Z23 Encounter for immunization (principal) | CPT/HCPCS: 0004A; 91300 ==

== ENCOUNTER → 2021-04-30 | Outpatient (CLI) | payer OTHER, SELFPAY ==
[2021-04-30 10:39] LABS: Prothrombin Time (Protime)PT. 71.1 SECONDS (11.7-14.9)
[2021-04-30 10:43] LABS: International Normalized Ratio 8.7
== END | disposition home or self-care (01) ==
LOC: LABSPEC 10:19
PROVIDERS: PCP Internal Medicine; Visit Provider Clinical Nurse Specialist
DX: Z86.718 Personal history of other venous thrombosis and embolism (principal)
CPT/HCPCS: 85610

== ENCOUNTER → 2021-05-03 | Outpatient (CLI) | payer OTHER, SELFPAY ==
[2021-05-03 10:36] LABS: International Normalized Ratio 1.4; Prothrombin Time (Protime)PT. 16.6 SECONDS (11.7-14.9)
== END | disposition home or self-care (01) ==
LOC: LABSPEC 10:03
PROVIDERS: PCP Internal Medicine; Referring Provider Internal Medicine; Visit Provider Internal Medicine
DX: Z86.718 Personal history of other venous thrombosis and embolism (principal)
CPT/HCPCS: 85610

== ENCOUNTER → 2021-05-07 | Outpatient (CLI) | payer OTHER, SELFPAY ==
[2021-05-07 10:20] LABS: International Normalized Ratio 2.2; Prothrombin Time (Protime)PT. 23.6 SECONDS (11.7-14.9)
== END | disposition home or self-care (01) ==
PROVIDERS: PCP Internal Medicine; Referring Provider Clinical Nurse Specialist; Visit Provider Clinical Nurse Specialist
DX: Z86.718 Personal history of other venous thrombosis and embolism (principal)
CPT/HCPCS: 85610

== ENCOUNTER 2021-08-23 18:00 | Outpatient (RCR) | payer OTHER, SELFPAY ==
--- NOTE | 2021-08-16 15:22 | HP.SP.AD ---
History - History Date of Eval: 08/02/21 Medical Diagnosis (from RX): CVA Date of Onset of Diagnosis: 2018 Previous speech therapy: No Other Relevant Medical History/Diagnoses/Surgery: Patient had an MRI in 2019 that showed slight CVA per patient. 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 Objective Cog/Ling/Com - Test Administered Jfyiefgyi-Vvnszkxptq-Stsdqqpjzwduo Assessment Administered: Yes Zjopgtkhh-Wluyfinyyi-Ysfduvyjdaumi Assessment: Cognitive ? Linguistic skills were evaluated using patient/family interview, skilled observation and informal evaluation through tasks completed by the patient. - Orientation Orientation: Person, Birthdate - Answer Yes/No Questions Simple: WNL Complex: WNL - Follows Commands Complex: WNL - Repetition Words: WNL - Naming Responsive naming: WNL Naming in categories: WNL - Conversational Tasks Conversational Tasks: WFL Comments: Patient presented today with minimal anomia. She reported that it often occurs at work and occasionally at home/ other environments. It was note noted during today's evaluation, however, she stated that she was not stressed in this situation. She reports a high level of frustration at these anomia episodes. - Executive Function Comments Comments: Patient stated that she may have mild recall deficits. Plan - Plan Plan: Speech therapy is warranted for short term therapy for anomia and evaluation of cognitive abilities for functional abilities in daily life. - Recommendations Treatment Warranted: Yes - Frequency Frequency: 1x/Week - Prognosis Prognosis: Good - Goals that are Established: Determination:: Goals will be added/modified as deemed necessary and appropriate. Therapy will be discontinued when results of re-evaluation indicate therapy is no longer needed or lack of progress has been documented. - Goal #1-5 Goal #1: anomia strategies Goal #2: cognitive testing Education - Patient has Indicated that the Following Identified Educational Needs: Hearing/Vision/Speech Impaired - Patient Instruction Patient Education: Diagnosis, Treatment Plan, Goals Person Taught: Patient Teaching Method: Discussion Response to teaching: Verbalize understanding
--- NOTE | 2021-08-18 12:41 | HP.SP.AD_ITS ---
History - History Date of Eval: 08/02/21 Medical Diagnosis (from RX): CVA Date of Onset of Diagnosis: 2018 Previous speech therapy: No Other Relevant Medical History/Diagnoses/Surgery: Patient had an MRI in 2019 that showed slight CVA per patient. 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 Objective Cog/Ling/Com - Test Administered Ziuocypll-Ntrofukucl-Ytbgxbcdjfoyt Assessment Administered: Yes Dpghldoka-Nadcqymcuk-Razhsahbbldru Assessment: Cognitive ? Linguistic skills were evaluated using patient/family interview, skilled observation and informal evaluation through tasks completed by the patient. - Orientation Orientation: Person, Birthdate - Answer Yes/No Questions Simple: WNL Complex: WNL - Follows Commands Complex: WNL - Repetition Words: WNL - Naming Responsive naming: WNL Naming in categories: WNL - Conversational Tasks Conversational Tasks: WFL Comments: Patient presented today with minimal anomia. She reported that it often occurs at work and occasionally at home/ other environments. It was note noted during today's evaluation, however, she stated that she was not stressed in this situation. She reports a high level of frustration at these anomia episodes. - Executive Function Comments Comments: Patient stated that she may have mild recall deficits. Plan - Plan Plan: Speech therapy is warranted for short term therapy for anomia and evaluation of cognitive abilities for functional abilities in daily life. - Recommendations Treatment Warranted: Yes - Frequency Frequency: 1x/Week - Prognosis Prognosis: Good - Goals that are Established: Determination:: Goals will be added/modified as deemed necessary and appropriate. Therapy will be discontinued when results of re-evaluation indicate therapy is no longer needed or lack of progress has been documented. - Goal #1-5 Goal #1: Patient will verbalize an understanding of anomia strategies as well as report use of at least 2 strategies independently. Goal #2: cognitive testing Education - Patient has Indicated that the Following Identified Educational Needs: Hearing/Vision/Speech Impaired - Patient Instruction Patient Education: Diagnosis, Treatment Plan, Goals Person Taught: Patient Teaching Method: Discussion Response to teaching: Verbalize understanding
--- NOTE | 2021-09-06 14:23 | HP.SP.DC_ITS ---
ST Discharge Summary - Discharged: Discharge: Mai Grover is discharged from [facility] speech therapy as of August 23, 2021. She was evaluated for cognitive deficits following a stroke from 2 years pervious August 02, 2021. She attended three sessions for anomia strategies as well as cognitive testing. The Cognitive Linguistic Quick Test ( CLQT) was given to her with all scores WNL for Attention, memory, language, executive functions and visuospatial deficits. She was educated on a list of 10 word finding strategies and the patient reported that she was able to use these strategies when she was calm. She reported the most word finding deficits while at work mainly with 1-2 listeners. Outside of there, word finding errors were limited. Anomia was note noticeable during therapy at any time. Patient was in agreement for discharge. A copy of this evaluation will be sent to his referring physician.
== END 2021-08-23 19:00 | disposition home or self-care (01) ==
LOC: SP 18:00
PROVIDERS: PCP Internal Medicine; Visit Provider Nurse Practitioner
DX: I63.9 Cerebral infarction, unspecified (principal)
CPT/HCPCS: 92507; 92522

== ENCOUNTER 2021-09-24 09:25 | Outpatient (CLI) | payer OTHER, SELFPAY ==
[2021-09-24 09:45] LABS: International Normalized Ratio 2.6; Prothrombin Time (Protime)PT. 27.9 SECONDS (11.7-14.9)
== END 2021-09-24 23:59 | disposition home or self-care (01) ==
LOC: LABSPEC 09:28
PROVIDERS: PCP Internal Medicine; Visit Provider Clinical Nurse Specialist
DX: I82.431 Acute embolism and thrombosis of right popliteal vein (principal)
CPT/HCPCS: 85610

== ENCOUNTER → 2021-12-01 | Outpatient (CLI) | payer OTHER, SELFPAY ==
--- NOTE | 2021-12-01 12:46 | MRI_ITS ---
EXAM: MR HEAD WITHOUT AND WITH INTRAVENOUS CONTRAST CLINICAL INDICATION: PONTINE CALCIFICATIONS TECHNIQUE: Multiplanar and multisequence MR images of the brain were obtained without and with intravenous contrast. This report was created using [employer] report generation technology. NO IMAGES WITH CONTRAST WERE PROVIDED. CONTRAST: DOTAREM 9ML IV COMPARISON: Jan 01 2021 7:10pm FINDINGS: BRAIN AND EXTRA-AXIAL SPACES: Chronic involutional changes of the brain. There is a pontine areas of low GRE signal in the brain. This likely represents areas of prior infarction and/or hemosiderin deposition or calcification. No intra- or extra-axial hemorrhage. No intracranial mass or mass effect. Posterior fossa structures are unremarkable. Ventricles are appropriate for age. No hydrocephalus. Basal cisterns are patent. SELLA: Unremarkable. Normal sella turcica, pituitary gland, infundibular stalk, optic chiasm and hypothalamus. AUDITORY SYSTEM: Unremarkable. The internal auditory canals are patent. BONES/JOINTS: Unremarkable. No discrete lytic or blastic abnormalities. SINUSES: Unremarkable as visualized. Clear. MASTOID AIR CELLS: Unremarkable as visualized. Clear. ORBITS: Unremarkable as visualized. Both globes, extraocular muscles, optic nerves and retrobulbar fat appear unremarkable. VASCULATURE: Unremarkable as visualized. Normal flow voids in the major intracranial circulation. MRI/Brain W/WO Contrast IMPRESSION: Chronic involutional changes of the brain. Electronically Signed: Talib Alicia MD at 15:46 EDT ,
--- NOTE | 2021-12-01 12:47 | MRI_ITS ---
EXAM: MR ANGIOGRAPHY HEAD WITHOUT INTRAVENOUS CONTRAST CLINICAL INDICATION: ANEURYSM TECHNIQUE: Routine [place]/brain 3D time of flight MR angiogram protocol was performed without intravenous contrast. This report was created using [employer] report ASP64 technology. COMPARISON: None. FINDINGS: RIGHT INTERNAL CAROTID ARTERY: No acute findings. No significant stenosis at the intracranial/visualized segments. No aneurysm. RIGHT ANTERIOR CEREBRAL ARTERY: Unremarkable. No significant stenosis at the visualized segments. Anterior communicating artery is present. No aneurysm. RIGHT MIDDLE CEREBRAL ARTERY: Unremarkable. No significant stenosis at the visualized segments. No aneurysm. RIGHT POSTERIOR CEREBRAL ARTERY: Unremarkable. No significant stenosis at the visualized segments. No aneurysm. RIGHT VERTEBRAL ARTERY: Unremarkable as visualized. No significant stenosis at the intradural/visualized segments. No aneurysm. LEFT INTERNAL CAROTID ARTERY: No acute findings. No significant stenosis at the intracranial/visualized segments. No aneurysm. LEFT ANTERIOR CEREBRAL ARTERY: Unremarkable. No significant stenosis at the visualized segments. Anterior communicating artery is present. No aneurysm. LEFT MIDDLE CEREBRAL ARTERY: Unremarkable. No significant stenosis at the visualized segments. No aneurysm. LEFT POSTERIOR CEREBRAL ARTERY: Unremarkable. No significant stenosis at the visualized segments. No aneurysm. LEFT VERTEBRAL ARTERY: Unremarkable as visualized. No significant stenosis at the intradural/visualized segments. No aneurysm. BASILAR ARTERY: Unremarkable. No significant stenosis. No aneurysm. OTHER VASCULATURE: No vascular malformation. OTHER FINDINGS: There are no acute findings of the [place] without a demonstrated aneurysm or hemodynamically significant stenosis. ALL ABOVE CRITERIA BY NASCET. MRI/MRA Head ONLY without Contrast IMPRESSION: There are no acute findings of the [place] without a demonstrated aneurysm or hemodynamically significant stenosis. ALL ABOVE CRITERIA BY NASCET. Electronically Signed: Talib Alicia MD at 16:30 EDT ,
[2021-12-02 07:22] LABS: CREATININE FINGERSTICK 1.15 mg/dL (0.55-1.02); EGFR FINGERSTICK 51 mL/min (>60)
== END | disposition home or self-care (01) ==
PROVIDERS: PCP Internal Medicine
DX: Q28.3 Other malformations of cerebral vessels (principal)
CPT/HCPCS: 70544; 70553; A9575

== ENCOUNTER 2022-05-12 09:58 | Outpatient (CLI) | payer OTHER, SELFPAY ==
[2022-05-12 10:23] LABS: Prothrombin Time (Protime)PT. 54.5 SECONDS (11.7-14.9)
[2022-05-12 10:32] LABS: International Normalized Ratio 6.2
== END 2022-05-12 23:59 | disposition home or self-care (01) ==
LOC: LABSPEC 10:00
PROVIDERS: PCP Internal Medicine; Visit Provider Internal Medicine
DX: I82.431 Acute embolism and thrombosis of right popliteal vein (principal)
CPT/HCPCS: 85610

== ENCOUNTER 2022-05-13 09:36 | Outpatient (CLI) | payer OTHER, SELFPAY ==
[2022-05-13 10:01] LABS: International Normalized Ratio 3.6; Prothrombin Time (Protime)PT. 35.5 SECONDS (11.7-14.9)
== END 2022-05-13 23:59 | disposition home or self-care (01) ==
LOC: LABSPEC 09:40
PROVIDERS: PCP Internal Medicine; Referring Provider Internal Medicine; Visit Provider Internal Medicine
DX: I82.431 Acute embolism and thrombosis of right popliteal vein (principal)
CPT/HCPCS: 85610

== ENCOUNTER 2022-10-11 18:00 | Outpatient (RCR) | payer OTHER, SELFPAY ==
--- NOTE | 2022-04-26 12:02 | HP.SP.EV_ITS ---
History - History Date of Eval: 04/25/22 Previous speech therapy: Yes Other Relevant Medical History/Diagnoses/Surgery: Mai was seen at [facility] for a speech and language evaluation on 04/25/22. Pt was referred for speech therapy dues to trouble with word finding, memory, expressive language. 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 Pt had a cva in 2018 and an aneurysm (date unknown). Pt received speech therapy in the past at [facility]. Pt was dismissed after 2 session. Pt feels her speech and cognition have greatly declined since her speech therapy ended in August 2021. Pt is working with her doctor because new medication may be contributing to her speech and memory problems. Smoking Status: Never smoker Hx Smoking: No Hx Tobacco Use: No - Pain Is pain an issue with your current prescribed condition?: No Patient Allergies - Allergies Allergies sulfamethoxazole [From Bactrim] Allergy (Verified 01/01/21 11:34) Hives trimethoprim [From Bactrim] Allergy (Verified 01/01/21 11:34) Hives CLQT - CLQT CLQT Administered: Yes CLQT: Cognitive Linguistic Quick Test (CLQT) is a criterion - referenced assessment designed for adults between the ages of 18 and 89 with known or suspected neurological dysfuntions. The CLQT is to assess strength and weaknesses in five cognitive domains. Severity ratings are within normal limits, mild, moderate, severe deficits. The subtests are as follows: Date: 04/26/22 - Attention Attention: Mild - Memory Memory: WNL - Executive Functions Executive Functions: Moderate - Language Language: WNL - Visuospatial Skills Visuospatial Skills: Mild - Composite Severity Rating Composite Severity Rating: Mild - Clock Drawing Severity Rating Clock Drawing Severity Rating: Severe - CLQT Comments CLQT Scores from August 2021 Mai completed the CLQT in August 2021. Her scores were the following: Attention: WNL, Memory: WNL, Executive Functioning: WNL, Language: WNL, Visuospatial Skills: WNL, Overall Rating: WNL. Mai's scores have considerable decreased on this assessment. Mai now is scoring in the range that indicates a mild to moderate cognitive deficit. HDQLIFE - Speech Difficulties - In the past 7 days. It was difficult for other people to understand me.: Sometimes Is was difficult to speak clearly?: Sometimes - In the past 7 days.. How often did you limit your social activites because you had difficulty speaking?: Never - In the past 7 days... I had trouble speaking.: Very much I was frustrated by my speech difficulties.: Very much - How much DIFFICULTY do you have... ...saying what you want to say?: Some difficulty - Score HDQLIFE Speech Difficulties Raw Score: 20 HDQLIFE Speech Difficulties T - Score: 60 Other - Other Word Finding -: During conversation, Pt exhibited mild to moderate word difficulties. Pt would get stuck and use filler words or pause for 10-20 seconds while trying to come up with the desired word. Pt stated she used to select a different word in place, but at times she cannot think of an alternative or her job requires the use of specific terminology. Pt stated she is frustrated by her difficulties. Plan - Plan Plan: Will recommend Pt for weekly outpatient speech therapy to address mild to severe cognitive impairment characterized by deficits in attention, executive functioning, visuospatial skills, clock drawing and word functioning. Pt would benefit from training in compensatory strategies to aid her word fining as well as cognitive training to improve cognitive functioning. Without treatment, Pt will be at risk to lose her employment and struggle to complete tasks of daily living. - Recommendations MBS: No Treatment Warranted: Yes Treatment Warranted: Speech Sound Production - Progress Prognosis: Excellent - Frequency Frequency: 1x/Week Duration: 4-6 Months - Goals that are Established Determination:: Goals will be added/modified as deemed necessary and appropriate. Therapy will be discontinued when results of re-evaluation indicate therapy is no longer needed or lack of progress has been documented. - Goal #1-5 Goal #1: Pt will complete basic to mod complex sustained, alternating, divided attention tasks with 90% acc independently across 3/4 measured opportunities. Goal #2: Pt will complete basic to mod complex confrontation, convergent, and divergent naming tasks with 90% acc independently across 3/4 measured opportunities to improve word retrieval. Goal #3: Pt will demonstrate use of word finding strategies during conversation with 90% acc independently across 3/4 measured opportunities to improve word retrieval Goal #4: Pt will complete basic to mod complex planning, organizing, and sequencing tasks with 90% acc independently across 3/4 measured opportunities. Goal #5: Pt will complete functional writing tasks (work projects, email to coworkers) with 90% accuracy with minimal verbal cues across 3/4 sessions Education - Patient has Indicated that the Following Identified Educational Needs: None The Patient has indicated that they have no educational or learning abilities that may effect their care.: Yes - Patient Instruction Patient Education: Diagnosis, Treatment Plan, Goals Person Taught: Patient Teaching Method: Discussion Response to teaching: Return demonstration
--- NOTE | 2022-05-10 13:23 | HP.PTEVAL_ITS ---
Patient's Visit Information GERI CALVILLO is a 62 year old F referred to Physical Therapy by ZEINAB DAUGHERTY with a diagnosis of Right Hip Pain. Date of Evaluation: 05/10/22 Physical Therapist: Shi Knapp DPT - Visit Plan Frequency: 2x /Week Duration: 4 Weeks Plan: Focus on LE and core strength/stabilization- proprioception and functional mobility. HEP Given IE: bridge, hip add in supine with ball, SLR, Side lying hip abduction - Subjective For a year or so she has been having problems with her right hip- its progressively gotten worse. a couple of weeks ago she fell at [employer] when she was working out- she wasn't holding on the rail. She then went to [facility]- x- rays which were negative and was told it just takes time to heal and to go to PT. She also wants to get her legs back in shape- she did PT for her legs in 2007. She was working out 2-3x a week- using machines and working out with a seeing eye dog trainer. She currently has pain in the right hip on the lateral aspect and radiates to the knee. Does not radiate to the lumbar spine. Describes the pain as dull and achy. Worst: 3/10 Agg: standing and walking Best: 0/10 Eases: sitting down. She does have some N/T in the toes but that is not new. Sleep: not disturbed. She has had multiple falls but she does not use an AD- reports that she gets her feet twisted up under her. She is also currently in speech therapy. PMHx: CVA, aneurism, HTN Meds: she will bring a list and have it scanned in - Objective Posture: FH, RS- can correct with verbal cues but is unable to maintain. Gait: No AD: antalgic- decreased stance on the right LE- step to gait pattern Straight Cane: no significant deviation noted. HR/TR: able with UE A. SLS: 3 sec bilateral then puts foot on floor for righting. Stairs: asc/desc 8 recip- decreased control with descent and reports instability. Balance: see FGA and TUG scores. ROM: WFL in all planes without pain of the lumbar and LE. Strength: Core: fair minus, Hip: flexion: 4-/5 Abd: 4-/5, Extn: 4/5, Add: 4/5, IR/ER:4-/5 with discomfort testing, Knee/Ankle: /. Flex: HS: moderate, Gastroc: moderate. Palpation: tender along right gluts and greater troch- down ITBand to mid thigh. Transfers: requires UE A to sit to stand - Special Tests L/S Slump test left side: Negative L/S Slump test right side: Negative L/S Left Straight Leg Raise: Negative L/S Right Straight Leg Raise: Negative R Hip Scour: Negative R Hip VIOLA - Intraarticular Pathology: Negative R Hip FADDIR - Labrum: Negative R Hip Trendelenberg - Glut Medius: Negative R Hip Frandy - IT Band: Negative - Balance/Special Test Scores Functional Gait Assessment Score: 17 % Disability: 43.3400 Lower Extremity Functional Score: 39 - Goals Goal 1:: Patient will be I with HEP and progression Goal Time Frame: 4-6 Weeks Goal 2:: Patient will ambulate >300 feet with a normalized gait pattern Goal Time Frame: 4-6 Weeks Goal 3:: Patient will perform a TUG in under 10 sec with LRD Goal Time Frame: 4-6 Weeks Goal 4:: Patient will report 80% improvement Goal Time Frame: 4-6 Weeks - Rehabilitation Potential Physical Therapy Diagnosis: Patient presents with hypomobility- she has decreased LE and core strength/stabilization, flex, proprioception and muscular endurance leading to poor posture and increased pain with ADL's Rehabilitation Potential: Fair - Anticipated Interventions Patient/Client Instruction: Educate patient on: Benefits of Fitness Program Therapeutic Exercise to Include: Strength training, Endurance training, Balance training, Coordination, Agility training, Body mechanics, Postural training, Flexibilty training, Gait and locomotor training, Neuromotor development, Dynamic Lumbar Stabilization For the Purpose of:: To improve muscle performance and motor function Cryotherapy (ice pack, ice massage): Yes Thermo therapy (hot pack): Yes Thank you for the opportunity to evaluate your patient. For Medicare and Medicare HMO plans, please review the plan of care and approve it. It will need to be FAXED BACK to us at [phone] for Medicare purposes. For Medicare only, by signing this I certify the plan of care. Please let me know if there are questions or concerns regarding this plan of care. Physician Signature: Date:
--- NOTE | 2022-06-16 17:25 | HP.PTREVAL ---
ZEINAB DAUGHERTY, It has been my pleasure to treat GERI CALVILLO over the last 8 visits for Right Hip Pain. Please see the progress note below for an update on the physical therapy plan of care! Subjective: Patient reports that she forgot her cane today- she feels due to her instability and strength she needs to use it. She doesn't feel that she is moving the way that she wants to. She does feel that therapy is helping. She has been able to do a little more but not enough. Objective/Function: Posture: FH, RS- can correct with verbal cues but is unable to maintain. Gait: No AD: slightly antalgic- recip gait pattern HR/TR: able with UE A. Stairs: asc/desc 8 recip- decreased control with descent and reports instability. ROM: WFL in all planes without pain of the lumbar and LE. Strength: Core: fair minus, Hip: flexion: 4/5 Abd: 4/5, Extn: 4/5, Add: 4/5, IR/ER:4/5 with discomfort testing, Knee/Ankle: 5/5. Flex: HS: moderate, Gastroc: moderate. Palpation: tender along right gluts and greater troch- down ITBand to mid thigh. Transfers: requires UE A to sit to stand. - Special Tests. L/S Slump test left side: Negative. L/S Slump test right side: Negative. L/S Left Straight Leg Raise: Negative. L/S Right Straight Leg Raise: Negative. R Hip Scour: Negative. R Hip VIOLA - Intraarticular Pathology: Negative. R Hip FADDIR - Labrum: Negative. R Hip Trendelenberg - Glut Medius: Negative. R Hip Frandy - IT Band: Negative Plan Plan: 06/16/21: Continue with current POC 2x a week for 4 weeks- get back to HEP in the gym with exercises. Pt plans to come in 5-10 min's early and start I Nustep. Focus on LE and core strength/stabilization- proprioception and functional mobility. HEP Given IE: bridge, hip add in supine with ball, SLR, Side lying hip abduction Balance/Gait/Functional tests - Balance/Special Test Scores Functional Gait Assessment Score: 17 % Disability: 43.3400 Lower Extremity Functional Score: 30 Tug Test: 20-30sec.=variable mobility 30 Second Chair Rise Test Seconds: 13 Goals Goal 1:: Patient will be I with HEP and progression Goal Time Frame: 4-6 Weeks Goal Progress: Progressing Goal 2:: Patient will ambulate >300 feet with a normalized gait pattern Goal Time Frame: 4-6 Weeks Goal Progress: Progressing Goal 3:: Patient will perform a TUG in under 10 sec with LRD Goal Time Frame: 4-6 Weeks Goal Progress: Progressing Goal 4:: Patient will report 80% improvement Goal Time Frame: 4-6 Weeks Goal Progress: Progressing Anticipated Interventions Patient/Client Instruction: Educate patient on: Benefits of Fitness Program Therapeutic Exercise to Include: Strength training, Endurance training, Balance training, Coordination, Agility training, Body mechanics, Postural training, Flexibilty training, Gait and locomotor training, Neuromotor development, Dynamic Lumbar Stabilization For the Purpose of:: To improve muscle performance and motor function Cryotherapy (ice pack, ice massage): Yes Thermo therapy (hot pack): Yes Please do not hesitate to contact me at [phone] by phone or if you have questions or concerns regarding this new plan of care! Sincerely, AINSLEY AranaT
--- NOTE | 2022-07-13 17:00 | HP.PTREVAL ---
ZEINAB DAUGHERTY, It has been my pleasure to treat GERI CALVILLO over the last 16 visits for Right Hip Pain. Please see the progress note below for an update on the physical therapy plan of care! Subjective: Pain with longer walking, but none otherwise. Pt. reports being 70% better overall. Pt. is working, but requires use of SPC for stability with walking to alternate offices due to distance. No pain currently. Objective/Function: Pt. is overall doing better. She reports minimal to no hip pain, except for longer walking. She is using her cane for longer distances and at work. She is not using it in her home. TU.1 sec without AD, 10.8 sec with SPC. pt. reports no pain with trials. She ambulated 351' in 2:01sec. Pt. had good control with SPC good mechanics noted. Without AD she has increased instability, decreased step length. She reports no increase in pain, but is much more guarded with her mobility. She is close to I with her gym exercises and plans to continue this I. I want her to over the next 3 weeks work on the HEP in gym on her own. She has 1 appointment scheduled in 3 weeks with supervising PT. If she is doing well without issues she is to cancel that appointment and will be DC. If on the other hand she is having issues, she is to keep the appointment and will discuss at that point in time. Plan Plan: Pt. to attempt gym HEP I for 2-3 weeks. Follow up in 2-3 weeks if needed. If doing well, she will be DC to HEP at that point in time. Balance/Gait/Functional tests - Balance/Special Test Scores Functional Gait Assessment Score: 17 % Disability: 43.3400 Lower Extremity Functional Score: 36 TUG Test Time Seconds: 10.8 Tug Test: <20 sec.=mostly independent 30 Second Chair Rise Test Seconds: 13 Goals Goal 1:: Patient will be I with HEP and progression Goal Time Frame: 4-6 Weeks Goal Progress: Goal Met Goal 2:: Patient will ambulate >300 feet with a normalized gait pattern Goal Time Frame: 4-6 Weeks Goal Progress: Goal Met Goal 3:: Patient will perform a TUG in under 10 sec with LRD Goal Time Frame: 4-6 Weeks Goal Progress: Progressing Goal 4:: Patient will report 80% improvement Goal Time Frame: 4-6 Weeks Goal Progress: Progressing Anticipated Interventions Patient/Client Instruction: Educate patient on: Benefits of Fitness Program Therapeutic Exercise to Include: Strength training, Endurance training, Balance training, Coordination, Agility training, Body mechanics, Postural training, Flexibilty training, Gait and locomotor training, Neuromotor development, Dynamic Lumbar Stabilization For the Purpose of:: To improve muscle performance and motor function Cryotherapy (ice pack, ice massage): Yes Thermo therapy (hot pack): Yes Please do not hesitate to contact me at [phone] by phone or if you have questions or concerns regarding this new plan of care! Sincerely, Armando Linton DPT
--- NOTE | 2022-09-15 15:00 | HP.SPREEV_ITS ---
Visit History - Visit Info Date of Eval: 04/25/22 Visit: 1 Patient's Approved Number of Visits: 20 Insurance Date Limit: 06/11/23 Instructor Dancing: BRITTNEY - History Attending Doctor: ZEINAB ADUGHERTY Referring Doctor: ZEINAB DAUGHERTY Reason for Referral: MEMORY LOSS,H/O CVA/PT HAS RX Previous speech therapy: Yes Other Relevant Medical History/Diagnoses/Surgery: Mai was seen at [facility] for a speech and language evaluation on 04/25/22. Pt was referred for speech therapy dues to trouble with word finding, memory, expressive language. 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 Pt had a cva in 2017 and an aneurysm (date unknown). Pt received speech therapy in the past at [facility]. Pt was dismissed after 2 session. Pt feels her speech and cognition have greatly declined since her speech therapy ended in August 2021. Pt is working with her doctor because new medication may be contributing to her speech and memory problems. Smoking Status: Never smoker - Diagnosis Diagnosis: memory loss - Pain Is pain an issue with your current prescribed condition?: No - Personal Preferred language: Anguillan History - History Date of Eval: 04/25/22 Previous speech therapy: Yes Other Relevant Medical History/Diagnoses/Surgery: Mai was seen at [facility] for a speech and language evaluation on 04/25/22. Pt was referred for speech therapy dues to trouble with word finding, memory, expressive language. 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 Pt had a cva in 2018 and an aneurysm (date unknown). Pt received speech therapy in the past at [facility]. Pt was dismissed after 2 session. Pt feels her speech and cognition have greatly declined since her speech therapy ended in August 2021. Pt is working with her doctor because new medication may be contributing to her speech and memory problems. Smoking Status: Never smoker Hx Smoking: No Hx Tobacco Use: No - Pain Is pain an issue with your current prescribed condition?: No Patient Allergies - Allergies Allergies sulfamethoxazole [From Bactrim] Allergy (Verified 01/01/21 11:34) Hives trimethoprim [From Bactrim] Allergy (Verified 01/01/21 11:34) Hives Previous/Current Goals - Goals 1-5 Previous Goal #1: Pt will complete basic to mod complex sustained, alternating, divided attention tasks with 90% acc independently across 3/4 measured opportunities. Goal 1 Status: Goal Met: Pt completed an alternating attention worksheet at home with 2 errors out of 28. Pt completed an alternating attention task with 1 error after restarting the activity due to errors. Pt told a story while sorting cards by suit. Pt stopped sorting cards to find words x2. Increased word finding errors, yet pt was able to complete the task with 100% acc Previous Goal #2: Pt will complete basic to mod complex confrontation, convergent, and divergent naming tasks with 90% acc independently across 3/4 measured opportunities to improve word retrieval. Goal 2 Status: Goal Partially Met (Met 1 session): Pt named 8 items in an abstract category. Trial 1: 11/17, increased to 01/17 with min cues. Trial 2: 01/17 I. Trial 3: 01/17 I with cuing to think outside the box. Extended processing time noted on this activity. Overall accuracy is 91% acc Previous Goal #3: Pt will demonstrate use of word finding strategies during conversation with 90% acc independently across 3/4 measured opportunities to improve word retrieval Goal 3 Status: Goal Met: Pt demonstrated zero to minimal word finding issues for three session. Pt is able to I use word finding strategies such as using a related word, describing the word, or pausing to think. Previous Goal #4: Pt will complete basic to mod complex planning, organizing, and sequencing tasks with 90% acc independently across 3/4 measured opportunities. Goal 4 Status: Goal Progressing: Pt completed a pros & cons with 5+ items on each side with min cues Pt planned what she would do if she had to discuss a problem with a coworker with min to mod cues. Previous Goal #5: Pt will complete functional writing tasks (work projects, email to coworkers) with 90% accuracy with minimal verbal cues across 3/4 sessions Goal 5 Status: Goal Progressing: Pt wrote an email to her boss with 2 constraints with min to mod cues. - Goals 6-10 Previous Goal #6: Pt will complete memory task with 90% acc during 3/4 measured sessions. Goal 6 Status: Goal Partially Met (Met for 2 sessions): Pt recalled boxed information (numbers) with 100% acc when using compensatory strategies taught in the last session Pt listened to a paragraph and answered questions from memory with 100% acc Subjective Cog/Ling/Com - Subjective Cognitive/Linguistic/Communication: Pt is still concerned about her cognitive linguistic abilities and feels that these deficits are impacting her at work. Pt has made improve in tx, but has not met all of her goals at this time. CLQT - CLQT CLQT Administered: Yes CLQT: Cognitive Linguistic Quick Test (CLQT) is a criterion - referenced assessment designed for adults between the ages of 18 and 89 with known or suspected neurological dysfuntions. The CLQT is to assess strength and weaknesses in five cognitive domains. Severity ratings are within normal limits, mild, moderate, severe deficits. The subtests are as follows: Date: 04/26/22 - Attention Attention: Mild - Memory Memory: WNL - Executive Functions Executive Functions: Moderate - Language Language: WNL - Visuospatial Skills Visuospatial Skills: Mild - Composite Severity Rating Composite Severity Rating: Mild - Clock Drawing Severity Rating Clock Drawing Severity Rating: Severe - CLQT Comments CLQT Scores from August 2021 Mai completed the CLQT in August 2021. Her scores were the following: Attention: WNL, Memory: WNL, Executive Functioning: WNL, Language: WNL, Visuospatial Skills: WNL, Overall Rating: WNL. Mai's scores have considerable decreased on this assessment. Mai now is scoring in the range that indicates a mild to moderate cognitive deficit. CLQT Re-Eval - Testing Results CLQT Test Comparison: Attention: 197 - Within Normal Limits. Memory: 161 - Within Normal Limits. Executive Functionin.5 - Within Normal Limits. Language: 28 - Mild. Visuospatial Skills: 90.5 - Within Normal Limits. Clock Drawin - Moderate. Composite Ratin.8 - Within Normal Limits. Pt's scores improved overall on the CLQT and are now falling within the normal range. HDQLIFE - Speech Difficulties - In the past 7 days. It was difficult for other people to understand me.: Sometimes Is was difficult to speak clearly?: Sometimes - In the past 7 days.. How often did you limit your social activites because you had difficulty speaking?: Never - In the past 7 days... I had trouble speaking.: Very much I was frustrated by my speech difficulties.: Very much - How much DIFFICULTY do you have... ...saying what you want to say?: Some difficulty - Score HDQLIFE Speech Difficulties Raw Score: 20 HDQLIFE Speech Difficulties T - Score: 60 Other - Other Word Finding -: During conversation, Pt exhibited mild to moderate word difficulties. Pt would get stuck and use filler words or pause for 10-20 seconds while trying to come up with the desired word. Pt stated she used to select a different word in place, but at times she cannot think of an alternative or her job requires the use of specific terminology. Pt stated she is frustrated by her difficulties. Plan - Plan Plan: Will recommend Pt for continued weekly outpatient speech therapy to address mild to mod cognitive impairment characterized by deficits in working memory, ability to complex complex work tasks and divergent naming. Pt would benefit from training in compensatory strategies to aid her working memory, as well as cognitive training to improve cognitive functioning. Without treatment, Pt will be at risk for losing her ability to be employed and struggle to complete tasks of complex daily living. - Recommendations MBS: No Treatment Warranted: Yes Treatment Warranted: Cognition - Progress Prognosis: Excellent - Frequency Frequency: 1x/Week Duration: 3 Months - Goals that are Established Determination:: Goals will be added/modified as deemed necessary and appropriate. Therapy will be discontinued when results of re-evaluation indicate therapy is no longer needed or lack of progress has been documented. - Goal #1-5 Goal #1: Pt will independently name 8 items in concrete or abstract category within a 1 minute time frame during 4/5 trials across 3 measured opportunities to improve word retrieval and processing speed. Goal #2: Pt will complete complex planning, organizing, and sequencing tasks with 90% acc independently across 3 measured opportunities. Goal #3: Pt will complete functional writing tasks (work projects, email to coworkers) given up to minimal cues within a 10 minute time frame during 2/3 trials across 3 measured sessions. Goal #4: Pt will complete working memory tasks including but not limited to functional ADL tasks with 90% acc during 3 measured sessions. Goal #5: Pt will complete functional writing tasks (work projects, email to coworkers) with 90% accuracy with minimal verbal cues across 3/4 sessions - Goal #6-10 Goal #6: Pt will complete functional memory task with 90% acc Education - Patient has Indicated that the Following Identified Educational Needs: None The Patient has indicated that they have no educational or learning abilities that may effect their care.: Yes - Patient Instruction Patient Education: Diagnosis, Treatment Plan, Goals Person Taught: Patient Teaching Method: Discussion Response to teaching: Return demonstration
== END 2022-10-11 19:00 | disposition home or self-care (01) ==
LOC: SP 18:00
PROVIDERS: PCP Internal Medicine
DX: R41.3 Other amnesia (principal); M46.1 Sacroiliitis, not elsewhere classified; M53.1 Cervicobrachial syndrome; M25.551 Pain in right hip
CPT/HCPCS: 92507; 92508; 92523; 97110; 97162; 97164

== ENCOUNTER 2023-01-05 17:00 | Outpatient (RCR) | payer OTHER, SELFPAY | END 2023-01-05 19:00 | disposition home or self-care (01) | LOC: SP 17:00 | PROVIDERS: PCP Internal Medicine | DX: M25.551 Pain in right hip (principal); M46.1 Sacroiliitis, not elsewhere classified; R53.1 Weakness; R41.3 Other amnesia | CPT/HCPCS: 92507 ==

== ENCOUNTER 2023-06-19 15:00 | Outpatient (RCR) | payer OTHER, SELFPAY ==
--- NOTE | 2023-03-06 18:58 | HP.PTEVAL ---
Patient's Visit Information Visit Information Visit Information: GERI CALVILLO is a 63 year old F referred to Physical Therapy by JOSH BEYER with a diagnosis of R LEG WEAKNESS. Date of Evaluation: 03/06/23 Physical Therapist: Fior Gordon PT, Cert MDT Visit Plan Frequency: 2x /Week Duration: 4-6 Weeks Plan: *FALL RISK. USE GAIT BELT FOR SAFETY AND WALK PATIENT IN AND OUT OF DEPARTMENT* FOCUS ON LE AND CORE STRENGHT AND STABILITY. PROPRIOCEPTION AND FUNCTIONAL MOBILITY TRAINING INCLUDING STEPS. PATIENT HAS STEPS UP TO BEDROOM IN APARTMENT. GIVEN PICS WITH HEP. 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 LIVES ALONE - SISTERS LIVE ABOUT 5 MINUTES AWAY. PATIENT DRIVES. Disability: NO Present symptoms: C/O LEG WEAKNESS R > L. NO RECENT FALLS. PATIENT DENIES LOWER BODY PAIN. PATIENT REPORTS INTERMITTENT R HIP AND KNEE NUMBNESS AND TINGLING. PATIENT DENIES NUMBNESS AND TINGLING IN HER TOES OR OTHERWISE IN LOWER BODY. Present since: ABOUT 6 MONTHS AGO Pain Scale: N/A Is it getting better, worse or staying the same: STAYING THE SAME Commenced as a result of: FALL AT HOME - I TRIPPED. Worse: LATER IN THE EVENING, FIRST THING IN THE MORNING, WALKING A LOT, STANDING A LOT, GETTING UP AND DOWN A LOT, GR[employer] SHOPPING. Better: BY ABOUT 10 AM I START FEELING BETTER. SITTING. Previous history/Previous treatment: MULTIPLE FALLS WITH FIRST FALL BEING ABOUT A YEAR AGO DOWN STEPS. PHYSICAL THERAPY . BORN WITH L LEG SHORTER THAN R AND R LEG SMALLER/THINNER THAN LEFT BUT STATES SHE GOT ALONG FINE UNTIL FALL DOWN THE STEPS. Gait: CURRENTLY GETTING AROUND WITH A CANE. STATES SHE DOESN'T USE IT AT HOME BECAUSE IT IS A SMALL ONE FLOOR APARTMENT. Bowel or Bladder Dysfunction: NO Accidents: NO Unexplained weight loss: NO Imaging: PATIENT REPORTS RECENT HIP X-RAYS AT [facility] ABOUT 3 MONTHS AGO THAT WERE NORMAL. PMH FROM [facility] EMR AND REVIEWED WITH PATIENT. Breast cancer 1998 Hypertension Non-smoker Osteopenia Syncope Tremor VTE (venous thromboembolism). OTHER: CVA APPROX 2009 Objective Objective: Sitting/Standing Posture: POOR. FH. RSH'S. ABLE TO PARTIALLY CORRECT BUT NOT MAINTAIN. Lordosis: RECUCED LORDOSIS BUT NO RELEVANT LATERAL SHIFT. R ILIAC CREST HIGHER THAN L. SCOLIOSIS. L SHLD HIGHER THAN R. Other Observations: THIS PATIENT AMBULATES INDEP'LY INTO PT WITH A STRAIGHT CANE AND A STEP TO GAIT PATTERN AND DECREASED WEIGHT BEARING TIME ON R LE. DECREASED PIPER STRIDE LENGTH. DECREASED CADANCE AND DECREASED PIPER HEEL STRIKE AND TOE OFF PHASES OF GAIT. Sensory deficit: PIPER LE LIGHT TOUCH SENSATION GROSSLY INTACT AND SYMMETRICAL ROM deficit: PIPER LE HIP FLEX, HS AND GASTROC-SOLEUS COMPLEX TIGHTNESS. UNABLE TO GET RIGHT KNEE FULLY STRAIGHT APPROX -10 DEG. Motor deficit: R HIP 4-/5, KNEE 4-/5, ANKLE 3-/5. L HIP 4/5, KNEE 5/5, ANKLE 5/5. BALANCE: UNABLE TO SLS ON L LE FOR MORE THAN A SECOND OR TWO WITHOUT UE ASSIST. UNABLE TO BALANCE ON R LE WITHOUT UE ASSIST. Dural Signs: NEGATIVE PIPER LE'S. Lumbar mvmt loss: flex - MIN TO MOD ext - MOD TO NILES R SG - MOD L SG - NILES PATIENT DENIES PAIN WITH LUMBAR ROM TESTING. Core strength: FAIR. Palpation: NO ACUTE LUMBAR, HIP OR KNEE TENDERNESS. Balance/Special Test Scores Lower Extremity Functional Score: 48 TUG Test Time Seconds: 22.24 30 Second Chair Rise Test Seconds: 8 Goals Goal 1:: PATIENT WILL BE INDEP WITH [facility] FOR CONTINUED IMPROVEMENT ONCE FORMAL PHYSICAL THERAPY CONCLUDES. Goal Time Frame: 4-6 Weeks Goal 2:: PATIENT WILL COMPLETE 10 STANDS IN 30 SECS WITH ONE UE ASSIST TO DEMONSTRATE IMPROVED FUNCTIONAL STRENGTH Goal Time Frame: 4-6 Weeks Goal 3:: PATIENT WILL COMPLETE TUG IN < 15 SECS WITH STRAIGHT CANE TO DEMONSTRATE IMPROVED GAIT STABILITY Goal Time Frame: 4-6 Weeks Goal 4:: PATIENT WILL AMBULATE >400 FEET WITH STRAIGHT CANE WITH IMPROVED STRIDE LENGTH AND RECIPRICAL PATTERN INCLUDING INCREASED WEIGHT BEARING TIME ON R LE TO IMPROVE GAIT EFFICIENCY. Goal Time Frame: 4-6 Weeks Anticipated Interventions Patient/Client Instruction: Educate patient on: Condition, Plan of Care and Risk Factors For the Purpose of:: To improve self management Therapeutic Exercise to Include: Strength training, Balance training, Flexibilty training, Gait and locomotor training and Neuromotor development For the Purpose of:: To increase ROM, To improve muscle performance and motor function, To improve ability of physical actions for home/community/work/leisure and To improve gait and locomotor functions Text: Thank you for the opportunity to evaluate your patient. For Medicare and Medicare HMO plans, please review the plan of care and approve it. It will need to be FAXED BACK to us at [phone] for Medicare purposes. For Medicare only, by signing this I certify the plan of care. Please let me know if there are questions or concerns regarding this plan of care. Physician Signature: Date:
--- NOTE | 2023-04-04 14:38 | HP.PTREVAL ---
Re-Evaluation Intro: JOSH BEYER, It has been my pleasure to treat GERI CALVILLO over the last 9 visits for R LEG WEAKNESS. Please see the progress note below for an update on the physical therapy plan of care! Subjective Subjective: PATIENT REPORTS THAT SINCE STARTING THERAPY SHE CAN GO UP AND DOWN THE STAIRS BETTER, SHE CAN DO THINGS MORE AT HOME WITHOUT USING HER CANE AND WHEN SHE IS AT HER APPARTMENT SHE FEELS STEADIER. SHE STATES SHE FEELS LIKE SHE NEEDS MORE PT AND WOULD LIKE TO CONTINUE. FOLLOW UP PENDING WITH DR. HULL MONDAY. Objective Objective/Function: PATIENT WAS SEEN TODAY FOR RE-ASSESSMENT OF PROGRESS TOWARD THE SET PT GOALS AND THE NEED FOR FURTHER PHYSICAL THERAPY VS READINESS FOR DISCHARGE. PATIENT IS MAKING PROGRESS WITH PT AND IS A GOOD CANDIDATE TO CONTINUE PT BASED ON PROGRESS MADE AND ROOM FOR FURTHER IMPROVEMENT. PATIENT IS AGREEABLE. UPON EXAM TODAY: THIS PATIENT AMBULATES INDEP'LY INTO PT WITH A STRAIGHT CANE AND A STEP TO GAIT PATTERN AND DECREASED WEIGHT BEARING TIME ON R LE COMPARED TO LEFT BUT IMPROVIING. DECREASED PIPER STRIDE LENGTH. DECREASED CADANCE AND DECREASED PIPER HEEL STRIKE AND TOE OFF PHASES OF GAIT. Stairs: PATIENT DEMO'S ABILITY TO GO UP STEPS RECIPRICALLY WITH ONE HR AND NO AD SAFELY WITH MINIMAL DEVIATION AND DOWN STEPS WITH STEP TO PATTERN, ONE HR AND NO AD SAFELTY (SHE CARRIES HER CANE ON THE STEPS AND STATES THIS IS HOW SHE GOES IN AND OUT OF HER APPARTMENT). Sensory deficit: PIPER LE LIGHT TOUCH SENSATION GROSSLY INTACT AND SYMMETRICAL ROM deficit: PIPRE LE HIP FLEX, HS AND GASTROC-SOLEUS COMPLEX TIGHTNESS. UNABLE TO GET RIGHT KNEE FULLY STRAIGHT APPROX -10 DEG. Motor deficit: R HIP 4-/5, KNEE 4-/5, ANKLE 3-/5. L HIP 4/5, KNEE 5/5, ANKLE 5/5. BALANCE: PATIENT IS NOW ABLE TO SLS ON L LE WITHOUT UE ASSIST X APPROX 10 SEC AND R LE X APPROX 3-4 SEC. Dural Signs: NEGATIVE PIPER LE'S. Lumbar mvmt loss: flex - MIN TO MOD ext - MOD TO NILES R SG - MOD L SG - NILES PATIENT DENIES PAIN WITH LUMBAR ROM TESTING. TUG TIME HAS IMPROVED FROM 22.24 SEC TO 20.[address] STS TEST HAS IMPROVED FROM 8 WITH ONE UE ASSIST TO 8 WITHOUT UE ASSIST. Plan Plan Plan: *FALL RISK. USE GAIT BELT FOR SAFETY AND WALK PATIENT IN AND OUT OF DEPARTMENT* FOCUS ON LE AND CORE STRENGHT AND STABILITY. PROPRIOCEPTION AND FUNCTIONAL MOBILITY TRAINING INCLUDING STEPS. PATIENT HAS STEPS UP TO BEDROOM IN APARTMENT. GIVEN PICS WITH HEP. Balance/Gait/Functional tests Balance/Special Test Scores Lower Extremity Functional Score: 48 TUG Test Time Seconds: 22.24 Tug Test: 20-30sec.=variable mobility 30 Second Chair Rise Test Seconds: 8 Goals Goals Goal 1:: PATIENT WILL BE INDEP WITH HEP FOR CONTINUED IMPROVEMENT ONCE FORMAL PHYSICAL THERAPY CONCLUDES. Goal Time Frame: 4-6 Weeks Goal Progress: Progressing Goal 2:: PATIENT WILL COMPLETE 10 STANDS IN 30 SECS WITH ONE UE ASSIST TO DEMONSTRATE IMPROVED FUNCTIONAL STRENGTH Goal Time Frame: 4-6 Weeks Goal Progress: 1ST GOAL MET Goal 3:: PATIENT WILL COMPLETE TUG IN < 15 SECS WITH STRAIGHT CANE TO DEMONSTRATE IMPROVED GAIT STABILITY Goal Time Frame: 4-6 Weeks Goal Progress: Progressing Goal 4:: PATIENT WILL AMBULATE >400 FEET WITH STRAIGHT CANE WITH IMPROVED STRIDE LENGTH AND RECIPRICAL PATTERN INCLUDING INCREASED WEIGHT BEARING TIME ON R LE TO IMPROVE GAIT EFFICIENCY. Goal Time Frame: 4-6 Weeks Goal Progress: Progressing Anticipated Interventions Anticipated Interventions Patient/Client Instruction: Educate patient on: Condition, Plan of Care and Risk Factors For the Purpose of:: To improve self management Therapeutic Exercise to Include: Strength training, Balance training, Flexibilty training, Gait and locomotor training and Neuromotor development For the Purpose of:: To increase ROM, To improve muscle performance and motor function, To improve ability of physical actions for home/community/work/leisure and To improve gait and locomotor functions Re-Evaluation Ending Re-evaluation ending: Please do not hesitate to contact me at [phone] by phone or if you have questions or concerns regarding this new plan of care! Sincerely, Fior Gordon PT, Cert MDT
--- NOTE | 2023-05-09 14:29 | HP.PTREVAL_ITS ---
Re-Evaluation Intro: JOSH BEYER, It has been my pleasure to treat GERI CALVILLO over the last 19 visits for R LEG WEAKNESS. Please see the progress note below for an update on the physical therapy plan of care! Subjective Subjective: PATIENT REPORTS SHE IS IMPROVING BUT SHE FEELS LIKE SHE STILL NEEDS THERAPY. SHE REPORTS SHE IS DOING HER HEP. SHE STATES SHE FEELS READY TO START TO TRY THE GYM MACHINES AGAIN. PATIENT REPORTS SHE IS ON DECREASED WORK HOURS - WORKING 8 HRS 3 DAYS A WK AND 4 HRS 2 DAYS A WK FOR A YEAR NEEDED. Objective Objective/Function: PATIENT WAS SEEN TODAY FOR RE-ASSESSMENT OF PROGRESS TOWARD THE SET PT GOALS AND THE NEED FOR FURTHER PHYSICAL THERAPY VS READINESS FOR DISCHARGE. PATIENT IS MAKING PROGRESS WITH PT AND IS A GOOD CANDIDATE TO CONTINUE PT BASED ON PROGRESS MADE AND ROOM FOR FURTHER IMPROVEMENT. PATIENT IS AGREEABLE. UPON EXAM TODAY: THIS PATIENT AMBULATES INDEP'LY INTO PT WITH A STRAIGHT CANE. NO LOB. SHE IS NOW ABLE TO WALK WITH A RECIPRICAL STEP THROUGH PATTERN. Lumbar mvmt loss: flex - MIN ext - MOD R SG - MOD L SG - NILES PATIENT DENIES PAIN WITH LUMBAR ROM TESTING. TUG TIME HAS IMPROVED FROM 20.65 SEC TO 14.71 SEC WITH STRAIGHT CANE. STS TEST HAS IMPROVED FROM 8 TO 10 WITHOUT UE ASSIST. Plan Plan Plan: CONTINUE PT 2X'S A WK X 4-5 WKS CONTINUE TO WORK ON LE AND CORE STRENGTH ALONG WITH GAIT AND BALANCE. ATTEMPT TO TRANSITION BACK TO GYM MACHINES SAFETY ALLOWS. PATIENT HAS HAD GYM MEMBERSHIP IN RECENT PAST AND PLANS TO RENEW MEMBERSHIP IF ABLE TO USE SAFELY. Balance/Gait/Functional tests Balance/Special Test Scores Lower Extremity Functional Score: 36 TUG Test Time Seconds: 14.71 Tug Test: <20 sec.=mostly independent 30 Second Chair Rise Test Seconds: 10 Goals Goals Goal 1:: PATIENT WILL BE INDEP WITH HEP FOR CONTINUED IMPROVEMENT ONCE FORMAL PHYSICAL THERAPY CONCLUDES. Goal Time Frame: 4-6 Weeks Goal Progress: Progressing Goal 2:: PATIENT WILL COMPLETE 10 STANDS IN 30 SECS WITH ONE UE ASSIST TO DEMONSTRATE IMPROVED FUNCTIONAL STRENGTH Goal Time Frame: 4-6 Weeks Goal Progress: Goal Met Goal 3:: PATIENT WILL COMPLETE TUG IN < 15 SECS WITH STRAIGHT CANE TO DEM ONSTRATE IMPROVED GAIT STABILITY Goal Time Frame: 4-6 Weeks Goal Progress: Goal Met Goal 4:: PATIENT WILL AMBULATE >400 FEET WITH STRAIGHT CANE WITH IMPROVED STRIDE LENGTH AND RECIPRICAL PATTERN INCLUDING INCREASED WEIGHT BEARING TIME ON R LE TO IMPROVE GAIT EFFICIENCY. Goal Time Frame: 4-6 Weeks Goal Progress: Goal Met Goal 5:: PATIENT WILL BE INDEP WITH A GYM EX PROGRAM FOR CONTINUED IMPROVEMENT ONCE FORMAL PHYSICAL THERAPY CONCLUDES. Goal Time Frame: 4-6 Weeks Anticipated Interventions Anticipated Interventions Patient/Client Instruction: Educate patient on: Condition, Plan of Care and Risk Factors For the Purpose of:: To improve self management Therapeutic Exercise to Include: Strength training, Balance training, Flexibilty training, Gait and locomotor training and Neuromotor development For the Purpose of:: To increase ROM, To improve muscle performance and motor function, To improve ability of physical actions for home/community/work/leisure and To improve gait and locomotor functions Re-Evaluation Ending Re-evaluation ending: Please do not hesitate to contact me at [phone] by phone or if you have questions or concerns regarding this new plan of care! Sincerely, Fior Gordon, PT, Cert MDT
--- NOTE | 2023-06-20 08:56 | HP.PTREVAL ---
Re-Evaluation Intro: JOSH BEYER, It has been my pleasure to treat GERI CALVILLO over the last 28 visits for R LEG WEAKNESS. Please see the progress note below for an update on the physical therapy plan of care! Subjective Subjective: PATIENT REPORTS SHE HAS IMPROVED OVER THE LAST MONTH. SHE REPORTS SHE HAS MORE STABILITY WHEN SHE WALKS. SHE STATES THAT WHEN SHE COMES HERE SHE CAN TELL HER LEGS FEEL A LITTLE BIT STRONGER. SHE REPORTS HER R LEG ISN'T GOOD IT COULD BE AND SHE KNOWS SHE NEEDS TO KEEP EXERCISING. SHE REPORTS THE ONLY TIME SHE HAS FALLEN WAS AT WORK ABOUT 2 WEEKS AGO ON STEPS. SHE REPORTS SHE SHOULDN'T HAVE BEEN ON THOSE STEPS BECAUSE SHE NEVER USES THEM AND IT DOESN'T HAVE A HANDRAIL AT THE RIGHT ANGLE FOR HER. SHE REPORTS SHE HURT HER R KNEE AND IT ISN'T SORE ANYMORE. SHE DENIES SEEKING MEDICAL ATTENTION FOR HER KNEE. SHE REPORTS SHE CAN GO AROUND THOSE STEPS SHE JUST DIDN'T. PATIENT REPORTS SHE STARTED WEARING A NEW PAIR OF SHOES MORE LATELY AND SHE DOESN'T FEEL LIKE HER R LEG WORKS GOOD IN THEM HER OTHER PAIR. SHE REPORTS SHE THOUGHT IT WOULD BE BETTER WITH THE NEW SHOES BUT IT DOESN'T SEEM TO BE. UPON FURTHER QUESTIONING TODAY PATIENT REPORTS THE ONLY STROKE SHE HAD WAS IN APPROX 2018 AND IT DID NOT EFFECT HER LEGS. Objective Objective/Function: PATIENT WAS SEEN TODAY FOR RE-ASSESSMENT OF PROGRESS TOWARD THE SET PT GOALS AND THE NEED FOR FURTHER PHYSICAL THERAPY VS READINESS FOR DISCHARGE. PATIENT IS MAKING SLOW PROGRESS WITH PT BUT CONTINUES TO HAVE BALANCE PROBLEMS AND SAFETY CONCERNS. HER GOAL IS TO HAVE A MEMBERSHIP HERE AT [employer] AND EXERCISE ON THE MACHINES AGAIN. SHE HAS PROGRESSED TO THE MACHINES BUT IS NOT SAFE WITH INDEP GYM EX'S. SHE REMAINS A FALL RISK. SHE AMBULATES INDEP'LY INTO PT TODAY WITH A STRAIGHT CANE WITH A STEP THROUGH GAIT PATTERN BUT SHE IS HURRYING, APPEARS UNSTEADY, REQUIRES CUES TO SLOW DOWN BUT NO LOB ON THE WAY IN. SHE DID HOWEVER LOSE HER BALANCE ON THE WAY OUT WHICH SHE REGAINED INDEP'LY. WEARING NEW SHOES. DECREASED HEEL STRIKE AND TOE OFF R LE. Motor deficit: R HIP 4/5, KNEE 4/5, ANKLE 3-/5. L HIP 4+/5, KNEE 5/5, ANKLE 5/5. BALANCE: ABLE TO SLS ON L LE X 4 SEC AND ONLY ABLE TO SLS ON R LE X 2 SEC WITHOUT UE ASSIST. POSSIBLE BENEFITS OF AFO FOR RLE WERE AGAIN DISCUSSED WITH PATIENT BUT SHE DOES NOT SEEM TO BE ABLE TO MAKE A DECISION ABOUT TRYING ONE OR NOT. PATIENT ATTENDED THIS SHARRON'T ALONE TODAY. SHE STATES SHE WOULD LIKE TO CONTINUE PHYSICAL THERAPY. SHE IS UNABLE TO REPORT WHEN SHE HAD HER LAST SAHRRON'T WITH JOSH BEYER OR WHEN HER NEXT SHARRON'T IS. THIS PT WOULD LIKE TO DISCUSS A PHYSICAL THERAPY PLAN OF CARE WITH HER REFERRING PRACTITIONER PRIOR TO SCHEDULING MORE VISITS AND PATIENT IS AGREEABLE. Plan Plan Plan: HOLD PT. WILL CALL [facility] TO TRY TO SPEAK WITH JOSH BEYER TO DISCUSS POSSIBLE BENEFITS OF R AFO AND POC FOR PT MOVING FORWARD. Balance/Gait/Functional tests Balance/Special Test Scores Lower Extremity Functional Score: 39 TUG Test Time Seconds: 14.71 Tug Test: <20 sec.=mostly independent 30 Second Chair Rise Test Seconds: 10 Goals Goals Goal 1:: PATIENT WILL BE INDEP WITH [facility] FOR CONTINUED IMPROVEMENT ONCE FORMAL PHYSICAL THERAPY CONCLUDES. Goal Time Frame: 4-6 Weeks Goal Progress: Progressing Goal 2:: PATIENT WILL COMPLETE 10 STANDS IN 30 SECS WITH ONE UE ASSIST TO DEMONSTRATE IMPROVED FUNCTIONAL STRENGTH Goal Time Frame: 4-6 Weeks Goal Progress: Goal Met Goal 3:: PATIENT WILL COMPLETE TUG IN < 15 SECS WITH STRAIGHT CANE TO DEMONSTRATE IMPROVED GAIT STABILITY Goal Time Frame: 4-6 Weeks Goal Progress: Goal Met Goal 4:: PATIENT WILL AMBULATE >400 FEET WITH STRAIGHT CANE WITH IMPROVED STRIDE LENGTH AND RECIPRICAL PATTERN INCLUDING INCREASED WEIGHT BEARING TIME ON R LE TO IMPROVE GAIT EFFICIENCY. Goal Time Frame: 4-6 Weeks Goal Progress: Goal Met Goal 5:: PATIENT WILL BE INDEP WITH A GYM EX PROGRAM FOR CONTINUED IMPROVEMENT ONCE FORMAL PHYSICAL THERAPY CONCLUDES. Goal Time Frame: 4-6 Weeks Goal Progress: Progressing Anticipated Interventions Anticipated Interventions Patient/Client Instruction: Educate patient on: Condition, Plan of Care and Risk Factors For the Purpose of:: To improve self management Therapeutic Exercise to Include: Strength training, Balance training, Flexibilty training, Gait and locomotor training and Neuromotor development For the Purpose of:: To increase ROM, To improve muscle performance and motor function, To improve ability of physical actions for home/community/work/leisure and To improve gait and locomotor functions Re-Evaluation Ending Re-evaluation ending: Please do not hesitate to contact me at [phone] by phone or if you have questions or concerns regarding this new plan of care! Sincerely, Fior Gordon, PT, Cert MDT
--- NOTE | 2023-06-29 10:45 | HP.PTREVAL ---
Re-Evaluation Intro: JOSH BEYER, It has been my pleasure to treat GERI CALVILLO over the last 28 visits for R LEG WEAKNESS. Please see the progress note below for an update on the physical therapy plan of care! Subjective Subjective: PATIENT REPORTS SHE HAS IMPROVED OVER THE LAST MONTH. SHE REPORTS SHE HAS MORE STABILITY WHEN SHE WALKS. SHE STATES THAT WHEN SHE COMES HERE SHE CAN TELL HER LEGS FEEL A LITTLE BIT STRONGER. SHE REPORTS HER R LEG ISN'T GOOD IT COULD BE AND SHE KNOWS SHE NEEDS TO KEEP EXERCISING. SHE REPORTS THE ONLY TIME SHE HAS FALLEN WAS AT WORK ABOUT 2 WEEKS AGO ON STEPS. SHE REPORTS SHE SHOULDN'T HAVE BEEN ON THOSE STEPS BECAUSE SHE NEVER USES THEM AND IT DOESN'T HAVE A HANDRAIL AT THE RIGHT ANGLE FOR HER. SHE REPORTS SHE HURT HER R KNEE AND IT ISN'T SORE ANYMORE. SHE DENIES SEEKING MEDICAL ATTENTION FOR HER KNEE. SHE REPORTS SHE CAN GO AROUND THOSE STEPS SHE JUST DIDN'T. PATIENT REPORTS SHE STARTED WEARING A NEW PAIR OF SHOES MORE LATELY AND SHE DOESN'T FEEL LIKE HER R LEG WORKS GOOD IN THEM HER OTHER PAIR. SHE REPORTS SHE THOUGHT IT WOULD BE BETTER WITH THE NEW SHOES BUT IT DOESN'T SEEM TO BE. UPON FURTHER QUESTIONING TODAY PATIENT REPORTS THE ONLY STROKE SHE HAD WAS IN APPROX 2018 AND IT DID NOT EFFECT HER LEGS. Objective Objective/Function: PATIENT WAS SEEN TODAY FOR RE-ASSESSMENT OF PROGRESS TOWARD THE SET PT GOALS AND THE NEED FOR FURTHER PHYSICAL THERAPY VS READINESS FOR DISCHARGE. PATIENT IS MAKING SLOW PROGRESS WITH PT BUT CONTINUES TO HAVE BALANCE PROBLEMS AND SAFETY CONCERNS. HER GOAL IS TO HAVE A MEMBERSHIP HERE AT [employer] AND EXERCISE ON THE MACHINES AGAIN. SHE HAS PROGRESSED TO THE MACHINES BUT IS NOT SAFE WITH INDEP GYM EX'S. SHE REMAINS A FALL RISK. SHE AMBULATES INDEP'LY INTO PT TODAY WITH A STRAIGHT CANE WITH A STEP THROUGH GAIT PATTERN BUT SHE IS HURRYING, APPEARS UNSTEADY, REQUIRES CUES TO SLOW DOWN BUT NO LOB ON THE WAY IN. SHE DID HOWEVER LOSE HER BALANCE ON THE WAY OUT WHICH SHE REGAINED INDEP'LY. WEARING NEW SHOES. DECREASED HEEL STRIKE AND TOE OFF R LE. Motor deficit: R HIP 4/5, KNEE 4/5, ANKLE 3-/5. L HIP 4+/5, KNEE 5/5, ANKLE 5/5. BALANCE: ABLE TO SLS ON L LE X 4 SEC AND ONLY ABLE TO SLS ON R LE X 2 SEC WITHOUT UE ASSIST. POSSIBLE BENEFITS OF AFO FOR RLE WERE AGAIN DISCUSSED WITH PATIENT BUT SHE DOES NOT SEEM TO BE ABLE TO MAKE A DECISION ABOUT TRYING ONE OR NOT. PATIENT ATTENDED THIS SHARRON'T ALONE TODAY. SHE STATES SHE WOULD LIKE TO CONTINUE PHYSICAL THERAPY. SHE IS UNABLE TO REPORT WHEN SHE HAD HER LAST SHARRON'T WITH JOSH BEYER OR WHEN HER NEXT SHARRON'T IS. THIS PT WOULD LIKE TO DISCUSS A PHYSICAL THERAPY PLAN OF CARE WITH HER REFERRING PRACTITIONER PRIOR TO SCHEDULING MORE VISITS AND PATIENT IS AGREEABLE. Plan Plan Plan: HOLD PT. WILL CALL [facility] TO TRY TO SPEAK WITH JOSH BEYER TO DISCUSS POSSIBLE BENEFITS OF R AFO AND POC FOR PT MOVING FORWARD. Balance/Gait/Functional tests Balance/Special Test Scores Lower Extremity Functional Score: 39 TUG Test Time Seconds: 14.71 Tug Test: <20 sec.=mostly independent 30 Second Chair Rise Test Seconds: 10 Goals Goals Goal 1:: PATIENT WILL BE INDEP WITH [facility] FOR CONTINUED IMPROVEMENT ONCE FORMAL PHYSICAL THERAPY CONCLUDES. Goal Time Frame: 4-6 Weeks Goal Progress: Progressing Goal 2:: PATIENT WILL COMPLETE 10 STANDS IN 30 SECS WITH ONE UE ASSIST TO DEMONSTRATE IMPROVED FUNCTIONAL STRENGTH Goal Time Frame: 4-6 Weeks Goal Progress: Goal Met Goal 3:: PATIENT WILL COMPLETE TUG IN < 15 SECS WITH STRAIGHT CANE TO DEMONSTRATE IMPROVED GAIT STABILITY Goal Time Frame: 4-6 Weeks Goal Progress: Goal Met Goal 4:: PATIENT WILL AMBULATE >400 FEET WITH STRAIGHT CANE WITH IMPROVED STRIDE LENGTH AND RECIPRICAL PATTERN INCLUDING INCREASED WEIGHT BEARING TIME ON R LE TO IMPROVE GAIT EFFICIENCY. Goal Time Frame: 4-6 Weeks Goal Progress: Goal Met Goal 5:: PATIENT WILL BE INDEP WITH A GYM EX PROGRAM FOR CONTINUED IMPROVEMENT ONCE FORMAL PHYSICAL THERAPY CONCLUDES. Goal Time Frame: 4-6 Weeks Goal Progress: Progressing Anticipated Interventions Anticipated Interventions Patient/Client Instruction: Educate patient on: Condition, Plan of Care and Risk Factors For the Purpose of:: To improve self management Therapeutic Exercise to Include: Strength training, Balance training, Flexibilty training, Gait and locomotor training and Neuromotor development For the Purpose of:: To increase ROM, To improve muscle performance and motor function, To improve ability of physical actions for home/community/work/leisure and To improve gait and locomotor functions Re-Evaluation Ending Re-evaluation ending: Please do not hesitate to contact me at [phone] by phone or if you have questions or concerns regarding this new plan of care! Sincerely, Fior Gordon, PT, Cert MDT
--- NOTE | 2023-09-01 16:56 | HP.PTDCNRP_ITS ---
Patient Information Patient Information: GERI CALVILLO was seen in my office for initial evaluation on 03/06/23. The following Plan of Care was established for this patient: POC Established Initial Frequency: 2x /Week Initial Duration: 4-6 Weeks Anticipated Interventions Patient/Client Instruction: Educate patient on: Condition, Plan of Care and Risk Factors For the Purpose of:: To improve self management Therapeutic Exercise to Include: Strength training, Balance training, Flexibilty training, Gait and locomotor training and Neuromotor development For the Purpose of:: To increase ROM, To improve muscle performance and motor function, To improve ability of physical actions for home/community/work/leisure and To improve gait and locomotor functions Last Seen Last Seen: This patient was last seen in our office . Pertinent comments regarding their P hysical therapy will appear below: This patient has returned to PT with new orders and is being seen with a new chart at this time. At this point I will be discontinuing this patient from physical therapy. I would be happy to see this patient again in the future if found appropriate by the physician. Thank you! Fior Gordon, PT, Cert MDT Balance/Gait/Functional tests Balance/Special Test Scores Lower Extremity Functional Score: 39 TUG Test Time Seconds: 14.71 Tug Test: <20 sec.=mostly independent 30 Second Chair Rise Test Seconds: 10
== END 2023-06-19 19:00 | disposition home or self-care (01) ==
LOC: PT 15:00
PROVIDERS: PCP Internal Medicine; Referring Provider Physician Assistant Medical; Visit Provider Physician Assistant Medical
DX: R26.9 Unspecified abnormalities of gait and mobility (principal)
CPT/HCPCS: 97110; 97113; 97162; 97164

== ENCOUNTER 2023-12-13 15:30 | Outpatient (RCR) | payer OTHER, SELFPAY ==
--- NOTE | 2023-08-09 18:33 | HP.PTEVAL_ITS ---
Patient's Visit Information Visit Information Visit Information: GERI CALVILLO is a 63 year old F referred to Physical Therapy by Dr. Diamond Sanchez MD with a diagnosis of Parkinsonism. Date of Evaluation: 08/09/23 Physical Therapist: LEONIE Pereira Visit Plan Frequency: 2x /Week Duration: 2 Months Plan: 2X/ week 8 weeks for gait training, strength on B LE and UE, balance, functional activites (curb steps) with HEP Give Kitchen sink exercises B for home next visit. Subjective Subjective: Pt reports that in a few weeks she will have a brace on her R leg (AFO) and that should help her not to trip on the R LE., She has been tripping especially when she tries to get up in the middle of the night. She has fallen once or twice in the last 6 mo. She is trying to get everything up so she is not tripping on it. She uses a cane and has been using it for a year. She has stairs to get up to her apartment and it has a railing but it leaves splinters in her hands. She goes two feet to a stair when doing them. She drives. She reports that she struggles getting out of a chair and has to watch falling. She has no dizziness. She has no trouble in and out of bed. Dr wants her to come to PT cause she needs some strength in her limbs and be able to manuver better. Her Dx is parkinsonism. Last year was the worst for her... everything she was doing was not going well with her leg and everything. Her whole L side (UE/LE) are longer than the L side. She was falling to her R side all the time. Her R side is more stiff and weaker compared to her L side. She struggles to get off the floor. She is L handed. Objective Objective: Gait: walks with a straight cane with a step two gait pattern. Her L leg is able to step farther than her R and decreased step length on the R When pt is standing on the R LE it does shake and show signs of weakness when doing exercises with the L LE. Had pt walk with rollator and she was able to walk with more of a smoother gait pattern and advance her R leg more than with a straight cane FGA: 6 (stairs were not tested today so scored a zero) LE MMT: R hip flex 10.1 and L 12.8 R knee ext 15 and L 17.7 R knee flex 8.9 and L 12.8 UE MMT: R shoulder flex 4. and L 5.9 R shoulder ER 4.6 and L 6.3 Balance/Special Test Scores Functional Gait Assessment Score: 6 % Disability: 80.0000 Lower Extremity Functional Score: 26 Goals Goal 1:: I HEP Goal Time Frame: 6-8 Weeks Goal 2:: Increase LE strength (at the time of the eval: LE MMT: R hip flex 10.1 and L 12.8 R knee ext 15 and L 17.7 R knee flex 8.9 and L 12.8) Goal Time Frame: 6-8 Weeks Goal 3:: Be able to complete 3 X 10 hip flexion, hip abd, and hip ext exercises on the L while standing on the R without any signs of instability Goal Time Frame: 6-8 Weeks Goal 4:: Be able to walk with a straight cane with more of an equal step length with CGA Goal Time Frame: 6-8 Weeks Goal 5:: Improve balance (score on FGA was 6) at eval Goal Time Frame: 6-8 Weeks Rehabilitation Potential Rehabilitation Potential: Good Anticipated Interventions Patient/Client Instruction: Educate patient on: Condition and Plan of Care For the Purpose of:: To decrease pain, To increase ROM, To improve nutrient delivery to tissue, To improve muscle performance and motor function, To improve gait and locomotor functions, To improve health of tissue, To decrease soft tissue restriction, To increase flexibility/ROM, To improve endurance, To improve balance and To improve safety with gait Therapeutic Exercise to Include: Strength training, Endurance training, Balance training, Postural training, Gait and locomotor training, Neuromotor development, Active ROM, Dynamic Lumbar Stabilization and Scapular Strength/Stabilization Text: Thank you for the opportunity to evaluate your patient. For Medicare and Medicare HMO plans, please review the plan of care and approve it. It will need to be FAXED BACK to us at [phone] for Medicare purposes. For Medicare only, by signing this I certify the plan of care. Please let me know if there are questions or concerns regarding this plan of care. Physician Signatu re: Date:
--- NOTE | 2023-09-20 14:26 | HP.SP.EV_ITS ---
Visit History Visit Info Date of Eval: 09/13/23 Visit: 1 Multiple Effect Evaporator Operator: LAUREL History Attending Doctor: Referring Doctor: Reason for Referral: [facility] Medical Diagnosis: Parkinson Disease Previous speech therapy: Yes Results: She had previous speech therapy at this facility with good results for cognitive therapy. Other Relevant Medical History/Diagnoses/Surgery: Stroke in 2017, Parkinsinism. Medications related to this diagnosis: mamantine, spiroholactone, warfarin, rosuvastatin. Smoking Status: Never smoker Diagnosis Diagnosis: Parkinsonism. Cognitive deficits. Pain Is pain an issue with your current prescribed condition?: No Personal Preferred language: Andorran Patient Allergies Allergies Allergies: Allergies sulfamethoxazole [From Bactrim] Allergy (Verified 01/01/21 11:34) Hives trimethoprim [From Bactrim] Allergy (Verified 01/01/21 11:34) Hives Objective Cog/Ling/Com Test Administered Fpikoleof-Ahkwgdjybr-Kaegifkvpuxop Assessment Administered: Yes Saiscieof-Rbxbqnjwrb-Iuacvqratgdtf Assessment: Cognitive ? Linguistic skills were evaluated using patient/family interview, skilled observation and informal evaluation through tasks completed by the patient. Orientation Orientation: Person, Birthdate and Medical Diagnosis Answer Yes/No Questions Simple: WNL Conversational Tasks Conversational Tasks: Moderate Comments: Mai had difficulty with conversational skills with anomia. Intermittently she was able to write a word to continue the conversation. Communication is slow and labored. Problem Solving Simple: WNL Complex: Mild Judgement & Reasoning Judgement/Reasoning: Mild CLQT CLQT CLQT Administered: Yes CLQT: Cognitive Linguistic Quick Test (CLQT) is a criterion - referenced assessment designed for adults between the ages of 18 and 89 with known or suspected neurological dysfuntions. The CLQT is to assess strength and weaknesses in five cognitive domains. Severity ratings are within normal limits, mild, moderate, severe deficits. The subtests are as follows: Date: 09/13/23 Attention Attention: WNL Memory Memory: Mild Executive Functions Executive Functions: Mild Language Language: Mild Visuospatial Skills Visuospatial Skills: WNL Composite Severity Rating Composite Severity Rating: Mild Clock Drawing Severity Rating Clock Drawing Severity Rating: Mild CLQT Comments CLQT Results: -: Patient scored within normal limits on all tests except clock drawing, generative naming, and design generalization on which she scored in the mild domain. Patient was able to quickly and accuractely provide personal facts but had the most difficulties when naming names of animals and words that started with m. Patient asked for paper to make a list to help with naming m words and animals. Patient was very labored and anxious during the CLQT. Previous scores: -: CLQT scores from April 2023 - Attention: Mild, - Memory: WNL, - Executive Functions: Moderate, - Language: WNL, - Visuospatial Skills: Mild, Composite Severity Rating: Mild, - Clock Drawing Severity Rating: Severe CLQT Scores from August 2021 Mai completed the CLQT in August 2021. Her scores were the following: Attention: WNL, Memory: WNL, Executive Functioning: WNL, Language: WNL, Visuospatial Skills: WNL, Overall Rating: WNL. Mai's scores have considerable decreased on this assessment. Mai now is scoring in the range that indicates a mild to moderate cognitive deficit. Reference: Neuro-QoL instrument Radiation Oncology Patient Other Other Reading: -: Patient reported that she is having difficulty with comprehension of reading and requested strategies to help her comprehend. Further assessment is needed for reading. She lives alone and is currently driving. She reported that her cognitive skills are better now that she has started a medication but not typical yet. Plan Plan Plan: Speech therapy is warranted for cognitive-linguistic deficits for executive function deficits as well as anomia. Recommendations Treatment Warranted: Yes Treatment Warranted: Receptive/ Expressive Language and Cognition Comment: Patient scored mild on the language portion of the CLQT. Progress Prognosis: Good Frequency Frequency: 1x/Week Duration: 4 Months Patient/Family Goal Patient/Family Goal: Patient stated she wants to do better. Goals that are Established Determination:: Goals will be added/modified as deemed necessary and appropriate. Therapy will be discontinued when results of re-evaluation indicate therapy is no longer needed or lack of progress has been documented. Goal #1-5 Goal #1: Reading assessment. Goal #2: Mai will make lists to help with her anomia during structured naming tasks in 3/4 trials with 80% accuracy. Goal #3: Mai will complete executive function tasks including but not limited to problem solving, judgement, reasoning tasks on 4/5 trials with minimal cues on 2/3 consecutive sessions. Education Patient has Indicated that the Following Identified Educational Needs: None The Patient has indicated that they have no educational or learning abilities that may effect their care.: Yes Patient Instruction Patient Education: Diagnosis, Treatment Plan and Goals Person Taught: Patient Teaching Method: Discussion Response to teaching: Verbalize understanding
--- NOTE | 2023-10-23 15:39 | HP.PTREVAL ---
Re-Evaluation Intro: Dr. Diamond Sanchez MD, It has been my pleasure to treat GERI CALVILLO over the last 16 visits for Parkinsonism. Please see the progress note below for an update on the physical therapy plan of care! Subjective Subjective: Pt reports that for the most part she is walking better with her brace (almost everyday). When she is home over the weekend she tried to put her brace on anyway to balance her. She started doing exercises for her upper body. She is doing it on her lunch hour at work. She is using the rollator at work. She does not use the rollator at home. When she goes out she uses the cane. She had a fell when her T-band slipped of the knob and she fell on her butt was not hurt. She feels that she is improving but still needs to work on her strength and walking with good form and better stride pattern . She has worked out on the machines a few times and it worked well but still hard for her to maneuver them with her brace. Pt feels that she needs to still work on curbs as well Objective Objective/Function: R hip flex 10.1 and L 12.8 R knee ext 18.1 and L 17.9 R knee flex 8.9 and L 12.8 Gait: pt walks with her brace on and straight cane with a step two pattern until cued to take larger more step through gait pattern steps. (pt was nervous about getting in here and I could tell because her R arm was outstretched). FGA 9 Curb Step with 6 inch and just straight cane and min A (X4)....feels more comfortable going up with the L and down with the R leg. Plan Plan Plan: Encouraged pt to start strength training at least once a week and to work on taking equal step length with a cane and increase HEP kitchen sink exercises to 3 sets instead of 2. Gait with the brace with the cane and possible curb steps 2X/ week 2 weeks for curb steps, step through gait pattern with straight cane and other high level balance exercises. Encourage pt to come in and do weights at least once a week and increase Kitchen sink exercises to 3 sets. Balance/Gait/Functional tests Balance/Special Test Scores Functional Gait Assessment Score: 9 % Disability: 70.0000 Lower Extremity Functional Score: 26 TUG Test Time Seconds: 17.54 Tug Test: <20 sec.=mostly independent Goals Goals Goal 1:: I HEP Goal Time Frame: 6-8 Weeks Goal 2:: Increase LE strength (at the time of the eval: LE MMT: R hip flex 10.1 and L 12.8 R knee ext 15 and L 17.7 R knee flex 8.9 and L 12.8) Goal Time Frame: 6-8 Weeks Goal Progress: Not Progressing Goal 3:: Be able to complete 3 X 10 hip flexion, hip abd, and hip ext exercises on the L while standing on the R without any signs of instability Goal Time Frame: 6-8 Weeks Goal Progress: Progressing Goal 4:: Be able to walk with a straight cane with more of an equal step length with CGA Goal Time Frame: 6-8 Weeks Goal Progress: Progressing Goal 5:: Improve balance (score on FGA was 6) at eval Goal Time Frame: 6-8 Weeks Goal Progress: Progressing Goal 6:: Be able to go up and down a 6 inch curb step with straight cane and CGA Goal Time Frame: 6-8 Weeks Anticipated Interventions Anticipated Interventions Patient/Client Instruction: Educate patient on: Condition and Plan of Care For the Purpose of:: To decrease pain, To increase ROM, To improve nutrient delivery to tissue, To improve muscle performance and motor function, To improve gait and locomotor functions, To improve health of tissue, To decrease soft tissue restriction, To increase flexibility/ROM, To improve endurance, To improve balance and To improve safety with gait Therapeutic Exercise to Include: Strength training, Endurance training, Balance training, Postural training, Gait and locomotor training, Neuromotor development, Active ROM, Dynamic Lumbar Stabilization and Scapular Strength/Stabilization Re-Evaluation Ending Re-evaluation ending: Please do not hesitate to contact me at [phone] by phone or if you have questions or concerns regarding this new plan of care! Sincerely, Davina Tyler, MPT
--- NOTE | 2023-11-26 14:10 | HP.SP.DC ---
ST Discharge Summary Discharged: Discharge: Mai Grover is discharged from Speech therapy at [facility] as of 11/26/23 at her request. She stated that she is doing better currently and does not wish to use all her insurance visits as it is only November. She was evaluated on 09/20/23 with a diagnosis of cognitive deficits. Further testing completed: CLQT CLQT Administered: Yes CLQT: Cognitive Linguistic Quick Test (CLQT) is a criterion - referenced assessment designed for adults between the ages of 18 and 89 with known or suspected neurological dysfuntions. The CLQT is to assess strength and weaknesses in five cognitive domains. Severity ratings are within normal limits, mild, moderate, severe deficits. The subtests are as follows: Date: 09/13/23 Attention Attention: WNL Memory Memory: Mild Executive Functions Executive Functions: Mild Language Language: Mild Visuospatial Skills Visuospatial Skills: WNL Composite Severity Rating Composite Severity Rating: Mild Clock Drawing Severity Rating Clock Drawing Severity Rating: Mild CLQT Comments CLQT Results: -: Patient scored within normal limits on all tests except clock drawing, generative naming, and design generalization on which she scored in the mild domain. Patient was able to quickly and accuractely provide personal facts but had the most difficulties when naming names of animals and words that started with m. Patient asked for paper to make a list to help with naming m words and animals. Patient was very labored and anxious during the CLQT. Her goals focused on reading assessment, anomia strategies as well as executive function tasks including but not limited to problem solving, judgement, reasoning tasks. She was able to read a full passage with 90% accuracy for answering questions. She stated sometimes she has to read something more than once if it is complex. She also had very limited anomia (3x during last session) and was able to use wait time to come up with the word. She completed inferences and deduction puzzles appropriately. This therapist was in agreement with her discharge. Please see daily notes for complete details. Thank you for allowing me to participate in the care of this patient.
--- NOTE | 2023-12-13 19:01 | HP.PTDCSUM ---
Discharge Summary D/C summary: It has been my pleasure to treat GERI CALVILLO referred by Dr. Diamond Sanchez MD, with the diagnosis of Parkinsonism for a total of 24 visit(s). Discharge Date: 12/13/23 Please see the following information for a summary of their discharge status. Subjective Subjective: Pt could not lift her leg in therapy today because she was standing too long on it at work. Pt reports that she is feeling good. Pt is thinking about coming in and doing some weights as part of H&W. She feels that she does netter at work with her AFO on and if she does not have it on she takes a lot longer. Pain R LEG: Pain Intensity (Out of 10): 2 L knee: Pain Intensity (Out of 10): 3 R knee pain: Pain Intensity (Out of 10): 2 Overall Improvement % Improvement: 75 Objective Objective/Function: Stairs: Pt struggles with our steps using her cane and a railing but able to do them but slower to make sure she clears her foot on the steps Curb steps: min A for 6 inch curb step with cane and therapist min A. Gait: pt walks with step through gait pattern instead of step two pattern...much improved Goals Goal 1:: I HEP Goal Progress: Goal Met Goal 2:: Increase LE strength (at the time of the eval: LE MMT: R hip flex 10.1 and L 12.8 R knee ext 15 and L 17.7 R knee flex 8.9 and L 12.8) Goal Progress: Not Progressing Goal 3:: Be able to complete 3 X 10 hip flexion, hip abd, and hip ext exercises on the L while standing on the R without any signs of instability Goal Progress: Goal Met Goal 4:: WORK UP AND DOWN STEPS WITH 1 RAIL AND CANE WITH CGA Goal Progress: Goal Met Goal 5:: Improve balance (score on FGA was 6) at eval Goal Progress: Progressing Goal 6:: Be able to go up and down a 6 inch curb step with straight cane and CGA Plan Plan: Pt to do H&W for strengthening on her own for now. DC PT D/C Information Discharge Comments: DC PT to HEP d/c sentence: If there are questions or concerns regarding this patient's physical therapy, please feel free to call me at [phone]. Thank you for the referral of this patient. Sincerely, Davina Tyler, MPT Balance/Gait/Functional tests Balance/Special Test Scores Functional Gait Assessment Score: 9 % Disability: 70.0000 Lower Extremity Functional Score: 34 TUG Test Time Seconds: 17.54 Tug Test: <20 sec.=mostly independent Improvement % Improvement: 75
== END 2023-12-13 19:00 | disposition home or self-care (01) ==
LOC: PT 15:30
PROVIDERS: PCP Internal Medicine; Referring Provider Internal Medicine; Visit Provider Internal Medicine
DX: G20.C Parkinsonism, unspecified (principal); R26.81 Unsteadiness on feet
CPT/HCPCS: 92507; 92523; 97110; 97112; 97116; 97129; 97130; 97161; 97530

== ENCOUNTER 2024-07-29 20:40 | Emergency (ER) | payer OTHER, SELFPAY ==
[2024-07-29] VITALS (7 sets, daily range): BP systolic 137–174; BP diastolic 69–82; PULSE 80–93; RESP 13–27; TEMP 36.6–36.7; O2SAT 97–100
--- NOTE | 2024-07-29 22:30 | RAD_ITS ---
PROCEDURE: Right wrist radiographs REASON FOR EXAM: Pain, trauma TECHNIQUE: Three views of the right wrist COMPARISON: None FINDINGS: See impression RAD/Wrist min 3 Views IMPRESSION: Acute comminuted intra-articular fracture of the distal radius with dorsal disp lacement. Surrounding soft tissue swelling. No additional fractures or dislocation. Reading Location: [facility]
--- NOTE | 2024-07-29 22:42 | EX.ED.UPPERE ---
HPI History of Present Illness Chief Complaint: Upper Extremity Injury Detail of Chief Complaint: Patient slipped and landed on outstretched right upper extremity. Informant: patient and friend Occured/Mechanism Mechanism/Context: Yes injury, Yes blunt trauma and Yes same level fall Onset/Context/Timing Onset: Hours (1700) Context: Sudden Onset Timing: Continuous Quality of Pain: Dull and Aching Location: Right wrist Current Severity: Mild Maximum Severity: Mild Worsened by: Movement Relieved by: Immobilization Associated Symptoms Associated Symptoms: Positive for Loss of Funtion; Negative for Parasthesia or Weakness Narrative Narrative: Patient is a 64-year-old onwl-lvva-tgjsrckr woman who has history of kidney disease, moramata telangiectasia who presents from urgent care because of fractured wrist. They made photocopies of 2 of the images. There is concern based on the 1 image at this may be an intra-articular fracture. Patient was told that I would need to reimage her. She has deformity of that extremity due to her telangiectasia. She is also on Coumadin. The hand is discolored and the vessels appear abnormal. Patient states this is normal for her. She also has a progressive expressive aphasia and history was supplemented by friends. Prior similar symptoms: No Recent Illness/Hospitalization: No [facility] Medical History Syncope Osteopenia Non-smoker Breast cancer Hypertension Tremor VTE (venous thromboembolism) Home Medications ?Medication ?Instructions ?Recorded ?Last Taken ?Type primidone 50 mg tablet 100 mg PO TID 01/31/18 12/31/20 History spironolactone 25 mg tablet 25 mg PO DAILY 01/31/18 12/31/20 History warfarin 5 mg tablet 2.5 mg PO SUMOWEFR BLOOD THINNER 01/31/18 12/31/20 History calcium carbonate 500 mg PO DAILY 03/10/18 12/31/20 History multivitamin with folic acid 400 1 tab PO DAILY 03/10/18 12/31/20 History mcg tablet (Thera) omega 3-dha 60 mg-epa 90 mg-fish 500 mg PO DAILY 03/10/18 12/31/20 History oil 500 mg capsule, delayed release (Fish Oil) fluticasone propionate 50 2 spray intranasal DAILY SINUS 01/01/21 Unknown History mcg/actuation nasal spray,suspension warfarin 5 mg tablet 5 mg PO SUWE BLOOD THINNER 01/01/21 12/30/20 History gabapentin 300 mg capsule 300 mg PO BID #0 caps 01/02/21 Unknown Rx rosuvastatin 5 mg tablet 5 mg PO DAILY 07/29/24 Unknown History sertraline 50 mg tablet 50 mg PO DAILY 07/29/24 Unknown History tizanidine 4 mg tablet 4 mg PO Q8H PRN muscle relaxation 07/29/24 Unknown History triamcinolone acetonide 0.1 % 1 applic topical BID PRN PRN 07/29/24 Unknown History topical cream itching hydrocodone-acetaminophen 5-325mg 1 tab PO Q6H PRN PRN Pain 3 days 07/30/24 Unknown Rx 5mg-325mg #10 TABLETS Allergy/AdvReac Type Severity Reaction Status Date / Time sulfamethoxazole (From Allergy Hives Verified 07/29/24 20:42 Bactrim) trimethoprim (From Bactrim) Allergy Hives Verified 07/29/24 20:42 atorvastatin AdvReac Upset Verified 07/29/24 20:42 Stomach Social History Smoking Status: Never smoker ROS ROS ED Eyes Eyes: Denies blurry vision, change in vision or diplopia ENT ENT ED: Denies ear pain, rhinorrhea or sore throat Cardiovascular Cardiovascular: Denies chest pain Respiratory/Chest Respiratory/Chest: Denies dyspnea Gastrointestinal Gastrointestinal: Denies nausea or vomiting Neurologic Neurologic: Denies paresthesias or weakness Hematologic/Lymphatic Hematologic/Lymphatic: Reports easy bruising EXAM Physical Exam Const Vital Signs: 07/29/24 20:45 Temperature 98.1 F Temperature Source Oral Pulse Rate 87 Respiratory Rate 17 Blood Pressure 174/77 H Blood Pressure Mean 109 Pulse Ox 98 Oxygen Delivery Method Room Air Positive well nourished and well developed General Appearance ED: well developed and NAD HEENT Reports moist mucous membranes normocephalic and atraumatic Eyes PERRL and EOMs intact bilaterally Eyes Narrative: No subconjunctival hemorrhage. Neck full ROM General: Negative for tenderness Resp normal respiratory effort Cardio regular rate and regular rhythm GI non-tender, non-distended and no masses Extremity Negative for normal to inspection or full ROM Extremity Narrative: Patient has what appears to be a silver-fork deformity of the right wrist. Median, radial and ulnar function intact. Patient has abnormality i.e. shortening of that forearm and hand as well as abnormal vasculature due to her telangiectasia. Neuro oriented x3, CN's II-XII intact bilaterally, moves all extremities, no focal motor deficits and no sensory deficits noted Sensorium / Orientation: alert Psych mental status grossly normal Skin Skin Narrative: Telangiectasia MDM MDM MDM Narrative Medical decision making narrative: Repeat images reveals a transverse extra-articular distal radial fracture with 20 degrees of volar apex angulation. The fracture does not go into the joint line.The carpal bones are aligned properly. Radiography Chest X-Ray - ED: Read by ED Physician (Three-view x-ray reveals a extra-articular transverse distal radial fracture with 20 degrees of volar apex angulation.There is no involvement of the ulnar styloid.) and - (2 views of the right wrist was obtained postreduction. Patient has near anatomical reduction. There is loss of volar tilt. Patient was discharged to home in stable condition. This was independent reviewed interpreted by me.) Treatment and Re-Evaluation Narrative: Patient and family were made aware of postreduction films and given a copy. Procedures Procedural Sedation 1 (Initial Baseline): Consent Signed: Yes Any Problems With Anesthesia: No You/Your family experience fever (hyperthermia) w/anesthesia: No Sedation medication: Propofol Dose: 50 Route: IV Total Moderate Sedation Units: 8 (Minutes) Maliampati Score: Class II ASA Classification: E and II Comment:: Patient received a total of 50 mg of etomidate. Once desired effect was achieved underwent closed reduction of the transverse distal radial fracture. Patient was placed in short arm AP plaster splint. She was referred to Dr. Mendez who she has seen in the past and would like to follow-up with him. Discharge Plan Triage Chief Complaint: Upper Extremity Injury ED Provider: Rogelio Briones Dx/Rx/DC Orders Clinical Impression: Displaced fracture of distal end of right radius, Telangiectasia, Elevated blood pressure reading with diagnosis of hypertension, Anticoagulant long-term use Instructions: ED Fracture, Wrist, General Prescriptions: New hydrocodone-acetaminophen 5-325 mg tablet 1 tab PO Q6H PRN PRN (Reason: Pain) 3 Days Qty: 10 0RF No Action primidone 50 MG tablet 100 mg PO TID Patient Comments: spironolactone 25 MG tablet 25 mg PO DAILY Patient Comments: warfarin 5 MG tablet 2.5 mg PO SUMOWEFR Patient Comments: calcium carbonate 500 MG tablet 500 mg PO DAILY Fish Oil 500 MG capsule,delayed release(DR/EC) 500 mg PO DAILY multivitamin with folic acid [Thera] 1 TABLET tablet 1 tab PO DAILY warfarin 5 mg tablet 5 mg PO SUWE Patient Comments: TAKE 4 TABLETS BY MOUTH ON MONDAY AND MONDAY, AND 3 TABLETS ON ALL OTHER DAYS OR DIRECTED fluticasone propionate 50 mcg/actuation spray,suspension 2 spray INTRANASAL DAILY Patient Comments: instill 2 sprays into each nostril once daily FOR NASAL DRAINAGE ... (REFER TO PRESCRIPTION NOTES). gabapentin 300 mg Capsule 300 mg PO BID Qty: 0 0RF sertraline 50 mg tablet 50 mg PO DAILY rosuvastatin 5 mg tablet 5 mg PO DAILY triamcinolone acetonide 0.1 % cream 1 applic topical BID PRN PRN (Reason: itching) tizanidine 4 mg tablet 4 mg PO Q8H PRN (Reason: muscle relaxation) Primary Care Provider: Diamond Sanchez Referrals: Diamond Sanchez MD [Primary Care Provider] - Yunior Mendez MD [Med Staff - Active Staff] - 5-7 Days Print Language: Chinese Disposition Disposition: Home, Self Care
[2024-07-29] MEDS: Propofol 200 MG/20 ML Vial IV BOLUS (23:32)
--- NOTE | 2024-07-29 23:40 | RAD_ITS ---
PROCEDURE: Right wrist radiographs REASON FOR EXAM: Pain, fracture, postreduction TECHNIQUE: Two views of the right wrist COMPARISON: Same day radiographs FINDINGS: See impression RAD/Wrist 2 Views IMPRESSION: Interval reduction of the comminuted intra-articular fracture of the distal rad ius. Alignment is anatomic. Cast material was placed. Reading Location: [facility]
[2024-07-30 00:48] VITALS: BP 158/63; PULSE 79; RESP 17; TEMP 36.1; O2SAT 97
== END 2024-07-30 00:49 | disposition home or self-care (01) ==
PROVIDERS: Emergency Provider Emergency Medicine; PCP Internal Medicine; Referring Provider Emergency Medicine; Visit Provider Emergency Medicine
DX: S52.571A Other intraarticular fracture of lower end of right radius, initial encounter for closed fracture (principal); I10 Essential (primary) hypertension; I78.1 Nevus, non-neoplastic; Z79.01 Long term (current) use of anticoagulants; W01.0XXA Fall on same level from slipping, tripping and stumbling without subsequent striking against object, initial encounter; Z85.3 Personal history of malignant neoplasm of breast; Z79.899 Other long term (current) drug therapy
CPT/HCPCS: 25605; 73100; 73110; 99284; A4216